=== PATIENT | male | born 1960 | race Caucasian/White ===

== ENCOUNTER 2021-04-09 16:32 | Observation (INO) | payer MEDICARE ==
[2021-04-09] MEDS ORDERED: Sodium Chloride 0.9% 10 ML Syringe FLUSH PRN (17:12)
[2021-04-09] MEDS ORDERED: Aspirin 81 MG Tab.Chew PO ONE (17:14)
[2021-04-09] MEDS ORDERED: Albuterol/Ipratropium 3.0-0.5 MG/3 ML Neb Soln NEB ONE ×2 (17:34→18:45)
[2021-04-09] MEDS ORDERED: LORazepam 2 MG/ML SDV IVPUSH ONE (18:43)
[2021-04-09] MEDS ORDERED: methylPREDNISolone Sodium Succinate 125 MG/2 ML SDV IVPUSH ONE (18:44)
--- NOTE | 2021-04-09 19:02 | CR ---
Chest: PA and lateral views of the chest were obtained. Comparison: No prior chest imaging is available. Small hiatal hernia appears to be present. Heart size and mediastinum are within normal limits for PA technique. Minimal density within the left midlung either due to atelectasis or scarring is seen. Lungs otherwise are clear. Bony structure shows nothing acute. Impression: 1. Findings believed to be incidental as noted above. 2. Nothing acute is appreciated on 2 view chest x-ray. Diagnostic code #2
--- NOTE | 2021-04-09 19:35 | EDM.PDOC ---
ED HPI GENERAL MEDICAL PROBLEM - General Chief Complaint: Chest Pain Stated Complaint: CHEST TIGHTNESS/SOB Time Seen by Provider: 04/09/21 17:10 Source of Information: Reports: Patient, RN Notes Reviewed History Limitations: Reports: No Limitations - History of Present Illness INITIAL COMMENTS - FREE TEXT/NARRATIVE: Patient is a 60-year-old male presenting to the emergency department with complaints of shortness of breath and chest tightness. Symptoms began around 3 PM this afternoon after patient took a nap. He describes left-sided chest tightness that wraps around to his back as well as shortness of breath. Pain does not go down his arm or up into his neck. Patient reports a history of COPD as well as cardiac stenting, however he is unsure if he actually had an IA or not as he has been told different things. He did also have a blood clot in his right arm following the stenting, therefore he is on Plavix. Patient moved to the area 1 month ago and reports that he has not been using his daily maintenance inhaler or his rescue inhaler. He is also been prescribed CPAP with oxygen, however he does not have these available to him. Prior to this afternoon, he states that he was doing quite well. He has had some nasal congestion over the last few days but denies any fever, cough, abdominal pain, nausea, vomiting, or diarrhea. Left Chest Pain Score (Numeric/FACES): 7 - Related Data Allergies Allergy/AdvReac Type Severity Reaction Status Date / Time cephalexin [From Keflex] Allergy Severe Rash Verified 04/09/21 16:43 Penicillins Allergy Severe Rash Verified 04/09/21 16:43 atenolol AdvReac Severe Cough Verified 04/09/21 16:43 Iodinated Contrast Media AdvReac Severe Vomiting Verified 04/09/21 16:44 Home Meds: Home Meds Clopidogrel [Plavix] 75 mg PO DAILY 04/09/21 [History] Gabapentin [Neurontin] 600 mg PO BID 04/09/21 [History] Losartan/Hydrochlorothiazide [Losartan-HCTZ 100-25 MG] 1 each PO DAILY 04/09/21 [History] Metoprolol Succinate 50 mg PO DAILY 04/09/21 [History] Pioglitazone [Actos] 30 mg PO DAILY 04/09/21 [History] carvediloL [Carvedilol] 0 mg PO BID 04/09/21 [History] metFORMIN HCl [Metformin HCl] 1,000 mg PO BID 04/09/21 [History] Past Medical History Cardiovascular History: Reports: High Cholesterol, Hypertension, IA Respiratory History: Reports: COPD Musculoskeletal History: Reports: Fracture Endocrine/Metabolic History: Reports: Diabetes, Type II, Obesity/BMI 30+ Hematologic History: Reports: Anticoagulation Therapy - Past Surgical History Cardiovascular Surgical History: Reports: Coronary Artery Stent GI Surgical History: Reports: Appendectomy, Cholecystectomy, Other (See Below) Other GI Surgeries/Procedures: Colon Resection Musculoskeletal Surgical History: Reports: Other (See Below) Other Musculoskeletal Surgeries/Procedures:: Finger Surgery Social & Family History - Tobacco Use Tobacco Use Status *Q: Former Tobacco User Used Tobacco, but Quit: Yes Month/Year Tobacco Last Used: 2019 - Caffeine Use Caffeine Use: Reports: Coffee, Soda - Recreational Drug Use Recreational Drug Use: No ED ROS GENERAL - Review of Systems Review Of Systems: See Below Constitutional: Reports: No Symptoms. Denies: Fever, Chills HEENT: Reports: No Symptoms Respiratory: Reports: Shortness of Breath, Wheezing Cardiovascular: Reports: Chest Pain, Dyspnea on Exertion. Denies: Lightheadedness, Palpitations, Syncope Endocrine: Reports: No Symptoms GI/Abdominal: Reports: No Symptoms : Reports: No Symptoms Musculoskeletal: Reports: No Symptoms Skin: Reports: No Symptoms Neurological: Reports: No Symptoms Psychiatric: Reports: No Symptoms Hematologic/Lymphatic: Reports: No Symptoms Immunologic: Reports: No Symptoms ED EXAM, GENERAL - Physical Exam Exam: See Below Exam Limited By: No Limitations General Appearance: Alert, WD/WN, No Apparent Distress Respiratory/Chest: No Respiratory Distress, No Accessory Muscle Use, Chest Non- Tender, Decreased Breath Sounds, Prolonged Expiration, Other (Diffuse expiratory wheeze throughout) Cardiovascular: Normal Peripheral Pulses, Regular Rate, Rhythm, No Edema, No Gallop, No JVD, No Murmur, No Rub GI/Abdominal: Normal Bowel Sounds, Soft, Non-Tender, No Organomegaly, No Distention, No Abnormal Bruit, No Mass Neurological: Alert, Oriented, CN II-XII Intact, Normal Cognition, Normal Gait, Normal Reflexes, No Motor/Sensory Deficits Psychiatric: Normal Affect, Anxious #1 Interpretation EKG Date: 04/09/21 Time: 16:37 Rhythm: NSR Rate (Beats/Min): 92 [place]: LAD-Left [place] Deviation P-Wave: Present QRS: RBBB ST-T: Normal QT: Prolonged (mildly) EKG Interpretation Comments: Sinus rhythm at 92/min Right bundle branch pattern T wave inversion V1 V2 Left axis deviation (-64) QTC mildly prolonged EKG interpreted by Dr. Sonya BHATT Course - Vital Signs Last Recorded V/S: Last Vital Signs Temp 98.4 F 04/09/21 22:25 Pulse 92 04/09/21 22:25 Resp 20 04/09/21 22:25 BP 155/102 H 04/09/21 22:25 Pulse Ox 97 04/09/21 22:25 - Orders/Labs/Meds Orders: Active Orders 24 hr Category Date Time Status Patient Status [ADT] Routine ADT 04/09/21 21:18 Active EKG 12 Lead [EKG Documentation Completion] [RC] ROUTINE Care 04/09/21 16:43 Active Oxygen Therapy [RC] PRN Care 04/09/21 21:18 Active Pulse Oximetry [RC] PRN Care 04/09/21 21:20 Active RT Aerosol Therapy [RC] ASDIRECTED Care 04/09/21 17:34 Active RT Aerosol Therapy [RC] ASDIRECTED Care 04/09/21 18:45 Active RT Aerosol Therapy [RC] ASDIRECTED Care 04/09/21 20:11 Active Up With Assistance [RC] QSHIFT Care 04/09/21 21:17 Active VTE/DVT Education [RC] BID Care 04/09/21 21:18 Active Vital Signs [RC] Q4HR Care 04/09/21 21:18 Active Respiratory Care Assess and Treatment [CONS] Routine Cons 04/09/21 21:17 Active Regular Diet [DIET] Diet 04/09/21 Breakfast Active BASIC METABOLIC PANEL,BMP [CHEM] AM Lab 04/10/21 05:11 Ordered CBC WITH AUTO DIFF [HEME] AM Lab 04/10/21 05:11 Ordered Sodium Chloride 0.9% [Saline Flush] Med 04/09/21 17:12 Active 10 ml FLUSH ASDIRECTED PRN Peripheral IV Insertion Adult [OM.PC] Routine Oth 04/09/21 17:12 Ordered Resuscitation Status Routine Resus Stat 04/09/21 21:17 Ordered Medication Orders Albuterol/Ipratropium (Albuterol/Ipratropium 3.0-0.5 Mg/3 Ml Neb Soln) 3 ml NEB Q2H PRN PRN Reason: Shortness of Breath Albuterol/Ipratropium (Albuterol/Ipratropium 3.0-0.5 Mg/3 Ml Neb Soln) 3 ml NEB Q4HRRT JYOTI Methylprednisolone Sodium Succinate (Methylprednisolone Sodium Succinate 40 Mg/1 Ml Sdv) 40 mg IVPUSH Q8H JYOTI Sodium Chloride (Sodium Chloride 0.9% 10 Ml Syringe) 10 ml FLUSH ASDIRECTED PRN PRN Reason: Keep Vein Open Last Admin: 04/09/21 17:28 Dose: 10 ml Documented by: MERRITT Labs: Laboratory Tests 04/09/21 04/09/21 04/09/21 Range/Units 16:45 16:45 16:45 WBC 7.77 (4.23-9.07) K/mm3 RBC 4.83 (4.63-6.08) M/mm3 Hgb 14.3 (13.7-17.5) gm/dl Hct 43.4 (40.1-51.0) % MCV 89.9 (79.0-92.2) fl MCH 29.6 (25.7-32.2) pg MCHC 32.9 (32.2-35.5) g/dl RDW Std Deviation 44.9 H (35.1-43.9) fL Plt Count 309 (163-337) K/mm3 MPV 9.5 (9.4-12.3) fl Neutrophils % (Manual) 61 H (40-60) % Band Neutrophils % 0 (0-10) % Lymphocytes % (Manual) 22 (20-40) % Atypical Lymphs % 0 % Monocytes % (Manual) 11 H (2-10) % Eosinophils % (Manual) 5 (0.8-7.0) % Basophils % (Manual) 1 (0.2-1.2) Platelet Estimate Adequate RBC Morph Comment Normal PT 10.3 (9.7-12.0) SECONDS INR 0.96 APTT 23.9 (21.7-31.4) SECONDS D-Dimer, Quantitative 0.28 (0.19-0.50) mg/L Sodium (136-145) mEq/L Potassium (3.5-5.1) mEq/L Chloride (98-107) mEq/L Carbon Dioxide (21-32) mEq/L Anion Gap (5-15) BUN (7-18) mg/dL Creatinine (0.7-1.3) mg/dL Est Cr Clr Drug Dosing mL/min Estimated GFR (MDRD) (>60) mL/min BUN/Creatinine Ratio (14-18) Glucose (70-99) mg/dL Calcium (8.5-10.1) mg/dL Magnesium (1.8-2.4) mg/dL Total Bilirubin (0.2-1.0) mg/dL AST (15-37) U/L ALT (16-63) U/L Alkaline Phosphatase (46-116) U/L Troponin I (0.00-0.056) ng/mL NT-Pro-B Natriuret Pep (0-125) pg/mL Total Protein (6.4-8.2) g/dl Albumin (3.4-5.0) g/dl Globulin gm/dL Albumin/Globulin Ratio (1-2) SARS-CoV-2 RNA (ANNA) (NEGATIVE) 04/09/21 04/09/21 04/09/21 Range/Units 16:45 16:45 17:30 WBC (4.23-9.07) K/mm3 RBC (4.63-6.08) M/mm3 Hgb (13.7-17.5) gm/dl Hct (40.1-51.0) % MCV (79.0-92.2) fl MCH (25.7-32.2) pg MCHC (32.2-35.5) g/dl RDW Std Deviation (35.1-43.9) fL Plt Count (163-337) K/mm3 MPV (9.4-12.3) fl Neutrophils % (Manual) (40-60) % Band Neutrophils % (0-10) % Lymphocytes % (Manual) (20-40) % Atypical Lymphs % % Monocytes % (Manual) (2-10) % Eosinophils % (Manual) (0.8-7.0) % Basophils % (Manual) (0.2-1.2) Platelet Estimate RBC Morph Comment PT (9.7-12.0) SECONDS INR APTT (21.7-31.4) SECONDS D-Dimer, Quantitative (0.19-0.50) mg/L Sodium 139 (136-145) mEq/L Potassium 4.0 (3.5-5.1) mEq/L Chloride 100 (98-107) mEq/L Carbon Dioxide 30 (21-32) mEq/L Anion Gap 13.0 (5-15) BUN 10 (7-18) mg/dL Creatinine 1.2 (0.7-1.3) mg/dL Est Cr Clr Drug Dosing 74.91 mL/min Estimated GFR (MDRD) > 60 (>60) mL/min BUN/Creatinine Ratio 8.3 L (14-18) Glucose 140 H (70-99) mg/dL Calcium 8.8 (8.5-10.1) mg/dL Magnesium 2.0 (1.8-2.4) mg/dL Total Bilirubin 0.3 (0.2-1.0) mg/dL AST 70 H (15-37) U/L ALT 78 H (16-63) U/L Alkaline Phosphatase 100 (46-116) U/L Troponin I < 0.017 (0.00-0.056) ng/mL NT-Pro-B Natriuret Pep 39 (0-125) pg/mL Total Protein 7.9 (6.4-8.2) g/dl Albumin 3.5 (3.4-5.0) g/dl Globulin 4.4 gm/dL Albumin/Globulin Ratio 0.8 L (1-2) SARS-CoV-2 RNA (ANNA) Negative (NEGATIVE) 04/09/21 Range/Units 19:51 WBC (4.23-9.07) K/mm3 RBC (4.63-6.08) M/mm3 Hgb (13.7-17.5) gm/dl Hct (40.1-51.0) % MCV (79.0-92.2) fl MCH (25.7-32.2) pg MCHC (32.2-35.5) g/dl RDW Std Deviation (35.1-43.9) fL Plt Count (163-337) K/mm3 MPV (9.4-12.3) fl Neutrophils % (Manual) (40-60) % Band Neutrophils % (0-10) % Lymphocytes % (Manual) (20-40) % Atypical Lymphs % % Monocytes % (Manual) (2-10) % Eosinophils % (Manual) (0.8-7.0) % Basophils % (Manual) (0.2-1.2) Platelet Estimate RBC Morph Comment PT (9.7-12.0) SECONDS INR APTT (21.7-31.4) SECONDS D-Dimer, Quantitative (0.19-0.50) mg/L Sodium (136-145) mEq/L Potassium (3.5-5.1) mEq/L Chloride (98-107) mEq/L Carbon Dioxide (21-32) mEq/L Anion Gap (5-15) BUN (7-18) mg/dL Creatinine (0.7-1.3) mg/dL Est Cr Clr Drug Dosing mL/min Estimated GFR (MDRD) (>60) mL/min BUN/Creatinine Ratio (14-18) Glucose (70-99) mg/dL Calcium (8.5-10.1) mg/dL Magnesium (1.8-2.4) mg/dL Total Bilirubin (0.2-1.0) mg/dL AST (15-37) U/L ALT (16-63) U/L Alkaline Phosphatase (46-116) U/L Troponin I < 0.017 (0.00-0.056) ng/mL NT-Pro-B Natriuret Pep (0-125) pg/mL Total Protein (6.4-8.2) g/dl Albumin (3.4-5.0) g/dl Globulin gm/dL Albumin/Globulin Ratio (1-2) SARS-CoV-2 RNA (ANNA) (NEGATIVE) Meds: Medications Generic Name Dose Route Start Last Admin Trade Name Freq PRN Reason Stop Dose Admin Albuterol/Ipratropium 3 ml 04/09/21 21:23 Albuterol/Ipratropium 3.0-0.5 Mg/3 Ml Neb Soln NEB Q2H PRN Shortness of Breath Albuterol/Ipratropium 3 ml 04/09/21 22:00 Albuterol/Ipratropium 3.0-0.5 Mg/3 Ml Neb Soln NEB Q4HRRT JYOTI Methylprednisolone Sodium Succinate 40 mg 04/10/21 02:00 Methylprednisolone Sodium Succinate 40 Mg/1 Ml Sdv IVPUSH Q8H JYOTI Sodium Chloride 10 ml 04/09/21 17:12 04/09/21 17:28 Sodium Chloride 0.9% 10 Ml Syringe FLUSH 10 ml ASDIRECTED PRN Administration Keep Vein Open Discontinued Medications Generic Name Dose Route Start Last Admin Trade Name David PRN Reason Stop Dose Admin Albuterol 2.5 mg 04/09/21 20:11 04/09/21 20:34 Albuterol 0.083% 2.5 Mg/3 Ml Neb Soln NEB 04/09/21 20:12 2.5 mg ONETIME ONE Administration Albuterol/Ipratropium 3 ml 04/09/21 17:34 04/09/21 17:39 Albuterol/Ipratropium 3.0-0.5 Mg/3 Ml Neb Soln NEB 04/09/21 17:35 3 ml ONETIME ONE Administration Albuterol/Ipratropium 3 ml 04/09/21 18:45 04/09/21 18:58 Albuterol/Ipratropium 3.0-0.5 Mg/3 Ml Neb Soln NEB 04/09/21 18:46 3 ml ONETIME ONE Administration Aspirin 324 mg 04/09/21 17:14 04/09/21 17:28 Aspirin 81 Mg Tab.Chew PO 04/09/21 17:15 324 mg ONETIME ONE Administration Lorazepam 1 mg 04/09/21 18:43 04/09/21 18:54 Lorazepam 2 Mg/Ml Sdv IVPUSH 04/09/21 18:44 1 mg ONETIME ONE Administration Methylprednisolone Sodium Succinate 125 mg 04/09/21 18:44 04/09/21 18:54 Methylprednisolone Sodium Succinate 125 Mg/2 Ml Sdv IVPUSH 04/09/21 18:45 125 mg ONETIME ONE Administration - Re-Assessments/Exams Free Text/Narrative Re-Assessment/Exam: Is a 60-year-old male presenting to the emergency department with complaints of chest tightness, and shortness of breath which began around 3 PM this afternoon. Patient has a history of COPD as well as coronary artery stenting. He has not been taking his COPD medications including long-acting inhaler which he does not know the name of or rescue inhaler. On exam, patient has diffuse expiratory wheezing throughout his lung godinez. He complains of tightness near the left fifth intercostal space which wraps around to his back. Exam is otherwise unremarkable. I have ordered cardiac work-up as well as aspirin 325 mg p.o. I will give him a DuoNeb breathing treatment. 04/09/21 1845 Hematology is grossly unremarkable. D-dimer is normal at 0.28, cardiac enzyme is undetectable, troponin is normal at 39. Chest x-ray shows no acute abnormalities. EKG shows sinus rhythm at 92/min with a right bundle branch pattern. There is T wave inversion in V1 and V2 which is nonspecific. Patient still has expiratory wheezing after the DuoNeb. He is also quite anxious. I have ordered a second DuoNeb breathing treatment, Solu-Medrol 125 mg IV, and Ativan 1 mg IV. [place] 19404/09/21 20:58 Repeat troponin was undetectably low. Oxygen saturation was maintaining 91 to 93% on room air with significant desaturations with sleep. Patient was placed on 2 L of oxygen saturating 95% on room air while awake. He does still desaturate into the 80s when sleeping, however he has a known diagnosis of sleep apnea. He has had a total of 2 DuoNeb treatments and an albuterol treatment and still has some diffuse expiratory wheezing. He still complains of chest tightness and shortness of breath. I feel he would benefit from admission for COPD exacerbation. Call placed to hospitalist, Dr. Crisostomo and voicemail was left. 04/09/21 21:18 Case discussed with hospitalist, Dr. Crisostomo. He has accepted the patient for admission for COPD exacerbation. Departure - Departure Time of Disposition: 22:28 Disposition: Refer to Observation Condition: Good Clinical Impression: COPD exacerbation - Discharge Information Sepsis Event Note (ED) - Evaluation Sepsis Screening Result: No Definite Risk - Focused Exam Vital Signs: Vital Signs Temp Pulse Resp BP Pulse Ox Pulse Ox Pulse Ox 04/09/21 20:11 95 04/09/21 18:45 93 L 04/09/21 17:34 95 04/09/21 16:38 96.9 F 92 20 160/103 H 95 - My Orders Last 24 Hours: My Active Orders 04/09/21 16:43 EKG 12 Lead [EKG Documentation Completion] [RC] ROUTINE 04/09/21 17:12 Sodium Chloride 0.9% [Saline Flush] 10 ml FLUSH ASDIRECTED PRN Peripheral IV Insertion Adult [OM.PC] Routine 04/09/21 17:34 RT Aerosol Therapy [RC] ASDIRECTED 04/09/21 18:45 RT Aerosol Therapy [RC] ASDIRECTED 04/09/21 20:11 RT Aerosol Therapy [RC] ASDIRECTED - Assessment/Plan Last 24 Hours: My Active Orders 04/09/21 16:43 EKG 12 Lead [EKG Documentation Completion] [RC] ROUTINE 04/09/21 17:12 Sodium Chloride 0.9% [Saline Flush] 10 ml FLUSH ASDIRECTED PRN Peripheral IV Insertion Adult [OM.PC] Routine 04/09/21 17:34 RT Aerosol Therapy [RC] ASDIRECTED 04/09/21 18:45 RT Aerosol Therapy [RC] ASDIRECTED 04/09/21 20:11 RT Aerosol Therapy [RC] ASDIRECTED
[2021-04-09] MEDS ORDERED: Albuterol 0.083% 2.5 MG/3 ML Neb Soln NEB ONE (20:11)
[2021-04-09] MEDS ORDERED: Albuterol/Ipratropium 3.0-0.5 MG/3 ML Neb Soln NEB PRN (21:23)
[2021-04-09] MEDS: Albuterol/Ipratropium 3.0-0.5 MG/3 ML Neb Soln NEB SCH (22:54)
[2021-04-10] MEDS: Gabapentin 600 MG Tab PO SCH ×3 (00:02→21:02)
[2021-04-10] MEDS: Albuterol/Ipratropium 3.0-0.5 MG/3 ML Neb Soln NEB SCH ×6 (01:36→21:08)
[2021-04-10] MEDS: methylPREDNISolone Sodium Succinate 40 MG/1 ML SDV IVPUSH SCH ×3 (01:52→17:11)
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
[2021-04-10] MEDS ORDERED: Gabapentin 600 MG Tab PO SCH (09:00)
[2021-04-10] MEDS: Hydrochlorothiazide 25 MG Tab PO SCH (09:14)
[2021-04-10] MEDS: Pantoprazole 40 MG Tab.CR PO SCH (09:15)
[2021-04-10] MEDS: Losartan 100 MG Tab PO SCH (09:15)
[2021-04-10] MEDS: Clopidogrel 75 MG Tab PO SCH (09:15)
[2021-04-10] MEDS: Carvedilol 12.5 MG Tab PO SCH ×2 (09:15→21:03)
[2021-04-10] MEDS: Docusate Sodium 100 MG Cap PO SCH ×2 (09:16→21:02)
[2021-04-10] MEDS: carBAMazepine 200 MG Tab PO SCH ×2 (10:51→21:03)
[2021-04-10] MEDS: Heparin Sodium 5,000 Units/ML Vial SUBCUT SCH (14:27)
[2021-04-10] MEDS: Insulin Lispro 100 UNIT/ML 10 ML Vial SUBCUT SCH (21:01)
[2021-04-11] MEDS: Heparin Sodium 5,000 Units/ML Vial SUBCUT SCH ×2 (01:20→13:30)
[2021-04-11] MEDS: methylPREDNISolone Sodium Succinate 40 MG/1 ML SDV IVPUSH SCH ×2 (01:20→11:45)
[2021-04-11] MEDS: Albuterol/Ipratropium 3.0-0.5 MG/3 ML Neb Soln NEB SCH ×4 (01:22→14:16)
[2021-04-11] MEDS: Insulin Lispro 100 UNIT/ML 10 ML Vial SUBCUT SCH ×2 (08:24→11:45)
[2021-04-11] MEDS: Carvedilol 12.5 MG Tab PO SCH (08:25)
[2021-04-11] MEDS: Hydrochlorothiazide 25 MG Tab PO SCH (08:25)
[2021-04-11] MEDS: carBAMazepine 200 MG Tab PO SCH (08:25)
[2021-04-11] MEDS: Docusate Sodium 100 MG Cap PO SCH (08:26)
[2021-04-11] MEDS: Losartan 100 MG Tab PO SCH (08:26)
[2021-04-11] MEDS: Clopidogrel 75 MG Tab PO SCH (08:26)
[2021-04-11] MEDS: Gabapentin 600 MG Tab PO SCH (08:26)
[2021-04-11] MEDS: Pantoprazole 40 MG Tab.CR PO SCH (08:26)
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
== END 2021-04-11 14:48 | disposition home or self-care (01) ==
LOC: JD.ED 16:32 → JD.MS 21:18
PROVIDERS: ADMIT Hospitalist; ATTEND Hospitalist
DX: J96.01 Acute respiratory failure with hypoxia (principal); J44.1 Chronic obstructive pulmonary disease with (acute) exacerbation; G47.33 Obstructive sleep apnea (adult) (pediatric); I25.10 Atherosclerotic heart disease of native coronary artery without angina pectoris; I25.2 Old myocardial infarction; E78.00 Pure hypercholesterolemia, unspecified; I10 Essential (primary) hypertension; E11.9 Type 2 diabetes mellitus without complications; E66.9 Obesity, unspecified; Z68.41 Body mass index [BMI] 40.0-44.9, adult; Z20.822 Contact with and (suspected) exposure to COVID-19; Z87.891 Personal history of nicotine dependence; Z88.0 Allergy status to penicillin; Z88.1 Allergy status to other antibiotic agents; Z91.041 Radiographic dye allergy status; Z79.899 Other long term (current) drug therapy; Z79.84 Long term (current) use of oral hypoglycemic drugs; Z86.73 Personal history of transient ischemic attack (TIA), and cerebral infarction without residual deficits
CPT/HCPCS: 36415; 71046; 71046-26; 80048; 80053; 82947; 83735; 83880; 84484; 85007; 85025; 85027; 85379; 85610; 85730; 93005; 93010; 94640; 94660; 94760; 94761; 96372; 96374; 96375; 96376; 99217; 99219; 99285; 99285-25; A9270-GY; G0378; J1644; J1815-GY; J2060; J2920; J2930; J7620-GY; U0002

== ENCOUNTER 2021-04-12 11:19 | Emergency (ER) | payer MEDICARE ==
[2021-04-12] MEDS ORDERED: Sodium Chloride 0.9% 10 ML Syringe FLUSH PRN (12:11)
[2021-04-12] MEDS ORDERED: Albuterol/Ipratropium 3.0-0.5 MG/3 ML Neb Soln NEB ONE (12:11)
[2021-04-12] MEDS ORDERED: Acetaminophen 325 MG Tab PO ONE (12:16)
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
[2021-04-12] MEDS ORDERED: Metoprolol Succinate 50 MG Tab.ER PO ONE (12:51)
[2021-04-12] MEDS ORDERED: Carvedilol 12.5 MG Tab PO ONE (12:51)
--- NOTE | 2021-04-12 13:10 | CR ---
Chest: Portable view of the chest was obtained. Comparison: Prior chest x-ray 04/09/21. Heart size and mediastinum are within normal limits. Hiatal hernia is noted. Lungs are clear with no acute parenchymal change. No acute osseous finding is seen. Impression: 1. Hiatal hernia. 2. Nothing acute is identified on portable chest x-ray. Diagnostic code #2
== END 2021-04-12 14:30 | disposition home or self-care (01) ==
LOC: JD.ED 11:19
DX: J44.1 Chronic obstructive pulmonary disease with (acute) exacerbation (principal); E78.00 Pure hypercholesterolemia, unspecified; I10 Essential (primary) hypertension; I25.2 Old myocardial infarction; E11.9 Type 2 diabetes mellitus without complications; E66.9 Obesity, unspecified; Z68.30 Body mass index [BMI] 30.0-30.9, adult; Z88.0 Allergy status to penicillin; Z88.6 Allergy status to analgesic agent; Z91.041 Radiographic dye allergy status; Z88.2 Allergy status to sulfonamides; Z88.1 Allergy status to other antibiotic agents; Z79.84 Long term (current) use of oral hypoglycemic drugs; Z79.02 Long term (current) use of antithrombotics/antiplatelets; Z79.899 Other long term (current) drug therapy
CPT/HCPCS: 36415; 71045; 80053; 83735; 84484; 85025; 85379; 86140; 93005; 94640; 99285; A9270; 93010; 99284; J7620-GY

== ENCOUNTER 2021-05-04 00:07 | Emergency (ER) | payer MEDICARE ==
[2021-05-04] MEDS ORDERED: Nitroglycerin 2% Oint 1 GM UD Packet TOP STA ×2 (01:54→04:10)
--- NOTE | 2021-05-04 02:02 | EDM.PDOC ---
ED HPI GENERAL MEDICAL PROBLEM - General Chief Complaint: Chest Pain Stated Complaint: CHEST PAIN Time Seen by Provider: 05/04/21 01:32 Source of Information: Reports: Patient, Family () History Limitations: Reports: No Limitations - History of Present Illness INITIAL COMMENTS - FREE TEXT/NARRATIVE: Mr. Huerta is a very pleasant 60-year-old gentleman who now presents to the ED stating that he started to feel "weird" around 22:30 last night. He states that it felt like his blood sugar was either too high or too low. He states that he was wheezing, therefore took a neb treatment. His checked his blood pressure, finding it to be elevated at 190/115. The patient states that he then developed relatively sudden-onset sharp chest pain felt mostly to the left side of his chest, but extending to the central chest, around 2300, while resting in bed. He states that he chronically feels dyspneic, but that his dyspnea probably got worse around that time. No associated nausea, diaphoresis, or sense of impending doom. He states that the pain has been constant, and he has not identified any modifiers, other than his pain improved, although did not resolve, for about 20 to 30 minutes after he took a single sublingual nitroglycerin. The patient has a history of an AR in December 2018. At that time, he states that he felt more of a squeezing sensation in the same location as tonight's pain. He does not recall if he had associated dyspnea, nausea, diaphoresis, or sense of impending doom at that time. A single coronary stent was placed at that time. The patient states that he has undergone a total of 3 coronary angiograms, most recently this past December. He states that a 55% lesion was found, that was not stented. Here in the ED [place], the patient's initial BP is found to be modestly elevated at 155/108 with slight tachypnea of 22 RPM. He is afebrile, saturating 95% on room air. While he states that he is still experiencing the chest pain, he does not appear to be in acute distress. Prior to last night, the patient denies having a recent fever, chills, sore throat, ear pain, nasal or sinus congestion, cough, dyspnea, chest pain, palpitations, nausea, vomiting, constipation, diarrhea, abdominal pain, urinary symptoms, recent weight gain or weight loss, recent bloody bowel movements or black bowel movements, recent joint aches, headaches, or rashes. The patient's PCP is Dr. Gurjit Loaiza. He has not received a COVID vaccination. Bilateral Lower Chest Pain Score (Numeric/FACES): 8 - Related Data Allergies Allergy/AdvReac Type Severity Reaction Status Date / Time cephalexin [From Keflex] Allergy Severe Rash Verified 05/04/21 03:27 morphine Allergy Severe Other Verified 05/04/21 03:27 Penicillins Allergy Severe Rash Verified 05/04/21 03:27 atenolol AdvReac Severe Cough Verified 05/04/21 03:27 Iodinated Contrast Media AdvReac Severe Vomiting Verified 05/04/21 03:27 PO antibiotics except Sulfa Allergy Severe Other Uncoded 05/04/21 03:27 Home Meds: Home Meds Cholecalciferol (Vitamin D3) [Vitamin D3] 50 mcg PO WEEKLY 04/09/21 [History] Clopidogrel [Plavix] 75 mg PO DAILY 04/09/21 [History] Docusate Sodium 100 mg PO BID PRN 04/09/21 [History] Gabapentin [Neurontin] 600 mg PO BID 04/09/21 [History] Pantoprazole Sodium [Protonix] 40 mg PO DAILY 04/09/21 [History] carvediloL [Carvedilol] 12.5 mg PO BID 04/09/21 [History] oxyCODONE HCl [Oxycodone HCl] 15 mg PO 5XDAY PRN 04/09/21 [History] Albuterol Sulfate [Albuterol Sulfate HFA] 8.5 gm INH Q2H PRN #1 ea 04/11/21 [Rx] Anoro Ellipta Inhaler 62.5 mcg INH DAILY 30 Days 04/11/21 [Rx] Losartan/Hydrochlorothiazide [Losartan-HCTZ 100-25 MG] 1 each PO DAILY #30 04/11/21 [Rx] carBAMazepine [TEGretol Tab] 200 mg PO BID tablet 04/11/21 [Rx] Albuterol Sulfate 2.5 mg IH Q4HR PRN #30 vial 04/12/21 [Rx] Past Medical History HEENT History: Reports: Impaired Vision (reading glasses) Cardiovascular History: Reports: Blood Clots/VTE/DVT (RUE), CAD, High Cholesterol, Hypertension, AR (Dec 2018) Respiratory History: Reports: Asthma (suspected, not PFT-tested), Sleep Apnea (nightly CPAP) Gastrointestinal History: Reports: Diverticulosis (diverticulitis, s/p hemicolectomy) Musculoskeletal History: Reports: Fracture (right 3rd finger, right hand, left ankle), Osteoarthritis Neurological History: Reports: CVA (x 2, with transient left hemiparesis) Endocrine/Metabolic History: Reports: Diabetes, Type II, Obesity/BMI 30+ - Infectious Disease History Infectious Disease History: Reports: Hepatitis B - Past Surgical History HEENT Surgical History: Reports: Oral Surgery (dental extractions) Cardiovascular Surgical History: Reports: Coronary Artery Stent (x 1, Dec 2018), Other (See Below) (Coronary angiogram x 3) GI Surgical History: Reports: Appendectomy, Cholecystectomy (2007 or 2009), Colon (Hemicolectomy due to diverticulitis) Musculoskeletal Surgical History: Reports: Other (See Below) (Right 3rd finger plate) Social & Family History - Tobacco Use Tobacco Use Status *Q: Former Tobacco User Years of Tobacco use: 20 Packs/Tins Daily: 2 Month/Year Tobacco Last Used: Quit Sep 2018 - Caffeine Use Caffeine Use: Reports: None - Alcohol Use Alcohol Use History: No - Recreational Drug Use Recreational Drug Use: No - Living Situation & Occupation Living situation: Reports: , with Spouse Occupation: Disabled ED ROS GENERAL - Review of Systems Review Of Systems: Comprehensive ROS is negative, except as noted in HPI. ED EXAM, GENERAL - Physical Exam Exam: See Below Exam Limited By: No Limitations General Appearance: Alert, WD/WN, No Apparent Distress Eye Exam: Bilateral Eye: EOMI, Normal Inspection Ears: Normal External Exam, Hearing Grossly Normal Nose: Normal Inspection Throat/Mouth: Normal Inspection, Normal Lips, Normal Voice, No Airway Compromise Head: Atraumatic, Normocephalic Neck: Normal Inspection, Full Range of Motion Respiratory/Chest: No Respiratory Distress, Lungs Clear, Normal Breath Sounds, No Accessory Muscle Use, Chest Non-Tender, Other (Pain not induced/modified with having the press his hands together with outstretched arms in front of him, or by crossing either arm across his chest). No: Decreased Breath Sounds, Crackles, Rhonchi, Wheezing, Stridor, Prolonged Expiration Cardiovascular: Normal Peripheral Pulses, Regular Rate, Rhythm, No Gallop, No JVD, No Murmur, No Rub Peripheral Pulses: 3+: Radial (L), Radial (R) GI/Abdominal: Normal Bowel Sounds, Soft, Non-Tender (including in the epigastrium), No Organomegaly, No Distention, No Abnormal Bruit, No Mass Back Exam: Normal Inspection, Full Range of Motion, NT Extremities: Normal Inspection, Normal Range of Motion, Normal Capillary Refill, Other (1-2+ tibial pitting edema bilaterally) Neurological: Alert, Oriented, Normal Cognition, No Motor/Sensory Deficits Psychiatric: Normal Affect Skin Exam: Warm, Dry, Intact, Normal Color, No Rash #1 Interpretation EKG Date: 05/04/21 Time: 00:56 Rhythm: NSR Rate (Beats/Min): 97 Amasa: LAD-Left Amasa Deviation P-Wave: Present QRS: RBBB (Early transition) ST-T: Normal QT: Normal Comparison: Change From Previous EKG (Nonspecific change in V1, V2 from 04/12/2021) #2 Interpretation EKG Date: 05/04/21 Time: 02:08 ST-T: Elevated (about [address] elevation V7-V9, with no inverted T-waves) Course - Vital Signs Last Recorded V/S: Last Vital Signs Temp 36.4 C 05/04/21 00:24 Pulse 96 05/04/21 02:22 Resp 22 H 05/04/21 00:24 BP 124/81 05/04/21 02:22 Pulse Ox 95 05/04/21 00:24 - Orders/Labs/Meds Orders: Active Orders 24 hr Category Date Time Status EKG Documentation Completion [RC] STAT Care 05/04/21 00:45 Active EKG Documentation Completion [RC] STAT Care 05/04/21 02:00 Active Chest 2V [CR] Stat Exams 05/04/21 01:16 Taken Heparin Sodium/D5W [Heparin 25,000 Units in D5W 500 ML] Med 05/04/21 04:00 Ordered 25,000 units in 500 ml IV TITRATE Medication Orders Heparin Sodium/Dextrose (Heparin 25,000 Units In D5w 500 Ml) 25,000 units in 500 mls @ 20 mls/hr IV TITRATE JYOTI; Protocol Labs: Laboratory Tests 05/04/21 05/04/21 05/04/21 Range/Units 01:00 01:00 01:00 WBC 8.58 (4.23-9.07) K/mm3 RBC 4.65 (4.63-6.08) M/mm3 Hgb 13.8 (13.7-17.5) gm/dl Hct 41.3 (40.1-51.0) % MCV 88.8 (79.0-92.2) fl MCH 29.7 (25.7-32.2) pg MCHC 33.4 (32.2-35.5) g/dl RDW Std Deviation 44.5 H (35.1-43.9) fL Plt Count 282 (163-337) K/mm3 MPV 9.5 (9.4-12.3) fl Neutrophils % (Manual) 72 H (40-60) % Band Neutrophils % 2 (0-10) % Lymphocytes % (Manual) 13 L (20-40) % Atypical Lymphs % 0 % Monocytes % (Manual) 8 (2-10) % Eosinophils % (Manual) 5 (0.8-7.0) % Basophils % (Manual) 0 L (0.2-1.2) Platelet Estimate Adequate RBC Morph Comment Normal PT 10.3 (9.7-12.0) SECONDS INR 0.96 APTT 25.6 (21.7-31.4) SECONDS D-Dimer, Quantitative 0.39 (0.19-0.50) mg/L Sodium 138 (136-145) mEq/L Potassium 4.1 (3.5-5.1) mEq/L Chloride 100 (98-107) mEq/L Carbon Dioxide 26 (21-32) mEq/L Anion Gap 16.1 H (5-15) BUN 8 (7-18) mg/dL Creatinine 1.2 (0.7-1.3) mg/dL Est Cr Clr Drug Dosing 74.91 mL/min Estimated GFR (MDRD) > 60 (>60) mL/min BUN/Creatinine Ratio 6.7 L (14-18) Glucose 219 H (70-99) mg/dL Calcium 8.9 (8.5-10.1) mg/dL Total Bilirubin 0.2 (0.2-1.0) mg/dL AST 34 (15-37) U/L ALT 55 (16-63) U/L Alkaline Phosphatase 86 (46-116) U/L Troponin I < 0.017 (0.00-0.056) ng/mL NT-Pro-B Natriuret Pep (0-125) pg/mL Total Protein 7.7 (6.4-8.2) g/dl Albumin 3.6 (3.4-5.0) g/dl Globulin 4.1 gm/dL Albumin/Globulin Ratio 0.9 L (1-2) SARS-CoV-2 RNA (ANNA) (NEGATIVE) 05/04/21 05/04/21 05/04/21 Range/Units 01:00 02:26 02:45 WBC (4.23-9.07) K/mm3 RBC (4.63-6.08) M/mm3 Hgb (13.7-17.5) gm/dl Hct (40.1-51.0) % MCV (79.0-92.2) fl MCH (25.7-32.2) pg MCHC (32.2-35.5) g/dl RDW Std Deviation (35.1-43.9) fL Plt Count (163-337) K/mm3 MPV (9.4-12.3) fl Neutrophils % (Manual) (40-60) % Band Neutrophils % (0-10) % Lymphocytes % (Manual) (20-40) % Atypical Lymphs % % Monocytes % (Manual) (2-10) % Eosinophils % (Manual) (0.8-7.0) % Basophils % (Manual) (0.2-1.2) Platelet Estimate RBC Morph Comment PT (9.7-12.0) SECONDS INR APTT (21.7-31.4) SECONDS D-Dimer, Quantitative (0.19-0.50) mg/L Sodium (136-145) mEq/L Potassium (3.5-5.1) mEq/L Chloride (98-107) mEq/L Carbon Dioxide (21-32) mEq/L Anion Gap (5-15) BUN (7-18) mg/dL Creatinine (0.7-1.3) mg/dL Est Cr Clr Drug Dosing mL/min Estimated GFR (MDRD) (>60) mL/min BUN/Creatinine Ratio (14-18) Glucose (70-99) mg/dL Calcium (8.5-10.1) mg/dL Total Bilirubin (0.2-1.0) mg/dL AST (15-37) U/L ALT (16-63) U/L Alkaline Phosphatase (46-116) U/L Troponin I < 0.017 (0.00-0.056) ng/mL NT-Pro-B Natriuret Pep 93 (0-125) pg/mL Total Protein (6.4-8.2) g/dl Albumin (3.4-5.0) g/dl Globulin gm/dL Albumin/Globulin Ratio (1-2) SARS-CoV-2 RNA (ANNA) Negative (NEGATIVE) Meds: Medications Generic Name Dose Route Start Last Admin Trade Name Freq PRN Reason Stop Dose Admin Heparin Sodium/Dextrose 25,000 units in 500 mls @ 20 mls/hr 05/04/21 04:00 Heparin 25,000 Units In D5w 500 Ml IV TITRATE JYOTI Protocol 1,000 UNITS/HR Discontinued Medications Generic Name Dose Route Start Last Admin Trade Name Freq PRN Reason Stop Dose Admin Aspirin 324 mg 05/04/21 02:09 05/04/21 02:17 Aspirin 81 Mg Tab.Chew PO 05/04/21 02:10 324 mg ONETIME STA Administration Heparin Sodium (Porcine) 4,000 units 05/04/21 03:55 05/04/21 04:06 Heparin Sodium 5,000 Units/Ml Vial IVPUSH 05/04/21 03:56 4,000 units .BOLUS STA Administration Metoprolol Tartrate 5 mg 05/04/21 02:09 05/04/21 02:22 Metoprolol Tartrate 5 Mg/5 Ml Sdv IVPUSH 05/04/21 02:10 5 mg ONETIME ONE Administration Nitroglycerin 0.5 gm 05/04/21 01:54 05/04/21 02:05 Nitroglycerin 2% Oint 1 Gm Ud Packet TOP 05/04/21 01:55 0.5 gm ONETIME STA Administration - Re-Assessments/Exams Free Text/Narrative Re-Assessment/Exam: 05/04/21 01:56 As above, the patient started feeling "weird" around 22:30 last night, took a neb treatment due to wheezing, then checked his blood pressure, finding it to be elevated at 190/115. Around 23:00, he developed relatively sudden-onset sharp left and central chest pain, not a discomfort, possibly associated with increased dyspnea, although he is always dyspneic. No associated nausea, diaphoresis, or sense of impending doom. His symptoms improved for about 20 to 30 minutes after he took a sublingual nitroglycerin, however, has returned to its baseline since and has persisted. He states that his current symptoms are different than when he had an AR in 2019, insofar as he had more of a squeezing sensation, although in the same location, at that time. He does not recall if he had associated dyspnea, nausea, diaphoresis, or sense of impending doom at that time. An ECG, obtained at triage, demonstrates a normal sinus rhythm with right bundle branch block. I do not personally see any ischemic changes, however, the computer is reading it is an acute posterior wall AR. The patient's physical exam is unremarkable, including no tenderness to palpation of his chest, and pain is not induced by having the patient press his hands together with outstretched arms in front of him, or by crossing his arms across his chest. A work-up, including a CBC, CMP, troponin level, and chest x-ray was ordered at triage. I have added a posterior wall ECG (leads V7V9), a D-dimer, pro-BNP, and coags. In the meantime, the patient will be given four 81 mg aspirins, 5 mg of IV Lopressor, and 0.5 mg Nitropaste will be applied to the patient. He will also be swabbed for the SARS-CoV-2 virus. 05/04/21 02:13 The posterior ECG demonstrates a NSR with a RBBB. There is perhaps [address] elevation, with no T wave inversions, in leads V7 to V9. 05/04/21 02:25 Two-view chest radiograph reviewed. The cardiac silhouette is within normal limits. No pulmonary vascular congestion. No pleural effusions. No focal infiltrate. No pneumothorax. A hiatal hernia is present. Formal read per the Radiologist pending. The patient's CBC is unremarkable. His CMP is remarkable for hyperglycemia of 219, and is otherwise unremarkable. His troponin is undetectably low. His D-dimer is within normal limits at 0.39. His coags are within normal limits. Results of his pro-BNP and swab for the SARS-CoV-2 virus are still pending. It has been about 3-1/2 hours since the onset of the patient's chest pain. I have ordered a repeat troponin. 05/04/21 02:38 The patient reports significant improvement in his chest pain following the application of Nitropaste. 05/04/21 03:35 The patient's swab for the SARS-CoV-2 virus is negative. His pro-BNP is within normal limits at 93. His repeat troponin remains undetectably low. 05/04/21 03:40 Test results discussed with the patient and his . As above, today's work-up is unremarkable, however, I am concerned that his symptoms are cardiac in et iology, particularly because he gets relief with nitroglycerin. I am recommending transfer to [place] so that he can be evaluated by a Cabinet Worker. Additionally, no beds are available at this facility, and I am not comfortable in discharging him home. The patient prefers [facility]. 05/04/21 03:58 Case discussed with Hien at [facility] at 03:44. Hien noted that the patient has an appointment to see Dr. Hahn on 05/25/2021. Case then discussed with Dr. Ceron, Hospitalist at [facility], at 03:48. She accepted the patient for transfer to their facility. She left it up to me if we wanted to start the patient on heparin or not. The patient will be transported by ground ambulance. I do not see any strict contraindications to starting the patient on heparin, therefore I have ordered a heparin bolus and drip. 05/04/21 04:08 Chest x-ray images pushed to [facility] at this time. 05/04/21 04:11 Notified by Laura DEWITT that the patient is still complaining of some chest pain. I have ordered a second 0.5 mg Nitropaste be applied to the patient's chest. Departure - Departure Time of Disposition: 03:59 Disposition: Home, Self-Care 01 Condition: Good Clinical Impression: Chest pain of uncertain etiology, Hyperglycemia due to type 2 diabetes mellitus Referrals: Feng Hahn MD [Ordering Only Provider] - Gurjit Macias MD [Physician] - Forms: ED Department Discharge Sepsis Event Note (ED) - Evaluation Sepsis Screening Result: No Definite Risk - Focused Exam Vital Signs: Vital Signs Temp Pulse Pulse Resp BP BP Pulse Ox 05/04/21 02:22 96 124/81 05/04/21 00:24 36.4 C 100 22 H 155/108 H 95 - My Orders Last 24 Hours: My Active Orders 05/04/21 00:45 EKG Documentation Completion [RC] STAT 05/04/21 01:16 Chest 2V [CR] Stat 05/04/21 02:00 EKG Documentation Completion [RC] STAT 05/04/21 04:00 Heparin Sodium/D5W [Heparin 25,000 Units in D5W 500 ML] 25,000 units in 500 ml IV TITRATE - Assessment/Plan Last 24 Hours: My Active Orders 05/04/21 00:45 EKG Documentation Completion [RC] STAT 05/04/21 01:16 Chest 2V [CR] Stat 05/04/21 02:00 EKG Documentation Completion [RC] STAT 05/04/21 04:00 Heparin Sodium/D5W [Heparin 25,000 Units in D5W 500 ML] 25,000 units in 500 ml IV TITRATE
[2021-05-04] MEDS ORDERED: Metoprolol Tartrate 5 MG/5 ML SDV IVPUSH ONE (02:09)
[2021-05-04] MEDS ORDERED: Aspirin 81 MG Tab.Chew PO STA (02:09)
[2021-05-04] MEDS ORDERED: Heparin Sodium 5,000 Units/ML Vial IVPUSH STA (03:55)
[2021-05-04] MEDS ORDERED: Heparin Sodium/D5W 25,000 UNITS/500 ML BAG IV SCH (04:00)
--- NOTE | 2021-05-04 09:14 | CR ---
Chest: 2 views of the chest were obtained. Comparison: Prior chest x-ray of 04/12/21. Heart size is within normal limits. Hiatal hernia is noted. Density is seen within the left lung base. Uncertain if this is due to pneumonia or atelectasis. Lungs otherwise are clear. Bony structures show nothing acute. Impression: 1. Density within the left lung base either due to atelectasis or small area of pneumonia if patient has infectious symptoms. 2. Hiatal hernia. 3. Nothing acute is otherwise seen. Diagnostic code #3
== END 2021-05-04 06:37 | disposition home or self-care (01) ==
LOC: JD.ED 00:07
DX: R07.9 Chest pain, unspecified (principal); E11.65 Type 2 diabetes mellitus with hyperglycemia; I25.10 Atherosclerotic heart disease of native coronary artery without angina pectoris; E78.00 Pure hypercholesterolemia, unspecified; I10 Essential (primary) hypertension; I25.2 Old myocardial infarction; Z86.718 Personal history of other venous thrombosis and embolism; Z86.73 Personal history of transient ischemic attack (TIA), and cerebral infarction without residual deficits; Z88.0 Allergy status to penicillin; Z88.1 Allergy status to other antibiotic agents; Z88.5 Allergy status to narcotic agent; Z91.041 Radiographic dye allergy status; Z88.2 Allergy status to sulfonamides; Z79.02 Long term (current) use of antithrombotics/antiplatelets; Z79.899 Other long term (current) drug therapy; Z87.891 Personal history of nicotine dependence; Z95.5 Presence of coronary angioplasty implant and graft; Z20.822 Contact with and (suspected) exposure to COVID-19
CPT/HCPCS: 36415; 71046; 80053; 83880; 84484; 85007; 85027; 85379; 85610; 85730; 93005; 96365; 96366; 96375; 99285; A9270; J1644; J3490; U0002; 93010; 99284

== ENCOUNTER 2021-06-05 18:42 | Emergency (ER) | payer MEDICARE ==
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
--- NOTE | 2021-06-05 19:36 | CR ---
Right foot: 3 views of the right foot were obtained. Comparison: No prior foot study is available. Minimal plantar spur is noted. Very small bony density is seen off the navicular bone which is a normal variant. Joint spaces are fairly well preserved. No acute fracture, dislocation or other bony abnormality is seen. Impression: 1. Findings which are felt to be chronic as noted above. 2. No acute abnormality is seen on right foot exam. Diagnostic code #2
--- NOTE | 2021-06-05 19:36 | CR ---
Right ankle: 4 views of the right ankle were obtained. Comparison: No prior ankle study is available. Small plantar spur is noted. Ankle mortise is symmetric. No acute fracture, dislocation or other bony abnormality is seen. Impression: 1. Small plantar spur. 2. Nothing acute is seen on right ankle exam. Diagnostic code #2
== END 2021-06-05 20:01 | disposition home or self-care (01) ==
LOC: JD.ED 18:42
DX: S93.401A Sprain of unspecified ligament of right ankle, initial encounter (principal); I25.10 Atherosclerotic heart disease of native coronary artery without angina pectoris; I10 Essential (primary) hypertension; E78.00 Pure hypercholesterolemia, unspecified; I25.2 Old myocardial infarction; E11.9 Type 2 diabetes mellitus without complications; E66.9 Obesity, unspecified; Z68.41 Body mass index [BMI] 40.0-44.9, adult; Z86.73 Personal history of transient ischemic attack (TIA), and cerebral infarction without residual deficits; Z88.5 Allergy status to narcotic agent; Z88.0 Allergy status to penicillin; Z91.041 Radiographic dye allergy status; Z88.2 Allergy status to sulfonamides; Z88.8 Allergy status to other drugs, medicaments and biological substances; Z79.02 Long term (current) use of antithrombotics/antiplatelets; Z79.899 Other long term (current) drug therapy; X50.1XXA Overexertion from prolonged static or awkward postures, initial encounter
CPT/HCPCS: 73610-26-RT; 73610-RT; 73630-26-RT; 73630-RT; 99282; 99283-25

== ENCOUNTER 2021-07-20 20:44 | Emergency (ER) | payer MEDICARE ==
[2021-07-20] MEDS ORDERED: Ondansetron 4 MG/2 ML SDV IVPUSH ONE (21:53)
[2021-07-20] MEDS ORDERED: HYDROmorphone 1 MG/ML Syringe IVPUSH ONE (21:53)
--- NOTE | 2021-07-20 21:55 | EDM.PDOC ---
ED HPI GENERAL MEDICAL PROBLEM - General Chief Complaint: Back Pain or Injury Stated Complaint: FALL/BACK PAIN Time Seen by Provider: 07/20/21 20:54 Source of Information: Reports: Patient History Limitations: Reports: No Limitations - History of Present Illness INITIAL COMMENTS - FREE TEXT/NARRATIVE: A trauma alert was called for this patient. Mr. Huerta is a very pleasant 60-year-old gentleman who now presents to the ED with lower back pain. He states that he has a history of degenerative disc disease with spinal stenosis, and that he slipped while at home, falling over a chair around 18:00 to 19:00 tonight. He states that he landed on his left side. He states that he did not hit his head. He denies pain radiating down either lower extremity, and denies tingling, numbness, or weakness of either lower extremity. The patient states that he ordinarily takes 1 oxycodone every 6 hours, and that he had taken his usual dose around 18:00, before he fell. He did not take any additional after he fell. Here in the ED, the patient's initial BP is found to be slightly elevated at 142/84, with mild tachycardia of 109 bpm. He is afebrile, saturating 94% on room air. He appears to be relatively comfortable while lying semirecumbent on the gurney, but appeared to be quite uncomfortable when asked to roll in order to examine his back. The patient also reported that shortly after arriving to the ED, his chest started feeling "funny" like when he had previously suffered an ID. Prior to stephen's fall, the patient denies having a recent fever, chills, sore throat, ear pain, nasal or sinus congestion, cough, dyspnea, chest pain, palpitations, nausea, vomiting, constipation, diarrhea, abdominal pain, urinary symptoms, recent weight gain or weight loss, recent bloody bowel movements or black bowel movements, recent joint aches, headaches, or rashes. The patient's PCP is Dr. Gurjit Loaiza. He does not recall the name of his [employer]. His Neurosurgeon is Dr. Heriberto Pinto. He does not recall the name of his Urologist. He has not received a COVID vaccination. Lower Back Pain Score (Numeric/FACES): 9 - Related Data Allergies Allergy/AdvReac Type Severity Reaction Status Date / Time cephalexin [From Keflex] Allergy Severe Rash Verified 06/05/21 18:50 codeine Allergy Severe Rash Verified 06/05/21 18:51 morphine Allergy Severe Other Verified 06/05/21 18:50 Penicillins Allergy Severe Rash Verified 06/05/21 18:50 [id number] Reductase Allergy Other Verified 07/20/21 20:58 Inhibitor atenolol AdvReac Severe Cough Verified 06/05/21 18:50 Iodinated Contrast Media AdvReac Severe Vomiting Verified 06/05/21 18:50 PO antibiotics except Sulfa Allergy Severe Other Uncoded 06/05/21 18:50 Home Meds: Home Meds Cholecalciferol (Vitamin D3) [Vitamin D3] 50 mcg PO WEEKLY 04/09/21 [History] Clopidogrel [Plavix] 75 mg PO DAILY 04/09/21 [History] Docusate Sodium 100 mg PO BID PRN 04/09/21 [History] Gabapentin [Neurontin] 600 mg PO BID 04/09/21 [History] Pantoprazole Sodium [Protonix] 40 mg PO DAILY 04/09/21 [History] carvediloL [Carvedilol] 12.5 mg PO BID 04/09/21 [History] oxyCODONE HCl [Oxycodone HCl] 15 mg PO 5XDAY PRN 04/09/21 [History] Albuterol Sulfate [Albuterol Sulfate HFA] 8.5 gm INH Q2H PRN #1 ea 04/11/21 [Rx] Anoro Ellipta Inhaler 62.5 mcg INH DAILY 30 Days 04/11/21 [Rx] Losartan/Hydrochlorothiazide [Losartan-HCTZ 100-25 MG] 1 each PO DAILY #30 04/11/21 [Rx] carBAMazepine [TEGretol Tab] 200 mg PO BID tablet 04/11/21 [Rx] Albuterol Sulfate 2.5 mg IH Q4HR PRN #30 vial 04/12/21 [Rx] Orphenadrine [Norflex] 1 tab PO Q12H PRN #14 tab.er 07/21/21 [Rx] Past Medical History HEENT History: Reports: Impaired Vision (wears reading glasses) Cardiovascular History: Reports: Blood Clots/VTE/DVT (RUE DVT), CAD, High Cholesterol, Hypertension Respiratory History: Reports: Asthma (suspected, not PFT-tested), COPD (suspected, not PFT-tested), Sleep Apnea (nightly CPAP with O2) Gastrointestinal History: Reports: Diverticulosis (diverticulitis, s/p hemicolectomy), GERD Genitourinary History: Reports: BPH (untreated), Chronic Renal Insuffiency, Renal Calculus Musculoskeletal History: Reports: Back Pain, Chronic (DDD, spinal stenosis), Osteoarthritis Neurological History: Reports: CVA (2 lacunar infarcts on MRI) Endocrine/Metabolic History: Reports: Diabetes, Type II, Obesity/BMI 30+ - Infectious Disease History Infectious Disease History: Reports: Hepatitis B - Past Surgical History HEENT Surgical History: Reports: Oral Surgery Cardiovascular Surgical History: Reports: Coronary Artery Stent (x 1), Other (See Below) (Coronary angiogram x 4 or 5) GI Surgical History: Reports: Appendectomy, Cholecystectomy (around 2008), Colon (hemicolectomy for diverticulitis), Colonoscopy (x 1) Musculoskeletal Surgical History: Reports: Other (See Below) (Right 3rd finger ORIF + pins) Social & Family History - Tobacco Use Tobacco Use Status *Q: Former Tobacco User Years of Tobacco use: 19 Packs/Tins Daily: 1 Month/Year Tobacco Last Used: Quit Sep 2018 Tobacco Use Comment: Started smoking 1999 - Caffeine Use Caffeine Use: Reports: Coffee, Soda - Alcohol Use Alcohol Use History: No - Recreational Drug Use Recreational Drug Use: No - Living Situation & Occupation Living situation: Reports: , with Spouse, with Family ([id number]) Occupation: Disabled ED ROS GENERAL - Review of Systems Review Of Systems: Comprehensive ROS is negative, except as noted in HPI. ED EXAM, GENERAL - Physical Exam Exam: See Below Exam Limited By: No Limitations General Appearance: Alert, WD/WN, No Apparent Distress Eye Exam: Bilateral Eye: EOMI, Normal Inspection Ears: Normal External Exam, Hearing Grossly Normal Nose: Normal Inspection Throat/Mouth: Normal Inspection, Normal Lips, Normal Voice, No Airway Compromise Head: Atraumatic, Normocephalic Neck: Normal Inspection, Full Range of Motion Respiratory/Chest: No Respiratory Distress, Lungs Clear, Normal Breath Sounds, No Accessory Muscle Use Cardiovascular: Normal Peripheral Pulses, Regular Rate, Rhythm, No Gallop, No JVD, No Murmur, No Rub Peripheral Pulses: 3+: Radial (L), Radial (R) GI/Abdominal: Normal Bowel Sounds, Soft, Non-Tender, No Organomegaly, No Distention, No Abnormal Bruit, No Mass Back Exam: Other (No visible abnormality to the lumbar spine, such as swelling, erythema, ecchymosis, or abrasion. Patient reports tenderness to palpation over the lumbar spinous processes, with minimal tenderness over the lumbar paraspinous muscles.) Extremities: Normal Inspection, Normal Range of Motion, Normal Capillary Refill Neurological: Alert, Oriented, Normal Cognition, No Motor/Sensory Deficits Psychiatric: Normal Affect Skin Exam: Warm, Dry, Intact, Normal Color, No Rash #1 Interpretation EKG Date: 07/20/21 Time: 22:24 Rhythm: NSR Rate (Beats/Min): 99 [place]: LAD-Left [place] Deviation P-Wave: Present QRS: Other (Early transition) ST-T: Normal QT: Prolonged (QTc 471 ms) Comparison: No Change (05/04/2021) Course - Vital Signs Last Recorded V/S: Last Vital Signs Temp 36.6 C 07/20/21 20:52 Pulse 109 H 07/20/21 20:52 Resp 18 07/20/21 20:52 BP 142/84 H 07/20/21 20:52 Pulse Ox 94 L 07/20/21 20:52 - Orders/Labs/Meds Orders: Active Orders 24 hr Category Date Time Status Chest 1V Frontal [CR] Stat Exams 07/20/21 21:52 Taken Lumbar Spine wo Cont [CT] Stat Exams 07/20/21 21:52 Taken HYDROmorphone [Dilaudid] Med 07/21/21 02:44 Once 1 mg IVPUSH ONETIME ONE Orphenadrine [Norflex] Med 07/21/21 02:44 Stat 100 mg PO ONETIME STA Sodium Chloride 0.9% [Normal Saline] 1,000 ml Med 07/20/21 22:00 Active IV ASDIRECTED Medication Orders Sodium Chloride (Normal Saline) 1,000 mls @ 150 mls/hr IV ASDIRECTED JYOTI Last Admin: 07/20/21 23:05 Dose: 150 mls/hr Documented by: SABRINA Labs: Laboratory Tests 07/20/21 07/20/21 07/20/21 Range/Units 22:08 22:08 23:44 WBC 10.33 H (4.23-9.07) K/mm3 RBC 4.85 (4.63-6.08) M/mm3 Hgb 14.2 (13.7-17.5) gm/dl Hct 42.1 (40.1-51.0) % MCV 86.8 (79.0-92.2) fl MCH 29.3 (25.7-32.2) pg MCHC 33.7 (32.2-35.5) g/dl RDW Std Deviation 42.8 (35.1-43.9) fL Plt Count 293 (163-337) K/mm3 MPV 9.5 (9.4-12.3) fl Neutrophils % (Manual) 67 H (40-60) % Band Neutrophils % 0 (0-10) % Lymphocytes % (Manual) 26 (20-40) % Atypical Lymphs % 0 % Monocytes % (Manual) 7 (2-10) % Eosinophils % (Manual) 0 L (0.8-7.0) % Basophils % (Manual) 0 L (0.2-1.2) Platelet Estimate Adequate RBC Morph Comment Normal Sodium 132 L (136-145) mEq/L Potassium 3.7 (3.5-5.1) mEq/L Chloride 98 (98-107) mEq/L Carbon Dioxide 24 (21-32) mEq/L Anion Gap 13.7 (5-15) BUN 21 H (7-18) mg/dL Creatinine 1.4 H (0.7-1.3) mg/dL Est Cr Clr Drug Dosing TNP Estimated GFR (MDRD) 52 (>60) mL/min BUN/Creatinine Ratio 15.0 (14-18) Glucose 222 H (70-99) mg/dL Calcium 8.4 L (8.5-10.1) mg/dL Total Bilirubin 0.2 (0.2-1.0) mg/dL AST 28 (15-37) U/L ALT 52 (16-63) U/L Alkaline Phosphatase 96 (46-116) U/L Troponin I < 0.017 (0.00-0.056) ng/mL Total Protein 7.9 (6.4-8.2) g/dl Albumin 3.7 (3.4-5.0) g/dl Globulin 4.2 gm/dL Albumin/Globulin Ratio 0.9 L (1-2) SARS-CoV-2 RNA (ANNA) Negative (NEGATIVE) 07/21/21 Range/Units 01:20 WBC (4.23-9.07) K/mm3 RBC (4.63-6.08) M/mm3 Hgb (13.7-17.5) gm/dl Hct (40.1-51.0) % MCV (79.0-92.2) fl MCH (25.7-32.2) pg MCHC (32.2-35.5) g/dl RDW Std Deviation (35.1-43.9) fL Plt Count (163-337) K/mm3 MPV (9.4-12.3) fl Neutrophils % (Manual) (40-60) % Band Neutrophils % (0-10) % Lymphocytes % (Manual) (20-40) % Atypical Lymphs % % Monocytes % (Manual) (2-10) % Eosinophils % (Manual) (0.8-7.0) % Basophils % (Manual) (0.2-1.2) Platelet Estimate RBC Morph Comment Sodium (136-145) mEq/L Potassium (3.5-5.1) mEq/L Chloride (98-107) mEq/L Carbon Dioxide (21-32) mEq/L Anion Gap (5-15) BUN (7-18) mg/dL Creatinine (0.7-1.3) mg/dL Est Cr Clr Drug Dosing Estimated GFR (MDRD) (>60) mL/min BUN/Creatinine Ratio (14-18) Glucose (70-99) mg/dL Calcium (8.5-10.1) mg/dL Total Bilirubin (0.2-1.0) mg/dL AST (15-37) U/L ALT (16-63) U/L Alkaline Phosphatase (46-116) U/L Troponin I < 0.017 (0.00-0.056) ng/mL Total Protein (6.4-8.2) g/dl Albumin (3.4-5.0) g/dl Globulin gm/dL Albumin/Globulin Ratio (1-2) SARS-CoV-2 RNA (ANNA) (NEGATIVE) Meds: Medications Generic Name Dose Route Start Last Admin Trade Name Freq PRN Reason Stop Dose Admin Sodium Chloride 1,000 mls @ 150 mls/hr 07/20/21 22:00 07/20/21 23:05 Normal Saline IV 150 mls/hr ASDIRECTED JYOTI Administration Discontinued Medications Generic Name Dose Route Start Last Admin Trade Name David WINSTON Reason Stop Dose Admin Hydromorphone HCl 1 mg 07/20/21 21:53 07/20/21 23:02 Hydromorphone 1 Mg/Ml Syringe IVPUSH 07/20/21 21:54 1 mg ONETIME ONE Administration Hydromorphone HCl 1 mg 07/21/21 01:10 07/21/21 01:17 Hydromorphone 1 Mg/Ml Syringe IVPUSH 07/21/21 01:11 1 mg ONETIME ONE Administration Ondansetron HCl 4 mg 07/20/21 21:53 07/20/21 23:03 Ondansetron 4 Mg/2 Ml Sdv IVPUSH 07/20/21 21:54 4 mg ONETIME ONE Administration - Re-Assessments/Exams Free Text/Narrative Re-Assessment/Exam: 07/20/21 21:54 The patient reports tenderness to palpation of his lumbar spinous processes, with less tenderness to the paraspinous musculature, therefore I have ordered a CT of the L-spine without contrast to evaluate for fracture. The patient is also reporting that his chest feels "funny", like he did when he was having an ID, therefore I have ordered some blood tests, a portable chest x-ray, and an ECG. In the event that the patient requires admission or transfer, I will also order a swab for the SARS-CoV-2 virus. In the meantime, the patient will be given some IV Dilaudid, IV Zofran, and IV fluid. 07/20/21 23:08 Portable chest radiograph appears to be grossly normal. The cardiac silhouette is within normal limits. No pulmonary vascular congestion. No pleural effusions seen on this AP view. No focal infiltrate. No pneumothorax. Hiatal hernia noted. Formal read per the Radiologist pending. 07/21/21 01:00 The patient's swab for the SARS-CoV-[address] of the lumbar spine without contrast is read by [facility] as "Nondisplaced bilateral L2 transverse process fractures. Age indeterminate." 07/21/21 01:[address] images were pushed to [facility] at 01:01. Case discussed with Singh at [facility] at 01:02. Dr. Tabor is on- call for Neurosurgery, however, she is concerned that he may want to view the images before discussing the case, and the images may take about 30 minutes to arrive in [place]. I will call Singh back in about 20 or 30 minutes. 07/21/21 01:12 The above situation was discussed with the patient. Since we have to wait, I will repeat a troponin. The patient will also be given some additional Dilaudid. 07/21/21 02:00 The patient's repeat troponin is still undetectably low. 07/21/21 02:08 Case discussed with Singh at [facility] at 01:33. She had just received the images. She was unable to reach Dr. Tabor despite numerous attempts. She then pushed the images to , and once they receive them, she will call me back to connect me to a Neurosurgeon at . 07/21/21 02:37 Contacted by Kimberly from [facility] at 02:34. Case then discussed with Dr. Cedillo, Neurosurgeon on-call at , at 02:34. He confirmed that transverse process fractures are nonstructural, and therefore do not require surgical treatment, and, indeed, the patient does not even require repeat imaging. The only treatment is pain control. 07/21/21 02:[address] Cedillo discussed with the patient and his . The patient is already on oxycodone 15 mg Q 6 hrs - I am not going to change that, but I will start him on Norflex, and submit a prescription for the same. He will be given an additional dose of Dilaudid before being discharged. Departure - Departure Time of Disposition: 02:47 Disposition: Home, Self-Care 01 Condition: Good Clinical Impression: Lumbar transverse process fracture, Non-cardiac chest pain, Fall at home - Discharge Information *PRESCRIPTION DRUG MONITORING PROGRAM REVIEWED*: Not Applicable *COPY OF PRESCRIPTION DRUG MONITORING REPORT IN PATIENT CHITRA: Not Applicable Referrals: Gurjit Macias MD [Physician] - Heriberto Pitno MD [Ordering Only Provider] - Forms: ED Department Discharge Additional Instructions: You were seen in the emergency room after slipping and falling over a chair at home, injuring your lower back. Once in the ER, you also developed some chest discomfort. Work-up included numerous blood tests, a swab for the SARS-CoV-2 virus, a CT of your lumbar spine, and an ECG. The CT scan found nondisplaced fractures of your bilateral L2 transverse processes. Your case was discussed with a Neurosurgeon at , who opined that no further treatment was necessary. You may continue to take your previously prescribed oxycodone, 1 tablet every 6 hours, as prescribed. You have been started on the muscle relaxant Norflex, and a prescription for Norflex has been sent to the [facility], located just south and across the [address] from [facility]. Take 1 tablet of Norflex every 12 hours, starting this afternoon/evening, 07/21/2021, as needed for lower back pain. Please follow-up with your Neurosurgeon, Dr. Heriberto Pinto, at the next available appointment. If any other problems, please do not hesitate to return to the ER. Sepsis Event Note (ED) - Evaluation Sepsis Screening Result: No Definite Risk - Focused Exam Vital Signs: Vital Signs Temp Pulse Resp BP Pulse Ox 07/20/21 20:52 36.6 C 109 H 18 142/84 H 94 L - My Orders Last 24 Hours: My Active Orders 07/20/21 21:52 Chest 1V Frontal [CR] Stat Lumbar Spine wo Cont [CT] Stat 07/20/21 22:00 Sodium Chloride 0.9% [Normal Saline] 1,000 ml IV ASDIRECTED 07/21/21 02:44 HYDROmorphone [Dilaudid] 1 mg IVPUSH ONETIME ONE Orphenadrine [Norflex] 100 mg PO ONETIME STA - Assessment/Plan Last 24 Hours: My Active Orders 07/20/21 21:52 Chest 1V Frontal [CR] Stat Lumbar Spine wo Cont [CT] Stat 07/20/21 22:00 Sodium Chloride 0.9% [Normal Saline] 1,000 ml IV ASDIRECTED 07/21/21 02:44 HYDROmorphone [Dilaudid] 1 mg IVPUSH ONETIME ONE Orphenadrine [Norflex] 100 mg PO ONETIME STA
[2021-07-20] MEDS ORDERED: Sodium Chloride 0.9% 1,000 ML IV SCH (22:00)
[2021-07-21] MEDS ORDERED: HYDROmorphone 1 MG/ML Syringe IVPUSH ONE ×2 (01:10→02:44)
[2021-07-21] MEDS ORDERED: Orphenadrine 100 MG Tab.ER PO STA (02:44)
--- NOTE | 2021-07-21 07:36 | CR ---
Chest: Frontal view of the chest was obtained. Comparison: Prior chest x-ray of 05/04/21. Heart size and mediastinum are within normal limits for portable technique. Hiatal hernia is noted which is moderate in size. Lungs are clear with no acute parenchymal change. No acute osseous abnormality is appreciated. Impression: 1. Moderate sized hiatal hernia. 2. Nothing acute is otherwise seen on frontal chest x-ray. Diagnostic code #2
--- NOTE | 2021-07-21 09:03 | CT ---
CT lumbar spine Technique: Multiple axial sections were obtained from above the T11-12 vertebral body inferiorly through the L5-S1 disc. Reconstructed coronal and sagittal images were obtained. Comparison: No prior lumbar spine imaging is available. Details are somewhat diminished secondary to patient body habitus. Findings: Vertebral body heights are fairly well preserved. Mild disc space narrowing is seen at L5-S1 most prominent posteriorly. Vacuum disc phenomena is noted at L5-S1. Scattered anterior endplate osteophytes are seen most prominent at L3-4, L4-5 and L5-S1. There is minimal lucency within the transverse process of L2. Findings are felt compatible with probable nondisplaced fractures. Please correlate if patient is symptomatic to this area. No additional fracture is noted. No abnormal subluxation is seen. Mild degenerative change is seen within the sacroiliac joints. Slight circumferential disc bulge is noted at L3-4. Other findings: Previous cholecystectomy is noted. Small nonobstructing calculus is noted within the right kidney measuring 5 mm. Atherosclerotic calcification is seen within the aortoiliac system. Impression: 1. Fractures within the L2 transverse process, please correlate if patient is symptomatic to this area. 2. Mild degenerative change as noted above. No other acute abnormality is seen. Diagnostic code #3 I agree with preliminary report from [facility], finalized on 07/21/21, 1:11 AM CDT, code 1
== END 2021-07-21 03:55 | disposition home or self-care (01) ==
LOC: JD.ED 20:44
DX: S32.029A Unspecified fracture of second lumbar vertebra, initial encounter for closed fracture (principal); R07.89 Other chest pain; I25.10 Atherosclerotic heart disease of native coronary artery without angina pectoris; K21.9 Gastro-esophageal reflux disease without esophagitis; I12.9 Hypertensive chronic kidney disease with stage 1 through stage 4 chronic kidney disease, or unspecified chronic kidney disease; E11.22 Type 2 diabetes mellitus with diabetic chronic kidney disease; N18.9 Chronic kidney disease, unspecified; M19.90 Unspecified osteoarthritis, unspecified site; E66.9 Obesity, unspecified; Z87.891 Personal history of nicotine dependence; Z88.1 Allergy status to other antibiotic agents; Z88.5 Allergy status to narcotic agent; Z88.0 Allergy status to penicillin; Z88.8 Allergy status to other drugs, medicaments and biological substances; Z91.041 Radiographic dye allergy status; Z79.02 Long term (current) use of antithrombotics/antiplatelets; Z79.899 Other long term (current) drug therapy; Z20.822 Contact with and (suspected) exposure to COVID-19; W01.0XXA Fall on same level from slipping, tripping and stumbling without subsequent striking against object, initial encounter; Y92.009 Unspecified place in unspecified non-institutional (private) residence as the place of occurrence of the external cause
CPT/HCPCS: 36415; 71045; 72131; 80053; 84484; 85007; 85027; 93005; 96374; 96375; 96376; 99285; A9270; J1170; J2405; J7030; U0002

== ENCOUNTER 2021-08-16 15:07 | Emergency (ER) | payer MEDICARE, MEDICAID ==
[2021-08-16] MEDS ORDERED: Sodium Chloride 0.9% 10 ML Syringe FLUSH PRN (15:27)
[2021-08-16] MEDS ORDERED: Nitroglycerin 0.4 MG Tab.SL SL ONE (15:35)
[2021-08-16] MEDS ORDERED: Aspirin 81 MG Tab.Chew PO ONE (15:36)
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
[2021-08-16] MEDS ORDERED: fentaNYL 100 MCG/2 ML SDV IVPUSH ONE (16:22)
--- NOTE | 2021-08-17 05:53 | CR ---
Chest: Portable view of the chest was obtained. Comparison: Prior chest x-ray of 07/20/21. Heart size and mediastinum are within normal limits for portable technique. Hiatal hernia is noted. Lungs are clear with no acute parenchymal change. Bony structures show nothing acute. Old healed right-sided rib fractures are noted. Impression: 1. Hiatal hernia. 2. Nothing acute is seen on portable chest x-ray. Diagnostic code #2
== END 2021-08-16 18:57 | disposition home or self-care (01) ==
LOC: JD.ED 15:07
DX: R07.2 Precordial pain (principal); I25.10 Atherosclerotic heart disease of native coronary artery without angina pectoris; I10 Essential (primary) hypertension; E78.00 Pure hypercholesterolemia, unspecified; J44.9 Chronic obstructive pulmonary disease, unspecified; E11.9 Type 2 diabetes mellitus without complications; E66.9 Obesity, unspecified; Z68.30 Body mass index [BMI] 30.0-30.9, adult; Z86.73 Personal history of transient ischemic attack (TIA), and cerebral infarction without residual deficits; Z88.1 Allergy status to other antibiotic agents; Z88.0 Allergy status to penicillin; Z88.5 Allergy status to narcotic agent; Z91.041 Radiographic dye allergy status; Z88.2 Allergy status to sulfonamides; Z88.8 Allergy status to other drugs, medicaments and biological substances; Z79.02 Long term (current) use of antithrombotics/antiplatelets; Z79.899 Other long term (current) drug therapy; Z87.891 Personal history of nicotine dependence
CPT/HCPCS: 36415; 71045; 80053; 83735; 83880; 84484; 85025; 85379; 85610; 85730; 86140; 93005; 96374; 99285; A9270; J3010

== ENCOUNTER 2021-09-01 10:13 | Emergency (ER) | payer MEDICARE, MEDICAID ==
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
[2021-09-01] MEDS ORDERED: Lactated Ringers 1,000 ML IV SCH (11:00)
[2021-09-01] MEDS ORDERED: Ondansetron 4 MG/2 ML SDV IVPUSH ONE (11:51)
[2021-09-01] MEDS ORDERED: Ondansetron 4 MG/2 ML SDV ONE (11:53)
[2021-09-01] MEDS ORDERED: Diatrizoate Meglumine/Diatrizoate Sodium 37% 120 ML Bottle PO ONE (13:44)
[2021-09-01] MEDS ORDERED: Iopamidol 612 MG/ML 100 ML Bottle IVPUSH ONE (13:44)
[2021-09-01] MEDS ORDERED: Iopamidol 612 MG/ML 50 ML SDV IVPUSH ONE (13:45)
[2021-09-01] MEDS ORDERED: Famotidine 20 MG/2 ML SDV IVPUSH ONE (13:48)
[2021-09-01] MEDS ORDERED: methylPREDNISolone Sodium Succinate 125 MG/2 ML SDV IVPUSH ONE (13:48)
[2021-09-01] MEDS ORDERED: diphenhydrAMINE 50 MG/ML SDV IVPUSH ONE (13:49)
--- NOTE | 2021-09-02 12:23 | CT ---
CT abdomen and pelvis Technique: Multiple axial sections were obtained from above the dome of the diaphragm inferiorly through the pubic symphysis. Intravenous and oral contrast were utilized. Delayed images were obtained through the bladder. Comparison: No prior abdominal imaging is available. Findings: Nodular densities are seen within both sides of the chest. Findings raise the possibility of mild pneumonia possibly on a viral basis. Moderate hiatal hernia is seen. Diminished density is noted within the liver compatible with fatty infiltration. Spleen is within normal limits. Adrenal glands on the left side show a nodule measuring 1.2 cm in size. This is nonspecific regarding etiology. Pancreas is within normal limits. Surgical clip is seen from prior cholecystectomy. Kidneys show symmetric contrast enhancement. Scattered cysts are seen within both kidneys. Largest cyst measures 2.9 cm. Nonobstructing calculus is noted within the right kidney measuring 4 mm. Abdominal aorta shows atherosclerotic calcification. No aneurysm is seen. Atherosclerotic calcification continues into the iliac vessels. Appendix is not visualized. Prior surgery is noted within the sigmoid colon. Soft tissue area is seen within the previous surgery and difficult to exclude a sigmoid mass measuring around 3.5 cm. No pelvic adenopathy or mass is seen. Delayed images show contrast within the distal ureters and the bladder. Bone window settings were reviewed. Mild degenerative change is scattered within the spine. Impression: 1. Increased density within both lung bases appearing somewhat nodular. Difficult to exclude viral pneumonia. 2. Small mass within the left adrenal gland measuring 1.2 cm. This is nonspecific for metastatic or benign lesion. 3. Masslike lesion within the sigmoid colon in area of previous surgery. Difficult to exclude neoplasm. Please consider biopsy to further evaluate. 4. Other findings as described above which are felt to be chronic. Diagnostic code #9 I agree with preliminary report from [facility], finalized on 09/01/21, 5:26 PM CDT, code 1
== END 2021-09-01 16:49 | disposition home or self-care (01) ==
LOC: JD.ED 10:13
DX: R10.33 Periumbilical pain (principal); I25.10 Atherosclerotic heart disease of native coronary artery without angina pectoris; E78.00 Pure hypercholesterolemia, unspecified; I10 Essential (primary) hypertension; J44.9 Chronic obstructive pulmonary disease, unspecified; E11.9 Type 2 diabetes mellitus without complications; E66.9 Obesity, unspecified; Z68.41 Body mass index [BMI] 40.0-44.9, adult; Z86.73 Personal history of transient ischemic attack (TIA), and cerebral infarction without residual deficits; Z88.1 Allergy status to other antibiotic agents; Z88.0 Allergy status to penicillin; Z88.5 Allergy status to narcotic agent; Z91.041 Radiographic dye allergy status; Z88.2 Allergy status to sulfonamides; Z88.8 Allergy status to other drugs, medicaments and biological substances; Z79.02 Long term (current) use of antithrombotics/antiplatelets; Z79.899 Other long term (current) drug therapy; Z86.16 Personal history of COVID-19
CPT/HCPCS: 36415; 74177; 80053; 82728; 83615; 83690; 85025; 86140; 96374; 96375; 99284; J1200; J2405; J2930; J3490; J7120; Q9963; Q9967

== ENCOUNTER 2021-09-10 14:35 | Emergency (ER) | payer MEDICARE, MEDICAID ==
[2021-09-10] MEDS: Sodium Chloride 0.9% 10 ML Syringe FLUSH PRN ×2 (14:55→16:08)
[2021-09-10] MEDS ORDERED: Sodium Chloride 0.9% 10 ML Syringe FLUSH ONE (15:14)
[2021-09-10] MEDS ORDERED: Iopamidol 755 Mg/ML 100 ML Bottle IVPUSH ONE (15:14)
[2021-09-10] MEDS ORDERED: Sodium Chloride 0.9% 100 ML IV SCH (15:15)
[2021-09-10] MEDS ORDERED: Ondansetron 4 MG/2 ML SDV IVPUSH ONE (15:16)
--- NOTE | 2021-09-10 15:28 | CR ---
Chest: Portable view of the chest was obtained. Comparison: Prior chest x-ray of 08/31/21. Diffuse increased density is seen on both sides of the chest. Heart size appears normal. Moderately large hiatal hernia is seen. Upper mediastinum is normal. No acute bony abnormality is appreciated. Impression: 1. Diffuse increased density on both sides of the chest. Please rule out COVID pneumonia. 2. Stable hiatal hernia. Diagnostic code #3
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
[2021-09-10] MEDS ORDERED: methylPREDNISolone Sodium Succinate 125 MG/2 ML SDV IVPUSH ONE (15:42)
[2021-09-10] MEDS ORDERED: diphenhydrAMINE 50 MG/ML SDV IVPUSH ONE (15:42)
[2021-09-10] MEDS ORDERED: HYDROmorphone 1 MG/ML Syringe IVPUSH ONE ×2 (15:57→16:13)
--- NOTE | 2021-09-10 16:29 | CT ---
CT chest Technique: Multiple axial sections were obtained from above the lung apices inferiorly through the lung bases. Intravenous contrast was utilized. Study has been performed as a pulmonary angiogram protocol. Comparison: No prior chest CT study is available, prior chest x-ray performed earlier on the same day (2:58 PM). Findings: Pulmonary arteries are well-opacified. No filling defects are seen to indicate pulmonary embolism. Thoracic aorta shows slight atherosclerotic calcification. Ascending aorta is slightly aneurysmal at 3.8 cm. Descending aorta measures 2.8 cm. No mediastinal adenopathy is seen. No pericardial thickening is seen. Moderate sized hiatal hernia is noted. Other visualized portions of the upper abdomen show no discrete abnormality. Lung window settings were reviewed. Multiple small patchy areas of increased density are seen throughout both sides of the chest. Bone window settings were reviewed. No acute osseous finding is appreciated. Impression: 1. No findings of pulmonary embolism. 2. Ascending aorta mildly prominent at 3.8 cm. Descending aorta is 2.8 cm. 3. Findings within both lungs compatible with COVID pneumonia. Diagnostic code #3
== END 2021-09-10 17:35 | disposition home or self-care (01) ==
LOC: JD.ED 14:35
DX: U07.1 COVID-19 (principal); J12.82 Pneumonia due to coronavirus disease 2019; R00.2 Palpitations; I71.2 Thoracic aortic aneurysm, without rupture; I25.10 Atherosclerotic heart disease of native coronary artery without angina pectoris; E78.00 Pure hypercholesterolemia, unspecified; I10 Essential (primary) hypertension; E11.9 Type 2 diabetes mellitus without complications; N40.0 Benign prostatic hyperplasia without lower urinary tract symptoms; E66.9 Obesity, unspecified; Z86.73 Personal history of transient ischemic attack (TIA), and cerebral infarction without residual deficits; Z95.5 Presence of coronary angioplasty implant and graft; Z86.16 Personal history of COVID-19; Z88.0 Allergy status to penicillin; Z88.1 Allergy status to other antibiotic agents; Z91.041 Radiographic dye allergy status; Z88.5 Allergy status to narcotic agent; Z88.8 Allergy status to other drugs, medicaments and biological substances; Z79.02 Long term (current) use of antithrombotics/antiplatelets; Z79.899 Other long term (current) drug therapy; Z68.41 Body mass index [BMI] 40.0-44.9, adult
CPT/HCPCS: 36415; 71045; 71275; 80053; 83735; 84484; 85025; 85379; 85610; 93005; 96374; 96375; 99285; J1170; J1200; J2405; J2930; Q9967

== ENCOUNTER 2021-09-24 17:24 | Emergency (ER) | payer MEDICARE, MEDICAID ==
[2021-09-24] MEDS ORDERED: Sodium Chloride 0.9% 10 ML Syringe FLUSH PRN (20:54)
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
[2021-09-24] MEDS ORDERED: Doxycycline 100 MG Cap PO ONE (23:40)
[2021-09-24] MEDS ORDERED: Acetaminophen 325 MG Tab PO ONE (23:43)
[2021-09-25 01:40] LABS: CORONAVIRUS COVID-19 NAA POSITIVE (NEGATIVE)
--- NOTE | 2021-09-25 12:04 | CR ---
Chest: Portable view of the chest was obtained. Comparison: Prior chest x-ray of 07/20/20. Heart size and mediastinum are within normal limits for portable technique. Old healed right-sided rib fracture is noted. Most recent chest x-ray shows patchy increased density within both lungs which has almost completely resolved on current chest x-ray. No acute parenchymal abnormality is otherwise seen. Moderately large hiatal hernia is noted. Impression: 1. Significantly improved chest from prior x-ray. No acute lung abnormality is seen. 2. Hiatal hernia is noted. Diagnostic code #2
--- NOTE | 2021-09-25 12:05 | CR ---
Right foot: 4 views of the right foot were obtained. Comparison: Prior right foot study of 06/05/21. Minimal plantar spur is noted. Joint spaces are fairly well preserved. No discrete fracture, dislocation or other bony abnormality is appreciated. Impression: 1. Nothing acute is seen on right foot study. Diagnostic code #2
== END 2021-09-25 00:33 | disposition home or self-care (01) ==
LOC: JD.ED 17:24
DX: J18.9 Pneumonia, unspecified organism (principal); S99.921A Unspecified injury of right foot, initial encounter; J44.9 Chronic obstructive pulmonary disease, unspecified; K21.9 Gastro-esophageal reflux disease without esophagitis; E11.9 Type 2 diabetes mellitus without complications; E66.9 Obesity, unspecified; I10 Essential (primary) hypertension; E78.00 Pure hypercholesterolemia, unspecified; Z88.8 Allergy status to other drugs, medicaments and biological substances; Z88.0 Allergy status to penicillin; Z88.5 Allergy status to narcotic agent; Z88.1 Allergy status to other antibiotic agents; Z86.16 Personal history of COVID-19; Z68.35 Body mass index [BMI] 35.0-35.9, adult; Z79.899 Other long term (current) drug therapy
CPT/HCPCS: 0241U; 36415; 71045; 73630; 80053; 83735; 85025; 99283; A9270

== ENCOUNTER 2021-10-05 11:52 | Emergency (ER) | payer MEDICARE, MEDICAID ==
[2021-10-05] MEDS ORDERED: Ondansetron 4 MG/2 ML SDV IVPUSH ONE (13:02)
[2021-10-05] MEDS ORDERED: HYDROmorphone 1 MG/ML Syringe IVPUSH STA (13:02)
[2021-10-05] MEDS ORDERED: Sodium Chloride 0.9% 10 ML Syringe FLUSH PRN ×2 (13:02→13:19)
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
[2021-10-05] MEDS ORDERED: diphenhydrAMINE 50 MG/ML SDV IVPUSH ONE (13:11)
[2021-10-05] MEDS ORDERED: methylPREDNISolone Sodium Succinate 125 MG/2 ML SDV IVPUSH ONE (13:11)
[2021-10-05] MEDS ORDERED: Sodium Chloride 0.9% 1,000 ML IV SCH (13:15)
[2021-10-05] MEDS ORDERED: Iopamidol 755 MG/ML 50 ML Bottle IVPUSH ONE (13:19)
[2021-10-05] MEDS ORDERED: Iopamidol 755 Mg/ML 100 ML Bottle IVPUSH ONE (13:19)
[2021-10-05 14:06] LABS: CORONAVIRUS COVID-19 NAA POSITIVE (NEGATIVE)
[2021-10-05] MEDS ORDERED: HYDROmorphone 1 MG/ML Syringe IVPUSH ONE (14:16)
--- NOTE | 2021-10-05 16:38 | CT ---
EXAM: CT ABDOMEN PELVIS WITH CONTRAST LOCATION: [facility] [place] DATE/TIME: 10/05/2021 1:52 PM INDICATION: Diarrhea burning abd pain history of mass and diverticulitis pt stated he had colon resection for diverticulitis in the past COMPARISON: 09/01/21 TECHNIQUE: CT scan of the abdomen and pelvis was performed following injection of IV contrast. Multiplanar reformats were obtained. Dose reduction techniques were used. CONTRAST: ISOVUE 300 125 FINDINGS: LOWER CHEST: Groundglass opacities at the lung bases have decreased from the comparison study. The left hemidiaphragm is mildly elevated. There is a hiatal hernia. HEPATOBILIARY: Fatty change of the liver is suspected. Status post cholecystectomy. PANCREAS: Normal. SPLEEN: Normal. ADRENAL GLANDS: A 13 mm left adrenal nodule has not changed. KIDNEYS/BLADDER: A simple right renal cyst has not changed. There is an indeterminate 2.4 cm lesion at the anterior lower pole of the left kidney (series 2 image 44). BOWEL: Suture line in the sigmoid colon. Low-attenuation adjacent to the suture line measuring approximately 3.6 x 2.5 x 3.2 cm has not changed. LYMPH NODES: Multiple nonenlarged mesenteric and retroperitoneal lymph nodes are present. VASCULATURE: Unremarkable. PELVIC ORGANS: Normal. MUSCULOSKELETAL: Normal. IMPRESSION: 1. Suture line in the sigmoid colon. No bowel obstruction. Low-attenuation at the suture line has not changed from the comparison study. This could be a fluid collection or mass. Recommend further evaluation, perhaps with pelvic MRI. 2. Pulmonary opacities are slightly less conspicuous. Resolving atypical/viral infection is suspected. 3. A left renal lesion is incompletely assessed. This could be better assessed with renal mass protocol MRI or CT. Ultrasound may be helpful. 4. Fatty change of the liver. 5. Unchanged left adrenal nodule. This is probably benign. Consider twelve-month follow-up adrenal gland CT if prior imaging is not available. REFERENCE: Management of Incidental Adrenal Masses: A White Paper of the ACR Incidental Findings Committee. J Am Cm Radiol 2017;14:[id number]. ? 1 cm and < 4 cm: No prior imaging and no history of cancer: 1-2 cm: probably benign. Consider 12-month CT adrenal follow-up. SIGNED BY: Moise Gaytan MD 10/05/2021 3:32 PM RORO
[2021-10-05] MEDS ORDERED: Menthol/Zinc Oxide Ointment 3.5 GM Tube TOP ONE (17:08)
== END 2021-10-05 17:40 | disposition home or self-care (01) ==
LOC: JD.ED 11:52
DX: U07.1 COVID-19 (principal); R10.84 Generalized abdominal pain; R19.7 Diarrhea, unspecified; J44.9 Chronic obstructive pulmonary disease, unspecified; I25.10 Atherosclerotic heart disease of native coronary artery without angina pectoris; E78.00 Pure hypercholesterolemia, unspecified; I12.9 Hypertensive chronic kidney disease with stage 1 through stage 4 chronic kidney disease, or unspecified chronic kidney disease; E11.22 Type 2 diabetes mellitus with diabetic chronic kidney disease; N18.9 Chronic kidney disease, unspecified; N40.0 Benign prostatic hyperplasia without lower urinary tract symptoms; E66.9 Obesity, unspecified; Z68.30 Body mass index [BMI] 30.0-30.9, adult; Z87.891 Personal history of nicotine dependence; Z88.1 Allergy status to other antibiotic agents; Z88.5 Allergy status to narcotic agent; Z88.8 Allergy status to other drugs, medicaments and biological substances; Z86.16 Personal history of COVID-19; Z91.041 Radiographic dye allergy status; Z88.2 Allergy status to sulfonamides; Z79.899 Other long term (current) drug therapy
CPT/HCPCS: 0240U; 36415; 74177; 80053; 81001; 83630; 83690; 85025; 86140; 87493; 96374; 96375; 96376; 99284; J1170; J1200; J2405; J2930; J7030; Q9967

== ENCOUNTER 2021-10-10 14:29 | Emergency (ER) | payer MEDICARE, MEDICAID ==
[2021-10-10] MEDS ORDERED: Lactated Ringers 1,000 ML IV ONE ×2 (15:08→17:40)
[2021-10-10] MEDS ORDERED: Morphine 4 MG/ML Syringe IVPUSH ONE (15:59)
[2021-10-10] MEDS ORDERED: diphenhydrAMINE 50 MG/ML SDV IVPUSH ONE ×2 (15:59→22:28)
[2021-10-10] MEDS ORDERED: HYDROmorphone 1 MG/ML Syringe IVPUSH ONE ×3 (16:31→21:26)
[2021-10-10] MEDS ORDERED: Ondansetron 4 MG/2 ML SDV IVPUSH ONE (16:44)
[2021-10-10] MEDS ORDERED: metroNIDAZOLE/Normal Saline 500 MG in Premix Bag 1 BAG IV ONE (16:56)
[2021-10-10] MEDS ORDERED: Levofloxacin/Dextrose 5%-Water 750 MG in Premix Bag 1 BAG IV ONE (16:56)
[2021-10-10] MEDS ORDERED: methylPREDNISolone Sodium Succinate 125 MG/2 ML SDV IVPUSH ONE (22:28)
[2021-10-11] MEDS ORDERED: HYDROmorphone 1 MG/ML Syringe IVPUSH ONE (01:57)
== END 2021-10-11 04:21 | disposition home or self-care (01) ==
LOC: JD.ED 14:29
DX: R93.5 Abnormal findings on diagnostic imaging of other abdominal regions, including retroperitoneum (principal); I25.10 Atherosclerotic heart disease of native coronary artery without angina pectoris; E78.00 Pure hypercholesterolemia, unspecified; I10 Essential (primary) hypertension; I25.2 Old myocardial infarction; J44.9 Chronic obstructive pulmonary disease, unspecified; K21.9 Gastro-esophageal reflux disease without esophagitis; E11.9 Type 2 diabetes mellitus without complications; E66.9 Obesity, unspecified; Z86.73 Personal history of transient ischemic attack (TIA), and cerebral infarction without residual deficits; Z88.0 Allergy status to penicillin; Z88.5 Allergy status to narcotic agent; Z88.1 Allergy status to other antibiotic agents; Z91.041 Radiographic dye allergy status; Z88.2 Allergy status to sulfonamides; Z88.8 Allergy status to other drugs, medicaments and biological substances; Z79.02 Long term (current) use of antithrombotics/antiplatelets; Z79.899 Other long term (current) drug therapy; Z68.38 Body mass index [BMI] 38.0-38.9, adult
CPT/HCPCS: 36415; 74177; 76705; 83605; 85007; 85027; 87040; 96365; 96366; 96367; 96375; 96376; 99284; J1170; J1200; J1956; J2405; J2930; J3490; J7120; U0002

== ENCOUNTER 2021-10-23 16:25 | Emergency (ER) | payer MEDICARE, MEDICAID ==
[2021-10-23] MEDS ORDERED: Sodium Chloride 0.9% 10 ML Syringe FLUSH PRN ×2 (16:57→16:58)
[2021-10-23] MEDS ORDERED: Aspirin 81 MG Tab.Chew PO ONE (16:58)
[2021-10-23] MEDS: Nitroglycerin 0.4 MG Tab.SL SL PRN ×2 (20:42→20:49)
[2021-10-23] MEDS ORDERED: HYDROmorphone 1 MG/ML Syringe IVPUSH ONE (21:08)
[2021-10-23] MEDS ORDERED: oxyCODONE ER 20 MG TAB.ER PO ONE (21:08)
[2021-10-23] MEDS ORDERED: Isosorbide Mononitrate 30 MG Tab.ER PO ONE (23:54)
== END 2021-10-24 00:15 | disposition home or self-care (01) ==
LOC: JD.ED 16:25
DX: R07.9 Chest pain, unspecified (principal); I25.10 Atherosclerotic heart disease of native coronary artery without angina pectoris; E78.00 Pure hypercholesterolemia, unspecified; I10 Essential (primary) hypertension; I25.2 Old myocardial infarction; J44.9 Chronic obstructive pulmonary disease, unspecified; K21.9 Gastro-esophageal reflux disease without esophagitis; Z88.0 Allergy status to penicillin; Z88.1 Allergy status to other antibiotic agents; Z88.5 Allergy status to narcotic agent; Z88.8 Allergy status to other drugs, medicaments and biological substances; Z91.041 Radiographic dye allergy status; Z88.2 Allergy status to sulfonamides; Z79.02 Long term (current) use of antithrombotics/antiplatelets; Z79.899 Other long term (current) drug therapy; Z86.73 Personal history of transient ischemic attack (TIA), and cerebral infarction without residual deficits
CPT/HCPCS: 36415; 71045; 80053; 83735; 83880; 84484; 85025; 85379; 85610; 93005; 96374; 99285; A9270; J1170

== ENCOUNTER 2021-11-13 09:29 | Day surgery (SDC) | payer MEDICARE, MEDICAID ==
[~2021-11-13 09:29] MED LIST: Lactated Ringers 1,000 ML IV SCH; Lidocaine 1%/Sod Bicarbonate in NS 8.4% 1 ML Syringe IDERM PRN; Sodium Chloride 0.9% 10 ML Syringe FLUSH PRN; Sodium Chloride 0.9% 10 ML Syringe FLUSH SCH
[2021-11-13] MEDS ORDERED: Ketamine 500 mg/10 ML MDV ONE (10:34)
[2021-11-13] MEDS ORDERED: fentaNYL 100 MCG/2 ML SDV ONE (10:34)
[2021-11-13] MEDS ORDERED: Midazolam 1 MG/ML 2 ML SDV ONE (10:34)
[2021-11-13] MEDS ORDERED: Ondansetron 4 MG/2 ML SDV ONE (10:57)
[2021-11-13] MEDS ORDERED: Lidocaine 1% 6 ML ONE (10:57)
[2021-11-13] MEDS ORDERED: Propofol 200 MG/20 ML SDV ONE ×2 (11:00→11:31)
[2021-11-13] MEDS ORDERED: Etomidate 2 MG/ML 20 ML SDV IVPUSH ONE (11:00)
[2021-11-13] MEDS ORDERED: Lidocaine 2% Jelly 5 ML Tube ONE (11:03)
[2021-11-13] MEDS ORDERED: Metoprolol Tartrate 5 MG/5 ML SDV ONE (11:18)
[2021-11-13] MEDS ORDERED: Benzocaine 20% Topical Spray UD ONE (12:00)
== END 2021-11-13 13:40 | disposition home or self-care (01) ==
LOC: JD.SDS 09:29
PROVIDERS: ATTEND Surgery
DX: Z12.11 Encounter for screening for malignant neoplasm of colon (principal); D12.2 Benign neoplasm of ascending colon; D12.3 Benign neoplasm of transverse colon; D12.5 Benign neoplasm of sigmoid colon; K62.1 Rectal polyp; K44.9 Diaphragmatic hernia without obstruction or gangrene; K20.90 Esophagitis, unspecified without bleeding; F41.9 Anxiety disorder, unspecified; N40.0 Benign prostatic hyperplasia without lower urinary tract symptoms; I25.10 Atherosclerotic heart disease of native coronary artery without angina pectoris; J44.9 Chronic obstructive pulmonary disease, unspecified; I10 Essential (primary) hypertension; E66.9 Obesity, unspecified; M10.9 Gout, unspecified; E55.9 Vitamin D deficiency, unspecified; Z88.8 Allergy status to other drugs, medicaments and biological substances; Z88.0 Allergy status to penicillin; Z88.5 Allergy status to narcotic agent; Z79.899 Other long term (current) drug therapy; Z98.0 Intestinal bypass and anastomosis status; Z79.82 Long term (current) use of aspirin; Z68.41 Body mass index [BMI] 40.0-44.9, adult
CPT/HCPCS: 43239; 45380; A9270; J2250; J2370; J2405; J2704; J3010; J3490; J7120; 00813

== ENCOUNTER 2021-12-15 17:33 | Emergency (ER) | payer BC, MEDICAID ==
[2021-12-15] MEDS ORDERED: Sodium Chloride 0.9% 10 ML Syringe FLUSH PRN (17:40)
[2021-12-15] MEDS ORDERED: Nitroglycerin 0.4 MG Tab.SL SL ONE ×2 (17:48→19:42)
[2021-12-15] MEDS ORDERED: Sodium Chloride 0.9% 1,000 ML IV SCH (19:45)
[2021-12-15] MEDS ORDERED: Acetaminophen 325 MG Tab PO ONE (20:17)
[2021-12-15] MEDS ORDERED: Morphine 2 MG/ML SYRINGE IVPUSH ONE (20:40)
[2021-12-15] MEDS ORDERED: fentaNYL 100 MCG/2 ML SDV IVPUSH ONE (20:46)
[2021-12-15] MEDS ORDERED: fentaNYL 100 MCG/2 ML SDV ONE (20:48)
== END 2021-12-15 22:40 | disposition home or self-care (01) ==
LOC: JD.ED 17:33
DX: R07.9 Chest pain, unspecified (principal); I25.10 Atherosclerotic heart disease of native coronary artery without angina pectoris; E78.00 Pure hypercholesterolemia, unspecified; I10 Essential (primary) hypertension; I25.2 Old myocardial infarction; J44.9 Chronic obstructive pulmonary disease, unspecified; E11.9 Type 2 diabetes mellitus without complications; E66.9 Obesity, unspecified; Z86.73 Personal history of transient ischemic attack (TIA), and cerebral infarction without residual deficits; Z88.0 Allergy status to penicillin; Z88.1 Allergy status to other antibiotic agents; Z88.5 Allergy status to narcotic agent; Z91.041 Radiographic dye allergy status; Z88.8 Allergy status to other drugs, medicaments and biological substances; Z79.02 Long term (current) use of antithrombotics/antiplatelets; Z79.899 Other long term (current) drug therapy; Z79.82 Long term (current) use of aspirin; Z87.891 Personal history of nicotine dependence; Z20.822 Contact with and (suspected) exposure to COVID-19; Z68.41 Body mass index [BMI] 40.0-44.9, adult
CPT/HCPCS: 36415; 71045; 80053; 83735; 84484; 85025; 85379; 85610; 87635; 93005; 94762; 96374; 99285; A9270; J3010; J7030; 83880; U0002

== ENCOUNTER 2022-01-16 15:59 | Emergency (ER) | payer MEDICARE, MEDICAID ==
[2022-01-16] MEDS ORDERED: Sodium Chloride 0.9% 10 ML Syringe FLUSH PRN (16:24)
[2022-01-16] MEDS ORDERED: diphenhydrAMINE 50 MG/ML SDV IVPUSH ONE (16:54)
[2022-01-16] MEDS ORDERED: HYDROmorphone 0.5 MG/0.5 ML Syringe IVPUSH ONE ×3 (16:54→19:10)
[2022-01-16] MEDS ORDERED: Ondansetron 4 MG/2 ML SDV IVPUSH ONE (16:54)
[2022-01-16] MEDS ORDERED: Sodium Chloride 0.9% 1,000 ML IV STA (16:54)
[2022-01-16] MEDS ORDERED: Ketorolac 30 MG/ML SDV IVPUSH ONE (18:01)
[2022-01-16] MEDS ORDERED: Valproate Sodium 500 MG in Sodium Chloride 0.9% 100 ML IV ONE (19:32)
[2022-01-16] MEDS ORDERED: Metoclopramide 10 MG/2 ML SDV IVPUSH ONE (20:06)
== END 2022-01-16 21:15 | disposition home or self-care (01) ==
LOC: JD.ED 15:59
DX: R51.9 Headache, unspecified (principal); I25.10 Atherosclerotic heart disease of native coronary artery without angina pectoris; E78.00 Pure hypercholesterolemia, unspecified; I12.9 Hypertensive chronic kidney disease with stage 1 through stage 4 chronic kidney disease, or unspecified chronic kidney disease; E11.22 Type 2 diabetes mellitus with diabetic chronic kidney disease; N18.9 Chronic kidney disease, unspecified; I25.2 Old myocardial infarction; N40.0 Benign prostatic hyperplasia without lower urinary tract symptoms; Z86.73 Personal history of transient ischemic attack (TIA), and cerebral infarction without residual deficits; Z79.02 Long term (current) use of antithrombotics/antiplatelets; Z79.899 Other long term (current) drug therapy; Z79.82 Long term (current) use of aspirin; Z91.041 Radiographic dye allergy status; Z88.5 Allergy status to narcotic agent; Z88.0 Allergy status to penicillin; Z88.1 Allergy status to other antibiotic agents
CPT/HCPCS: 36415; 70450; 80053; 83735; 85025; 86140; 96365; 96375; 96376; 99284; J1170; J1200; J1885; J2405; J2765; J3490; J7030

== ENCOUNTER 2022-02-04 09:42 | Emergency (ER) | payer MEDICARE, MEDICAID ==
[2022-02-04] MEDS ORDERED: Aspirin 81 MG Tab.Chew PO ONE (10:11)
[2022-02-04] MEDS ORDERED: Albuterol/Ipratropium 3.0-0.5 MG/3 ML Neb Soln NEB ONE ×3 (10:11→14:40)
[2022-02-04] MEDS ORDERED: methylPREDNISolone Sodium Succinate 125 MG/2 ML SDV IVPUSH ONE (10:11)
[2022-02-04] MEDS: Nitroglycerin 0.4 MG Tab.SL SL PRN ×3 (10:38→11:30)
[2022-02-04] MEDS ORDERED: Acetaminophen 325 MG Tab PO ONE (12:50)
== END 2022-02-04 16:17 | disposition home or self-care (01) ==
LOC: JD.ED 09:42
DX: J44.1 Chronic obstructive pulmonary disease with (acute) exacerbation (principal); I25.10 Atherosclerotic heart disease of native coronary artery without angina pectoris; E78.00 Pure hypercholesterolemia, unspecified; I25.2 Old myocardial infarction; I10 Essential (primary) hypertension; K21.9 Gastro-esophageal reflux disease without esophagitis; E11.9 Type 2 diabetes mellitus without complications; E66.9 Obesity, unspecified; Z68.41 Body mass index [BMI] 40.0-44.9, adult; Z86.16 Personal history of COVID-19; Z86.73 Personal history of transient ischemic attack (TIA), and cerebral infarction without residual deficits; Z90.49 Acquired absence of other specified parts of digestive tract; Z88.1 Allergy status to other antibiotic agents; Z88.0 Allergy status to penicillin; Z88.5 Allergy status to narcotic agent; Z88.6 Allergy status to analgesic agent; Z88.8 Allergy status to other drugs, medicaments and biological substances; Z91.041 Radiographic dye allergy status; Z79.899 Other long term (current) drug therapy; Z79.82 Long term (current) use of aspirin; Z79.4 Long term (current) use of insulin; Z20.822 Contact with and (suspected) exposure to COVID-19
CPT/HCPCS: 36415; 71045; 80053; 82947; 83880; 84484; 85025; 85610; 93005; 94640; 96374; 99285; A9270; J2930; U0002; J7620-GY

== ENCOUNTER 2022-03-12 22:36 | Emergency (ER) | payer MEDICARE, MEDICAID ==
[2022-03-12] MEDS ORDERED: Ondansetron 4 MG/2 ML SDV IVPUSH ONE (23:05)
[2022-03-12] MEDS ORDERED: HYDROmorphone 1 MG/ML Syringe IVPUSH ONE (23:05)
[2022-03-12] MEDS ORDERED: Sodium Chloride 0.9% 1,000 ML IV SCH (23:15)
[2022-03-12] MEDS ORDERED: Ondansetron 4 MG/2 ML SDV ONE (23:36)
[2022-03-12] MEDS ORDERED: Sodium Chloride 0.9% 1,000 ML ONE (23:37)
[2022-03-12] MEDS ORDERED: HYDROmorphone 1 MG/ML Syringe ONE (23:37)
[2022-03-13] MEDS ORDERED: Iopamidol 612 MG/ML 50 ML SDV IVPUSH ONE (00:05)
[2022-03-13] MEDS ORDERED: Iopamidol 612 MG/ML 100 ML Bottle IVPUSH ONE (00:05)
[2022-03-13] MEDS: Sodium Chloride 0.9% 10 ML Syringe FLUSH PRN ×2 (00:20→01:00)
[2022-03-13] MEDS ORDERED: HYDROmorphone 1 MG/ML Syringe IVPUSH ONE ×2 (00:22→01:26)
[2022-03-13] MEDS ORDERED: diphenhydrAMINE 50 MG/ML SDV IVPUSH ONE (00:43)
[2022-03-13] MEDS ORDERED: Ondansetron 4 MG/2 ML SDV IVPUSH ONE (01:10)
== END 2022-03-13 02:42 | disposition home or self-care (01) ==
LOC: JD.ED 22:36
DX: R10.12 Left upper quadrant pain (principal); I25.10 Atherosclerotic heart disease of native coronary artery without angina pectoris; E78.00 Pure hypercholesterolemia, unspecified; I10 Essential (primary) hypertension; E11.9 Type 2 diabetes mellitus without complications; N40.0 Benign prostatic hyperplasia without lower urinary tract symptoms; K21.9 Gastro-esophageal reflux disease without esophagitis; J44.9 Chronic obstructive pulmonary disease, unspecified; F17.210 Nicotine dependence, cigarettes, uncomplicated; E66.9 Obesity, unspecified; Z68.41 Body mass index [BMI] 40.0-44.9, adult; Z28.310 Unvaccinated for COVID-19; Z88.0 Allergy status to penicillin; Z88.1 Allergy status to other antibiotic agents; Z88.5 Allergy status to narcotic agent; Z91.041 Radiographic dye allergy status; Z88.8 Allergy status to other drugs, medicaments and biological substances; Z79.02 Long term (current) use of antithrombotics/antiplatelets; Z79.899 Other long term (current) drug therapy; Z79.4 Long term (current) use of insulin; Z79.82 Long term (current) use of aspirin; Z86.73 Personal history of transient ischemic attack (TIA), and cerebral infarction without residual deficits
CPT/HCPCS: 36415; 74177; 80053; 85007; 85027; 96374; 96375; 96376; 99284; J1170; J1200; J2405; J3490; J7030; Q9967

== ENCOUNTER 2022-03-21 15:27 | Emergency (ER) | payer MEDICARE, MEDICAID ==
[2022-03-21] MEDS ORDERED: Aspirin 81 MG Tab.Chew PO ONE (15:53)
[2022-03-21] MEDS ORDERED: Nitroglycerin/D5W 25 MG/250 ML BOTTLE IV SCH (16:00)
[2022-03-21] MEDS ORDERED: Sodium Chloride 0.9% 1,000 ML IV SCH (16:00)
[2022-03-21 16:49] LABS: ESTIMATED GFR 77 mL/min (>60)
[2022-03-21 16:56] LABS: HEMOGLOBIN A1C 8.6 %
[2022-03-21] MEDS ORDERED: HYDROmorphone 1 MG/ML Syringe IVPUSH ONE ×3 (17:04→19:51)
[2022-03-21] MEDS ORDERED: Metoclopramide 10 MG/2 ML SDV IVPUSH ONE (17:05)
[2022-03-21] MEDS ORDERED: LORazepam 2 MG/ML SDV IVPUSH ONE (19:51)
== END 2022-03-21 21:04 | disposition home or self-care (01) ==
LOC: JD.ED 15:27
DX: R07.89 Other chest pain (principal); K44.9 Diaphragmatic hernia without obstruction or gangrene; I25.10 Atherosclerotic heart disease of native coronary artery without angina pectoris; E78.00 Pure hypercholesterolemia, unspecified; I10 Essential (primary) hypertension; I25.2 Old myocardial infarction; J44.9 Chronic obstructive pulmonary disease, unspecified; K21.9 Gastro-esophageal reflux disease without esophagitis; E11.9 Type 2 diabetes mellitus without complications; E66.9 Obesity, unspecified; Z86.73 Personal history of transient ischemic attack (TIA), and cerebral infarction without residual deficits; Z88.1 Allergy status to other antibiotic agents; Z88.0 Allergy status to penicillin; Z91.041 Radiographic dye allergy status; Z88.5 Allergy status to narcotic agent; Z88.2 Allergy status to sulfonamides; Z88.8 Allergy status to other drugs, medicaments and biological substances; Z79.02 Long term (current) use of antithrombotics/antiplatelets; Z79.899 Other long term (current) drug therapy; Z79.82 Long term (current) use of aspirin; Z68.41 Body mass index [BMI] 40.0-44.9, adult
CPT/HCPCS: 36415; 71045; 80053; 81001; 82553; 83036; 83735; 83880; 84484; 85025; 85379; 85610; 85730; 86140; 93005; 96365; 96366; 96375; 96376; 99285; A9270; J1170; J2060; J2765; J3490; J7030; 93010; 99284

== ENCOUNTER 2022-04-02 15:57 | Emergency (ER) | payer MEDICARE, MEDICAID ==
[2022-04-02] MEDS ORDERED: Sodium Chloride 0.9% 10 ML Syringe FLUSH PRN (17:17)
[2022-04-02] MEDS ORDERED: Ondansetron 4 MG/2 ML SDV IVPUSH ONE (17:17)
[2022-04-02] MEDS ORDERED: Sodium Chloride 0.9% 1,000 ML IV SCH (17:30)
[2022-04-02] MEDS ORDERED: Iopamidol 612 MG/ML 100 ML Bottle IVPUSH ONE (18:22)
[2022-04-02] MEDS ORDERED: Iopamidol 612 MG/ML 50 ML SDV IVPUSH ONE (18:22)
[2022-04-02] MEDS ORDERED: Sodium Chloride 0.9% 10 ML Syringe FLUSH ONE (18:22)
[2022-04-02] MEDS ORDERED: diphenhydrAMINE 50 MG/ML SDV IVPUSH ONE (18:45)
[2022-04-02] MEDS ORDERED: fentaNYL 100 MCG/2 ML SDV IVPUSH ONE (19:31)
[2022-04-02] MEDS ORDERED: Ondansetron 4 MG/2 ML SDV ONE (19:39)
[2022-04-02] MEDS ORDERED: Alum Hydrox/Mag Hydrox/Simeth 30 ML, Lidocaine 2% 15 ML PO ONE ×2 (21:01)
[2022-04-02] MEDS ORDERED: Haloperidol Lactate 5 MG/ML SDV IVPUSH ONE (21:01)
[2022-04-02] MEDS ORDERED: Famotidine 20 MG/2 ML SDV IVPUSH ONE (21:01)
== END 2022-04-02 21:40 | disposition home or self-care (01) ==
LOC: JD.ED 15:57
DX: R10.84 Generalized abdominal pain (principal); I25.10 Atherosclerotic heart disease of native coronary artery without angina pectoris; E78.00 Pure hypercholesterolemia, unspecified; I10 Essential (primary) hypertension; I25.2 Old myocardial infarction; J44.9 Chronic obstructive pulmonary disease, unspecified; E11.9 Type 2 diabetes mellitus without complications; E66.9 Obesity, unspecified; Z68.41 Body mass index [BMI] 40.0-44.9, adult; Z86.73 Personal history of transient ischemic attack (TIA), and cerebral infarction without residual deficits; Z95.5 Presence of coronary angioplasty implant and graft; Z88.1 Allergy status to other antibiotic agents; Z88.0 Allergy status to penicillin; Z88.5 Allergy status to narcotic agent; Z91.041 Radiographic dye allergy status; Z79.02 Long term (current) use of antithrombotics/antiplatelets; Z79.899 Other long term (current) drug therapy; Z79.4 Long term (current) use of insulin; Z87.891 Personal history of nicotine dependence
CPT/HCPCS: 36415; 74177; 80053; 81001; 83690; 83735; 84484; 85025; 86140; 93005; 96374; 96375; 99284; A9270; J1200; J1630; J2405; J3010; J3490; Q9967; 93010

== ENCOUNTER 2022-04-16 05:33 | Emergency (ER) | payer MEDICARE, MEDICAID ==
[2022-04-16] MEDS ORDERED: Ondansetron 4 MG/2 ML SDV IVPUSH ONE (06:07)
[2022-04-16] MEDS ORDERED: HYDROmorphone 1 MG/ML Syringe IVPUSH STA (06:07)
[2022-04-16] MEDS ORDERED: Sodium Chloride 0.9% 1,000 ML IV SCH (06:15)
[2022-04-16] MEDS ORDERED: Sodium Chloride 0.9% 10 ML Syringe FLUSH PRN (07:59)
[2022-04-16] MEDS ORDERED: Iopamidol 612 MG/ML 100 ML Bottle IVPUSH ONE (07:59)
[2022-04-16] MEDS ORDERED: HYDROmorphone 1 MG/ML Syringe IVPUSH ONE (08:04)
[2022-04-16] MEDS ORDERED: diphenhydrAMINE 50 MG/ML SDV IVPUSH ONE (08:05)
[2022-04-16] MEDS ORDERED: methylPREDNISolone Sodium Succinate 125 MG/2 ML SDV IVPUSH ONE (08:05)
[2022-04-16] MEDS ORDERED: HYDROmorphone 0.5 MG/0.5 ML Syringe IVPUSH ONE (09:41)
== END 2022-04-16 11:54 | disposition home or self-care (01) ==
LOC: JD.ED 05:33
DX: R07.89 Other chest pain (principal); R10.13 Epigastric pain; I25.10 Atherosclerotic heart disease of native coronary artery without angina pectoris; E78.00 Pure hypercholesterolemia, unspecified; I10 Essential (primary) hypertension; K21.9 Gastro-esophageal reflux disease without esophagitis; E11.9 Type 2 diabetes mellitus without complications; E66.9 Obesity, unspecified; Z68.41 Body mass index [BMI] 40.0-44.9, adult; Z86.73 Personal history of transient ischemic attack (TIA), and cerebral infarction without residual deficits; Z28.310 Unvaccinated for COVID-19; Z88.0 Allergy status to penicillin; Z88.1 Allergy status to other antibiotic agents; Z88.5 Allergy status to narcotic agent; Z91.041 Radiographic dye allergy status; Z79.02 Long term (current) use of antithrombotics/antiplatelets; Z79.899 Other long term (current) drug therapy; Z79.4 Long term (current) use of insulin; Z87.891 Personal history of nicotine dependence
CPT/HCPCS: 36415; 71045; 74177; 80053; 83690; 83880; 84484; 85007; 85027; 85379; 93005; 96374; 96375; 96376; 99285; J1170; J1200; J2405; J2930; J3490; J7030; Q9967

== ENCOUNTER 2022-04-23 12:01 | Emergency (ER) | payer MEDICARE, MEDICAID ==
[2022-04-23] MEDS ORDERED: HYDROmorphone 1 MG/ML Syringe IVPUSH ONE ×2 (12:39→13:52)
[2022-04-23] MEDS ORDERED: Sodium Chloride 0.9% 10 ML Syringe FLUSH PRN (12:39)
[2022-04-23] MEDS ORDERED: Cyclobenzaprine 10 MG Tab PO ONE (12:40)
[2022-04-23] MEDS ORDERED: Ketorolac 30 MG/ML SDV IVPUSH ONE (12:40)
== END 2022-04-23 14:34 | disposition home or self-care (01) ==
LOC: JD.ED 12:01
DX: M51.16 Intervertebral disc disorders with radiculopathy, lumbar region (principal); E11.9 Type 2 diabetes mellitus without complications; M19.90 Unspecified osteoarthritis, unspecified site; J44.9 Chronic obstructive pulmonary disease, unspecified; K21.9 Gastro-esophageal reflux disease without esophagitis; Z86.16 Personal history of COVID-19; Z88.0 Allergy status to penicillin; Z88.1 Allergy status to other antibiotic agents; Z88.5 Allergy status to narcotic agent; Z91.041 Radiographic dye allergy status; Z91.018 Allergy to other foods; Z79.02 Long term (current) use of antithrombotics/antiplatelets; Z79.82 Long term (current) use of aspirin; Z79.899 Other long term (current) drug therapy; Z87.891 Personal history of nicotine dependence
CPT/HCPCS: 72131; 96374; 96375; 96376; 99283; A9270; J1170; J1885; J3490; 99284

== ENCOUNTER 2022-06-03 19:47 | Emergency (ER) | payer MEDICARE, MEDICAID ==
[2022-06-03] MEDS ORDERED: Sodium Chloride 0.9% 10 ML Syringe FLUSH PRN (20:00)
[2022-06-03 20:39] LABS: ESTIMATED GFR 86 mL/min (>60)
[2022-06-03] MEDS ORDERED: Acetaminophen 325 MG Tab PO ONE (20:45)
[2022-06-03] MEDS ORDERED: Haloperidol Lactate 5 MG/ML SDV IM ONE (21:46)
== END 2022-06-03 22:52 | disposition home or self-care (01) ==
LOC: JD.ED 19:47
DX: G43.909 Migraine, unspecified, not intractable, without status migrainosus (principal); E11.65 Type 2 diabetes mellitus with hyperglycemia; I25.10 Atherosclerotic heart disease of native coronary artery without angina pectoris; J45.909 Unspecified asthma, uncomplicated; K21.9 Gastro-esophageal reflux disease without esophagitis; E11.9 Type 2 diabetes mellitus without complications; E66.9 Obesity, unspecified; Z88.1 Allergy status to other antibiotic agents; Z88.0 Allergy status to penicillin; Z88.5 Allergy status to narcotic agent; Z88.6 Allergy status to analgesic agent; Z91.013 Allergy to seafood; Z91.041 Radiographic dye allergy status; Z88.8 Allergy status to other drugs, medicaments and biological substances; Z79.899 Other long term (current) drug therapy; Z79.82 Long term (current) use of aspirin; Z79.4 Long term (current) use of insulin; Z86.16 Personal history of COVID-19; Z90.49 Acquired absence of other specified parts of digestive tract; Z87.891 Personal history of nicotine dependence; Z20.822 Contact with and (suspected) exposure to COVID-19
CPT/HCPCS: 36415; 70450; 80053; 82947; 83735; 84484; 85025; 85379; 85610; 85730; 93005; 96372; 99284; A9270; J1630; J3490; U0002

== ENCOUNTER 2022-06-07 18:44 | Emergency (ER) | payer MEDICARE, MEDICAID ==
[2022-06-07] MEDS ORDERED: Metoclopramide 10 MG/2 ML SDV IVPUSH ONE ×2 (20:54→22:12)
[2022-06-07] MEDS ORDERED: Sodium Chloride 0.9% 1,000 ML IV SCH (21:00)
[2022-06-07] MEDS ORDERED: diphenhydrAMINE 50 MG/ML SDV IVPUSH ONE (22:13)
== END 2022-06-07 23:34 | disposition home or self-care (01) ==
LOC: JD.ED 18:44
DX: R51.9 Headache, unspecified (principal); I25.10 Atherosclerotic heart disease of native coronary artery without angina pectoris; E78.00 Pure hypercholesterolemia, unspecified; I10 Essential (primary) hypertension; J44.9 Chronic obstructive pulmonary disease, unspecified; K21.9 Gastro-esophageal reflux disease without esophagitis; Z88.0 Allergy status to penicillin; Z91.018 Allergy to other foods; Z88.1 Allergy status to other antibiotic agents; Z88.5 Allergy status to narcotic agent; Z91.041 Radiographic dye allergy status; Z88.8 Allergy status to other drugs, medicaments and biological substances; Z79.82 Long term (current) use of aspirin; Z79.899 Other long term (current) drug therapy; Z86.73 Personal history of transient ischemic attack (TIA), and cerebral infarction without residual deficits; Z87.891 Personal history of nicotine dependence
CPT/HCPCS: 36415; 70450; 71045; 80053; 80306; 80307; 81003; 82550; 84484; 85007; 85027; 85379; 85610; 85730; 93005; 96361; 96374; 96375; 96376; 99284; J1200; J2765; J7030

== ENCOUNTER 2022-07-23 18:34 | Emergency (ER) | payer MEDICARE, MEDICAID ==
[2022-07-23] MEDS ORDERED: Promethazine 25 MG Tab PO ONE (20:00)
[2022-07-23] MEDS ORDERED: Magnesium Citrate Solution 296 ML Bottle PO ONE (21:05)
[2022-07-23] MEDS ORDERED: Metoclopramide 10 MG/2 ML SDV IM ONE (21:45)
== END 2022-07-23 22:53 | disposition home or self-care (01) ==
LOC: JD.ED 18:34
DX: R11.0 Nausea (principal); K59.09 Other constipation; J45.909 Unspecified asthma, uncomplicated; I25.10 Atherosclerotic heart disease of native coronary artery without angina pectoris; E78.00 Pure hypercholesterolemia, unspecified; I10 Essential (primary) hypertension; E11.9 Type 2 diabetes mellitus without complications; E66.9 Obesity, unspecified; Z68.41 Body mass index [BMI] 40.0-44.9, adult; Z88.1 Allergy status to other antibiotic agents; Z88.0 Allergy status to penicillin; Z88.5 Allergy status to narcotic agent; Z88.6 Allergy status to analgesic agent; Z91.013 Allergy to seafood; Z91.041 Radiographic dye allergy status; Z88.8 Allergy status to other drugs, medicaments and biological substances; Z79.899 Other long term (current) drug therapy; Z79.82 Long term (current) use of aspirin; Z79.4 Long term (current) use of insulin; Z90.49 Acquired absence of other specified parts of digestive tract
CPT/HCPCS: 74019; 96372; 99283; J2765; J8597

== ENCOUNTER 2022-07-29 17:00 | Emergency (ER) | payer MEDICARE, MEDICAID ==
[2022-07-29] MEDS ORDERED: Nitroglycerin 0.4 MG Tab.SL SL PRN (17:37)
[2022-07-29] MEDS ORDERED: Sodium Chloride 0.9% 1,000 ML IV SCH (17:45)
[2022-07-29] MEDS ORDERED: Metoprolol Tartrate 5 MG/5 ML SDV IVPUSH ONE (17:59)
[2022-07-29] MEDS ORDERED: HYDROmorphone 0.5 MG/0.5 ML Syringe IVPUSH ONE ×2 (18:05→18:58)
[2022-07-29 18:18] LABS: ESTIMATED GFR 77 mL/min (>60)
[2022-07-29] MEDS ORDERED: Famotidine 20 MG/2 ML SDV ONE (18:51)
[2022-07-29] MEDS ORDERED: diphenhydrAMINE 50 MG/ML SDV ONE (18:52)
[2022-07-29] MEDS ORDERED: HYDROmorphone 0.5 MG/0.5 ML Syringe ONE (18:54)
[2022-07-29] MEDS ORDERED: methylPREDNISolone Sodium Succinate 125 MG/2 ML SDV ONE (18:54)
[2022-07-29] MEDS ORDERED: Famotidine 20 MG/2 ML SDV IVPUSH ONE (18:57)
[2022-07-29] MEDS ORDERED: diphenhydrAMINE 50 MG/ML SDV IVPUSH ONE (18:57)
[2022-07-29] MEDS ORDERED: methylPREDNISolone Sodium Succinate 125 MG/2 ML SDV IVPUSH ONE (18:58)
[2022-07-29] MEDS ORDERED: Iopamidol 755 MG/ML 50 ML Bottle IVPUSH ONE (19:00)
[2022-07-29] MEDS ORDERED: Iopamidol 755 Mg/ML 100 ML Bottle IVPUSH ONE (19:00)
[2022-07-29] MEDS ORDERED: Sodium Chloride 0.9% 10 ML Syringe FLUSH PRN (19:00)
[2022-07-29] MEDS ORDERED: Sodium Chloride 0.9% 100 ML IV SCH (19:00)
== END 2022-07-29 22:20 | disposition home or self-care (01) ==
LOC: JD.ED 17:00
DX: R07.89 Other chest pain (principal); E78.1 Pure hyperglyceridemia; E11.65 Type 2 diabetes mellitus with hyperglycemia; I25.10 Atherosclerotic heart disease of native coronary artery without angina pectoris; I10 Essential (primary) hypertension; E78.00 Pure hypercholesterolemia, unspecified; J44.9 Chronic obstructive pulmonary disease, unspecified; K21.9 Gastro-esophageal reflux disease without esophagitis; I45.10 Unspecified right bundle-branch block; E66.9 Obesity, unspecified; Z68.41 Body mass index [BMI] 40.0-44.9, adult; Z88.1 Allergy status to other antibiotic agents; Z88.5 Allergy status to narcotic agent; Z88.0 Allergy status to penicillin; Z91.013 Allergy to seafood; Z88.8 Allergy status to other drugs, medicaments and biological substances; Z91.041 Radiographic dye allergy status; Z79.01 Long term (current) use of anticoagulants; Z79.82 Long term (current) use of aspirin; Z79.4 Long term (current) use of insulin; Z79.899 Other long term (current) drug therapy
CPT/HCPCS: 36415; 71045; 71260; 74177; 80053; 84484; 85025; 85610; 85730; 93005; 96361; 96374; 96375; 96376; 99285; A9270; J1170; J1200; J2930; J3490; J7030; Q9967

== ENCOUNTER 2022-07-31 15:51 | Emergency (ER) | payer MEDICARE, MEDICAID ==
[2022-07-31] MEDS ORDERED: Promethazine 25 MG Tab PO ONE (16:39)
[2022-07-31 18:16] LABS: ESTIMATED GFR 77 mL/min (>60)
== END 2022-07-31 19:32 | disposition home or self-care (01) ==
LOC: JD.ED 15:51
DX: K59.09 Other constipation (principal); I25.10 Atherosclerotic heart disease of native coronary artery without angina pectoris; E78.00 Pure hypercholesterolemia, unspecified; I10 Essential (primary) hypertension; J44.9 Chronic obstructive pulmonary disease, unspecified; K21.9 Gastro-esophageal reflux disease without esophagitis; E11.9 Type 2 diabetes mellitus without complications; N40.0 Benign prostatic hyperplasia without lower urinary tract symptoms; E66.9 Obesity, unspecified; Z68.41 Body mass index [BMI] 40.0-44.9, adult; Z79.01 Long term (current) use of anticoagulants; Z88.1 Allergy status to other antibiotic agents; Z88.0 Allergy status to penicillin; Z88.5 Allergy status to narcotic agent; Z91.013 Allergy to seafood; Z88.8 Allergy status to other drugs, medicaments and biological substances; Z91.041 Radiographic dye allergy status; Z79.02 Long term (current) use of antithrombotics/antiplatelets; Z79.82 Long term (current) use of aspirin; Z79.4 Long term (current) use of insulin; Z79.899 Other long term (current) drug therapy
CPT/HCPCS: 36415; 74019; 80053; 83735; 85025; 99283; J8597

== ENCOUNTER 2022-09-17 | Emergency (ER) | payer MEDICARE, MEDICAID ==
[2022-09-17] MEDS ORDERED: Sodium Chloride 0.9% 10 ML Syringe FLUSH PRN (00:47)
[2022-09-17] MEDS ORDERED: Ondansetron 4 MG/2 ML SDV IVPUSH ONE (00:47)
[2022-09-17] MEDS ORDERED: HYDROmorphone 1 MG/ML Syringe IVPUSH ONE ×2 (00:47→04:10)
[2022-09-17] MEDS ORDERED: Sodium Chloride 0.9% 1,000 ML IV SCH (01:00)
[2022-09-17 02:48] LABS: ESTIMATED GFR 86 mL/min (>60)
== END 2022-09-17 04:41 | disposition home or self-care (01) ==
LOC: JD.ED
DX: R07.89 Other chest pain (principal); M54.50 Low back pain, unspecified; I10 Essential (primary) hypertension; E78.00 Pure hypercholesterolemia, unspecified; K21.9 Gastro-esophageal reflux disease without esophagitis; Z79.899 Other long term (current) drug therapy; Z88.8 Allergy status to other drugs, medicaments and biological substances
CPT/HCPCS: 36415; 71045; 74176; 80053; 81003; 84484; 85025; 93005; 96361; 96374; 96375; 96376; 99285; J1170; J2405; J3490; J7030

== ENCOUNTER 2022-09-30 21:20 | Emergency (ER) | payer MEDICARE, MEDICAID ==
[2022-09-30] MEDS ORDERED: Sodium Chloride 0.9% 10 ML Syringe FLUSH ONE (21:48)
[2022-09-30] MEDS ORDERED: INFUSION IV ONE (21:48)
[2022-09-30] MEDS ORDERED: ALTEPLASE IV ONE (21:48)
[2022-09-30] MEDS ORDERED: Iopamidol 755 Mg/ML 100 ML Bottle IVPUSH ONE (21:48)
[2022-09-30] MEDS ORDERED: diphenhydrAMINE 50 MG/ML SDV IVPUSH ONE (21:53)
[2022-09-30] MEDS ORDERED: methylPREDNISolone Sodium Succinate 125 MG/2 ML SDV IVPUSH ONE (21:53)
[2022-09-30] MEDS ORDERED: Sodium Chloride 0.9% 100 ML IV SCH (22:00)
[2022-09-30 22:46] LABS: CORONAVIRUS COVID-19 NAA NEGATIVE (NEGATIVE)
== END 2022-10-01 00:22 | disposition home or self-care (01) ==
LOC: JD.ED 21:20
DX: E11.65 Type 2 diabetes mellitus with hyperglycemia (principal); R53.1 Weakness; R20.2 Paresthesia of skin; I45.10 Unspecified right bundle-branch block; I25.10 Atherosclerotic heart disease of native coronary artery without angina pectoris; E78.00 Pure hypercholesterolemia, unspecified; I10 Essential (primary) hypertension; J44.9 Chronic obstructive pulmonary disease, unspecified; K21.9 Gastro-esophageal reflux disease without esophagitis; M19.90 Unspecified osteoarthritis, unspecified site; E66.9 Obesity, unspecified; Z68.39 Body mass index [BMI] 39.0-39.9, adult; Z87.891 Personal history of nicotine dependence; Z79.01 Long term (current) use of anticoagulants; Z79.02 Long term (current) use of antithrombotics/antiplatelets; Z79.82 Long term (current) use of aspirin; Z79.4 Long term (current) use of insulin; Z79.899 Other long term (current) drug therapy; Z88.1 Allergy status to other antibiotic agents; Z88.0 Allergy status to penicillin; Z88.5 Allergy status to narcotic agent; Z91.013 Allergy to seafood; Z88.8 Allergy status to other drugs, medicaments and biological substances; Z91.041 Radiographic dye allergy status
CPT/HCPCS: 0241U; 36415; 70450; 70496; 70498; 80053; 82947; 83735; 84484; 85025; 85379; 85610; 85730; 93005; 96374; 96375; 99285; J1200; J2930; J3490; Q9967

== ENCOUNTER 2022-10-22 15:37 | Emergency (ER) | payer MEDICARE, MEDICAID ==
[2022-10-22] MEDS ORDERED: Insulin Regular, Human 100 Units/ML 3 ML Vial SUBCUT ONE (16:52)
[2022-10-22 17:43] LABS: CORONAVIRUS COVID-19 NAA NEGATIVE (NEGATIVE)
[2022-10-22] MEDS ORDERED: Nitroglycerin 0.4 MG Tab.SL ONE (18:21)
[2022-10-22] MEDS ORDERED: Nitroglycerin 0.4 MG Tab.SL SL PRN (18:26)
[2022-10-22] MEDS ORDERED: Nitroglycerin 0.4 MG Tab.SL SL SCH (18:30)
[2022-10-22] MEDS ORDERED: HYDROmorphone 0.5 MG/0.5 ML Syringe IVPUSH ONE (19:21)
[2022-10-22] MEDS ORDERED: Iopamidol 755 Mg/ML 100 ML Bottle IVPUSH ONE (19:47)
[2022-10-22] MEDS ORDERED: Sodium Chloride 0.9% 10 ML Syringe FLUSH ONE (19:47)
[2022-10-22] MEDS ORDERED: Sodium Chloride 0.9% 100 ML IV SCH (20:00)
[2022-10-22] MEDS ORDERED: Ondansetron 4 MG/2 ML SDV IVPUSH ONE (20:05)
[2022-10-22] MEDS ORDERED: Famotidine 20 MG/2 ML SDV IVPUSH ONE (20:11)
[2022-10-22] MEDS ORDERED: diphenhydrAMINE 50 MG/ML SDV IVPUSH ONE (20:11)
[2022-10-22] MEDS ORDERED: methylPREDNISolone Sodium Succinate 125 MG/2 ML SDV IVPUSH ONE (20:11)
[2022-10-22] MEDS ORDERED: Famotidine 20 MG/2 ML SDV ONE (20:25)
== END 2022-10-22 22:35 | disposition home or self-care (01) ==
LOC: JD.ED 15:37
DX: R07.9 Chest pain, unspecified (principal); E11.65 Type 2 diabetes mellitus with hyperglycemia; I25.10 Atherosclerotic heart disease of native coronary artery without angina pectoris; J45.909 Unspecified asthma, uncomplicated; E78.00 Pure hypercholesterolemia, unspecified; E11.9 Type 2 diabetes mellitus without complications; E66.9 Obesity, unspecified; Z68.30 Body mass index [BMI] 30.0-30.9, adult; Z88.1 Allergy status to other antibiotic agents; Z88.0 Allergy status to penicillin; Z88.5 Allergy status to narcotic agent; Z88.6 Allergy status to analgesic agent; Z91.013 Allergy to seafood; Z91.041 Radiographic dye allergy status; Z88.7 Allergy status to serum and vaccine; Z79.899 Other long term (current) drug therapy; Z79.82 Long term (current) use of aspirin; Z79.4 Long term (current) use of insulin; Z86.16 Personal history of COVID-19; Z90.49 Acquired absence of other specified parts of digestive tract; Z86.73 Personal history of transient ischemic attack (TIA), and cerebral infarction without residual deficits
CPT/HCPCS: 0240U; 36415; 71045; 71275; 80053; 81003; 82009; 82947; 83605; 83880; 84484; 85025; 85610; 85730; 87040; 93005; 96374; 96375; 99285; J1170; J1200; J1815; J2405; J2930; J3490; 93010; 99284

== ENCOUNTER 2022-11-16 18:46 | Emergency (ER) | payer MEDICAID, MEDICARE ==
[2022-11-16] MEDS ORDERED: Sodium Chloride 0.9% 10 ML Syringe FLUSH PRN (19:24)
[2022-11-16] MEDS ORDERED: Aspirin 81 MG Tab.Chew PO ONE (19:27)
[2022-11-16] MEDS ORDERED: Sodium Chloride 0.9% 1,000 ML IV SCH (19:30)
[2022-11-16] MEDS: Nitroglycerin 0.4 MG Tab.SL SL PRN ×2 (20:12→20:37)
[2022-11-16] MEDS ORDERED: HYDROmorphone 0.5 MG/0.5 ML Syringe IVPUSH ONE (21:03)
== END 2022-11-16 21:54 | disposition home or self-care (01) ==
LOC: JD.ED 18:46
DX: R07.2 Precordial pain (principal); E78.00 Pure hypercholesterolemia, unspecified; I10 Essential (primary) hypertension; J44.9 Chronic obstructive pulmonary disease, unspecified; K21.9 Gastro-esophageal reflux disease without esophagitis; M19.90 Unspecified osteoarthritis, unspecified site; E11.9 Type 2 diabetes mellitus without complications; E66.9 Obesity, unspecified; Z68.41 Body mass index [BMI] 40.0-44.9, adult; Z79.01 Long term (current) use of anticoagulants; Z88.1 Allergy status to other antibiotic agents; Z88.0 Allergy status to penicillin; Z88.5 Allergy status to narcotic agent; Z91.013 Allergy to seafood; Z88.8 Allergy status to other drugs, medicaments and biological substances; Z91.041 Radiographic dye allergy status; Z79.82 Long term (current) use of aspirin; Z79.899 Other long term (current) drug therapy
CPT/HCPCS: 36415; 71045; 80053; 83735; 84484; 85025; 85379; 85610; 85730; 93005; 96361; 96374; 99285; A9270; J1170; J7030; 93010; 99284

== ENCOUNTER 2022-12-21 17:15 | Emergency (ER) | payer MEDICAID, MEDICARE ==
[2022-12-21] MEDS ORDERED: Ondansetron 4 MG/2 ML SDV IVPUSH ONE (17:37)
[2022-12-21] MEDS ORDERED: HYDROmorphone 1 MG/ML Syringe IVPUSH STA (17:37)
[2022-12-21] MEDS ORDERED: Sodium Chloride 0.9% 1,000 ML IV SCH (17:45)
[2022-12-21 18:56] LABS: ESTIMATED GFR 86 mL/min (>60)
== END 2022-12-21 20:50 | disposition home or self-care (01) ==
LOC: JD.ED 17:15
DX: R10.9 Unspecified abdominal pain (principal); I25.10 Atherosclerotic heart disease of native coronary artery without angina pectoris; E78.00 Pure hypercholesterolemia, unspecified; I10 Essential (primary) hypertension; J44.9 Chronic obstructive pulmonary disease, unspecified; K21.9 Gastro-esophageal reflux disease without esophagitis; N40.0 Benign prostatic hyperplasia without lower urinary tract symptoms; E11.9 Type 2 diabetes mellitus without complications; E66.9 Obesity, unspecified; Z86.73 Personal history of transient ischemic attack (TIA), and cerebral infarction without residual deficits; Z88.1 Allergy status to other antibiotic agents; Z88.5 Allergy status to narcotic agent; Z91.048 Other nonmedicinal substance allergy status; Z91.041 Radiographic dye allergy status; Z91.018 Allergy to other foods; Z86.16 Personal history of COVID-19; Z79.82 Long term (current) use of aspirin; Z79.899 Other long term (current) drug therapy; Z79.02 Long term (current) use of antithrombotics/antiplatelets; Z68.42 Body mass index [BMI] 45.0-49.9, adult
CPT/HCPCS: 36415; 74176; 80053; 84484; 85025; 93005; 96361; 96374; 96375; 99284; J1170; J2405; J7030

== ENCOUNTER 2022-12-29 19:03 | Emergency (ER) | payer MEDICAID, MEDICARE ==
[2022-12-29] MEDS ORDERED: Ondansetron 4 MG/2 ML SDV IVPUSH ONE (19:34)
[2022-12-29] MEDS ORDERED: HYDROmorphone 1 MG/ML Syringe IVPUSH ONE (19:34)
[2022-12-29] MEDS ORDERED: Alum Hydrox/Mag Hydrox/Simeth 30 ML, Lidocaine 2% 15 ML PO STA ×2 (19:34)
[2022-12-29] MEDS ORDERED: Sodium Chloride 0.9% 1,000 ML IV SCH (19:45)
[2022-12-29] MEDS ORDERED: Sodium Chloride 0.9% 100 ML IV SCH (20:45)
[2022-12-29] MEDS ORDERED: Iopamidol 755 Mg/ML 100 ML Bottle IVPUSH ONE (20:45)
[2022-12-29] MEDS ORDERED: methylPREDNISolone Sodium Succinate 125 MG/2 ML SDV IVPUSH ONE (20:49)
[2022-12-29] MEDS ORDERED: diphenhydrAMINE 50 MG/ML SDV IVPUSH ONE (20:49)
== END 2022-12-29 22:30 | disposition home or self-care (01) ==
LOC: JD.ED 19:03
DX: R07.89 Other chest pain (principal); E78.00 Pure hypercholesterolemia, unspecified; I25.10 Atherosclerotic heart disease of native coronary artery without angina pectoris; K21.9 Gastro-esophageal reflux disease without esophagitis; I10 Essential (primary) hypertension; I25.2 Old myocardial infarction; E66.9 Obesity, unspecified; Z68.39 Body mass index [BMI] 39.0-39.9, adult; Z88.1 Allergy status to other antibiotic agents; Z88.0 Allergy status to penicillin; Z88.5 Allergy status to narcotic agent; Z88.6 Allergy status to analgesic agent; Z91.013 Allergy to seafood; Z91.041 Radiographic dye allergy status; Z88.8 Allergy status to other drugs, medicaments and biological substances; Z79.899 Other long term (current) drug therapy; Z79.82 Long term (current) use of aspirin; Z79.4 Long term (current) use of insulin; Z86.16 Personal history of COVID-19; Z90.49 Acquired absence of other specified parts of digestive tract; Z87.891 Personal history of nicotine dependence
CPT/HCPCS: 36415; 71045; 71275; 80053; 83735; 83880; 84484; 85025; 85379; 85610; 85730; 93005; 96361; 96374; 96375; 99285; A9270; J1170; J1200; J2405; J2930; J3490; J7030; Q9967; 93010; 99284

== ENCOUNTER 2023-01-09 11:41 | Emergency (ER) | payer MEDICARE ==
[2023-01-09] MEDS ORDERED: Alum Hydrox/Mag Hydrox/Simeth 30 ML, Lidocaine 2% 15 ML PO ONE ×2 (12:41)
[2023-01-09] MEDS ORDERED: LORazepam 2 MG/ML SDV IVPUSH ONE (12:44)
[2023-01-09] MEDS ORDERED: Aluminum Hydroxide/Magnesium Hydroxide/Simethicone Susp 30 ML Cup ONE (12:51)
[2023-01-09] MEDS ORDERED: HYDROmorphone 0.5 MG/0.5 ML Syringe IVPUSH ONE (13:27)
[2023-01-09] MEDS ORDERED: Ondansetron 4 MG/2 ML SDV IVPUSH ONE (13:27)
== END 2023-01-09 13:55 | disposition home or self-care (01) ==
LOC: JD.ED 11:41
DX: R07.89 Other chest pain (principal); I25.10 Atherosclerotic heart disease of native coronary artery without angina pectoris; E78.00 Pure hypercholesterolemia, unspecified; I10 Essential (primary) hypertension; I25.2 Old myocardial infarction; J44.9 Chronic obstructive pulmonary disease, unspecified; N40.0 Benign prostatic hyperplasia without lower urinary tract symptoms; E11.9 Type 2 diabetes mellitus without complications; E66.9 Obesity, unspecified; Z68.41 Body mass index [BMI] 40.0-44.9, adult; Z88.5 Allergy status to narcotic agent; Z88.1 Allergy status to other antibiotic agents; Z88.0 Allergy status to penicillin; Z91.018 Allergy to other foods; Z91.041 Radiographic dye allergy status; Z91.013 Allergy to seafood; Z79.02 Long term (current) use of antithrombotics/antiplatelets; Z79.82 Long term (current) use of aspirin; Z79.899 Other long term (current) drug therapy
CPT/HCPCS: 36415; 71045; 80053; 83735; 83880; 84484; 85025; 85379; 85610; 85730; 93005; 96374; 96375; 99285; A9270; J1170; J2060; J2405; 93010; 99284

== ENCOUNTER 2023-01-09 19:00 | Emergency (ER) | payer MEDICARE ==
[2023-01-09] MEDS ORDERED: Ketorolac 60 MG/2 ML SDV IM ONE (21:14)
== END 2023-01-09 21:40 | disposition home or self-care (01) ==
LOC: JD.ED 19:00
DX: M54.6 Pain in thoracic spine (principal); I25.10 Atherosclerotic heart disease of native coronary artery without angina pectoris; E78.00 Pure hypercholesterolemia, unspecified; I10 Essential (primary) hypertension; I25.2 Old myocardial infarction; J44.9 Chronic obstructive pulmonary disease, unspecified; K21.9 Gastro-esophageal reflux disease without esophagitis; M19.90 Unspecified osteoarthritis, unspecified site; E11.9 Type 2 diabetes mellitus without complications; E66.9 Obesity, unspecified; Z68.41 Body mass index [BMI] 40.0-44.9, adult; Z88.1 Allergy status to other antibiotic agents; Z88.0 Allergy status to penicillin; Z88.5 Allergy status to narcotic agent; Z88.8 Allergy status to other drugs, medicaments and biological substances; Z91.013 Allergy to seafood; Z91.041 Radiographic dye allergy status; Z79.82 Long term (current) use of aspirin; Z79.4 Long term (current) use of insulin; Z79.899 Other long term (current) drug therapy
CPT/HCPCS: 71101; 96372; 99283; J1885

== ENCOUNTER 2023-01-13 18:19 | Emergency (ER) | payer MEDICARE ==
[2023-01-13] MEDS ORDERED: Ketorolac 60 MG/2 ML SDV IM ONE (18:45)
[2023-01-13] MEDS ORDERED: HYDROmorphone 1 MG/ML Syringe IM ONE (20:11)
== END 2023-01-13 20:36 | disposition home or self-care (01) ==
LOC: JD.ED 18:19
DX: R07.89 Other chest pain (principal); I25.10 Atherosclerotic heart disease of native coronary artery without angina pectoris; E78.00 Pure hypercholesterolemia, unspecified; I10 Essential (primary) hypertension; I25.2 Old myocardial infarction; J44.9 Chronic obstructive pulmonary disease, unspecified; K21.9 Gastro-esophageal reflux disease without esophagitis; E11.9 Type 2 diabetes mellitus without complications; E66.9 Obesity, unspecified; Z68.41 Body mass index [BMI] 40.0-44.9, adult; Z91.041 Radiographic dye allergy status; Z88.8 Allergy status to other drugs, medicaments and biological substances; Z88.1 Allergy status to other antibiotic agents; Z91.013 Allergy to seafood; Z88.0 Allergy status to penicillin; Z88.5 Allergy status to narcotic agent; Z79.899 Other long term (current) drug therapy; Z79.02 Long term (current) use of antithrombotics/antiplatelets; Z79.82 Long term (current) use of aspirin
CPT/HCPCS: 36415; 71101; 80053; 84484; 85025; 93005; 96372; 99284; J1170; J1885; 93010

== ENCOUNTER 2023-01-22 20:48 | Emergency (ER) | payer MEDICARE, MEDICAID ==
[2023-01-22] MEDS ORDERED: HYDROmorphone 1 MG/ML Syringe IM ONE (21:12)
[2023-01-22] MEDS ORDERED: Ondansetron 4 MG Tab.DIS PO ONE (21:12)
== END 2023-01-22 21:56 | disposition home or self-care (01) ==
LOC: JD.ED 20:48
DX: M79.672 Pain in left foot (principal); R11.0 Nausea; I25.10 Atherosclerotic heart disease of native coronary artery without angina pectoris; E78.00 Pure hypercholesterolemia, unspecified; I10 Essential (primary) hypertension; I25.2 Old myocardial infarction; J44.9 Chronic obstructive pulmonary disease, unspecified; K21.9 Gastro-esophageal reflux disease without esophagitis; E11.9 Type 2 diabetes mellitus without complications; E66.9 Obesity, unspecified; Z68.30 Body mass index [BMI] 30.0-30.9, adult; Z79.4 Long term (current) use of insulin; Z88.1 Allergy status to other antibiotic agents; Z88.0 Allergy status to penicillin; Z88.5 Allergy status to narcotic agent; Z91.013 Allergy to seafood; Z91.041 Radiographic dye allergy status; Z88.2 Allergy status to sulfonamides; Z79.02 Long term (current) use of antithrombotics/antiplatelets; Z79.899 Other long term (current) drug therapy
CPT/HCPCS: 73630; 96372; 99284; A9270; J1170; 99283

== ENCOUNTER 2023-01-24 01:18 | Emergency (ER) | payer MEDICARE, MEDICAID ==
[2023-01-24] MEDS ORDERED: Ondansetron 4 MG/2 ML SDV IVPUSH ONE (01:46)
[2023-01-24] MEDS ORDERED: HYDROmorphone 1 MG/ML Syringe IVPUSH ONE (01:46)
[2023-01-24] MEDS ORDERED: LORazepam 2 MG/ML SDV IVPUSH STA (01:46)
[2023-01-24 02:34] LABS: ESTIMATED GFR 76 mL/min (>60)
[2023-01-24] MEDS ORDERED: Sodium Chloride 0.9% 1,000 ML IV ONE ×2 (03:05→04:29)
[2023-01-24] MEDS ORDERED: HYDROmorphone 0.5 MG/0.5 ML Syringe IVPUSH ONE (05:29)
== END 2023-01-24 05:52 | disposition home or self-care (01) ==
LOC: JD.ED 01:18
DX: R07.89 Other chest pain (principal); I95.1 Orthostatic hypotension; E11.65 Type 2 diabetes mellitus with hyperglycemia; J44.9 Chronic obstructive pulmonary disease, unspecified; K21.9 Gastro-esophageal reflux disease without esophagitis; N40.0 Benign prostatic hyperplasia without lower urinary tract symptoms; E66.9 Obesity, unspecified; Z68.30 Body mass index [BMI] 30.0-30.9, adult; Z86.73 Personal history of transient ischemic attack (TIA), and cerebral infarction without residual deficits; Z91.013 Allergy to seafood; Z88.0 Allergy status to penicillin; Z88.1 Allergy status to other antibiotic agents; Z91.018 Allergy to other foods; Z91.041 Radiographic dye allergy status; Z88.5 Allergy status to narcotic agent; Z88.8 Allergy status to other drugs, medicaments and biological substances; Z79.02 Long term (current) use of antithrombotics/antiplatelets; Z79.899 Other long term (current) drug therapy; Z79.82 Long term (current) use of aspirin; Z86.16 Personal history of COVID-19; Z87.891 Personal history of nicotine dependence
CPT/HCPCS: 36415; 71046; 80053; 83880; 84484; 85025; 85379; 85610; 85730; 93005; 96361; 96374; 96375; 96376; 99284; J1170; J2060; J2405; J7030; 93010

== ENCOUNTER 2023-01-25 18:33 | Emergency (ER) | payer MEDICARE, MEDICAID ==
[2023-01-25] MEDS ORDERED: Sodium Chloride 0.9% 10 ML Syringe FLUSH PRN (18:49)
[2023-01-25] MEDS ORDERED: Aspirin 81 MG Tab.Chew PO ONE (19:21)
[2023-01-25] MEDS: Nitroglycerin 0.4 MG Tab.SL SL PRN ×4 (19:30→20:34)
[2023-01-25] MEDS ORDERED: Sodium Chloride 0.9% 1,000 ML IV SCH (19:30)
[2023-01-25] MEDS ORDERED: LORazepam 2 MG/ML SDV IVPUSH ONE (20:29)
[2023-01-25] MEDS ORDERED: Magnesium Oxide 400 MG Tab PO ONE (21:32)
[2023-01-25] MEDS ORDERED: Nitroglycerin 0.4 MG Tab.SL SL ONE (21:37)
[2023-01-25] MEDS ORDERED: Acetaminophen/oxyCODONE 325-5 MG Tab PO ONE (22:28)
== END 2023-01-25 22:41 | disposition home or self-care (01) ==
LOC: JD.ED 18:33
DX: I20.9 Angina pectoris, unspecified (principal); F41.9 Anxiety disorder, unspecified; I10 Essential (primary) hypertension; E78.00 Pure hypercholesterolemia, unspecified; I25.2 Old myocardial infarction; J44.9 Chronic obstructive pulmonary disease, unspecified; K21.9 Gastro-esophageal reflux disease without esophagitis; M19.90 Unspecified osteoarthritis, unspecified site; E11.9 Type 2 diabetes mellitus without complications; E66.9 Obesity, unspecified; Z68.41 Body mass index [BMI] 40.0-44.9, adult; Z90.49 Acquired absence of other specified parts of digestive tract; Z88.1 Allergy status to other antibiotic agents; Z88.0 Allergy status to penicillin; Z88.5 Allergy status to narcotic agent; Z91.013 Allergy to seafood; Z88.8 Allergy status to other drugs, medicaments and biological substances; Z91.041 Radiographic dye allergy status; Z79.02 Long term (current) use of antithrombotics/antiplatelets; Z79.82 Long term (current) use of aspirin; Z79.4 Long term (current) use of insulin; Z79.899 Other long term (current) drug therapy
CPT/HCPCS: 36415; 71045; 80053; 83735; 83880; 84484; 85025; 85379; 85610; 85730; 93005; 96361; 96374; 99285; A9270; J2060; J3490; J7030; 93010; 99284

== ENCOUNTER 2023-02-25 18:07 | Emergency (ER) | payer MEDICARE ==
[2023-02-25] MEDS ORDERED: Sodium Chloride 0.9% 10 ML Syringe FLUSH PRN (18:16)
[2023-02-25] MEDS ORDERED: Sodium Chloride 0.9% 1,000 ML IV ONE (18:17)
[2023-02-25] MEDS ORDERED: HYDROmorphone 1 MG/ML Syringe IVPUSH STA (18:24)
[2023-02-25] MEDS ORDERED: diphenhydrAMINE 50 MG/ML SDV IVPUSH ONE (18:24)
[2023-02-25] MEDS ORDERED: methylPREDNISolone Sodium Succinate 125 MG/2 ML SDV IVPUSH ONE (18:25)
[2023-02-25] MEDS ORDERED: Ondansetron 4 MG/2 ML SDV IVPUSH ONE (18:25)
[2023-02-25] MEDS ORDERED: Iopamidol 612 MG/ML 100 ML Bottle IVPUSH ONE (18:34)
[2023-02-25 19:19] LABS: BASOPHILS ABSOLUTE AUTO 0.05 K/mm3 (0.01-0.08); BASOPHILS PERCENT AUTO 0.6 % (0.1-1.2); EOSINOPHILS ABSOLUTE AUTO 0.91 K/mm3 (0.04-0.54); EOSINOPHILS PERCENT AUTO 10.6 (0.8-7.0); HEMOGLOBIN 17.1 gm/dl (13.7-17.5); IMMATURE GRAN ABSOLUTE AUTO 0.12 K/mm3 (0.00-0.10); IMMATURE GRAN PERCENT AUTO 1.4 % (<=1.0); LYMPHOCYTES ABSOLUTE AUTO 1.43 K/mm3 (1.32-3.57); LYMPHOCYTES PERCENT AUTO 16.6 % (21.8-53.1); MEAN CORPUSCULAR HEMOGLOBIN 31.8 pg (25.7-32.2); MEAN CORPUSCULAR HGB CONC 34.9 g/dl (32.2-35.5); MEAN CORPUSCULAR VOLUME 91.2 fl (79.0-92.2); MEAN PLATELET VOLUME 9.2 fl (9.4-12.3); MONOCYTES ABSOLUTE AUTO 0.78 K/mm3 (0.30-0.82); MONOCYTES PERCENT AUTO 9.1 % (5.3-12.2); NEUTROPHILS ABSOLUTE AUTO 5.31 K/mm3 (1.78-5.38); NEUTROPHILS PERCENT AUTO 61.7 % (34.0-67.9); PLATELET COUNT,PLT 258 K/mm3 (163-337); RED BLOOD CELL COUNT 5.37 M/mm3 (4.63-6.08)
[2023-02-25 19:52] LABS: A/G RATIO 0.9 (1-2); ALANINE AMINOTRANSFERASE,ALT 84 U/L (16-63); ALBUMIN 3.6 g/dl (3.4-5.0); ALKALINE PHOSPHATASE 117 U/L (46-116); ANION GAP 16.4 (5-15); ASPARTATE AMNIOTRANSFERASE,AST 39 U/L (15-37); BILIRUBIN TOTAL 0.2 mg/dL (0.2-1.0); BLOOD UREA NITROGEN,BUN 12 mg/dL (7-18); BUN/CREATININE RATIO 10.9 (14-18); CALCIUM 8.8 mg/dL (8.5-10.1); CARBON DIOXIDE,CO2 22 mEq/L (21-32); CHLORIDE,CL 105 mEq/L (98-107); CREATININE 1.1 mg/dL (0.7-1.3); ESTIMATED GFR 76 mL/min (>60); GLUCOSE RANDOM 165 mg/dL (70-99); MAGNESIUM 1.9 mg/dL (1.8-2.4); POTASSIUM,K 3.4 mEq/L (3.5-5.1); PROTEIN TOTAL,TP 7.7 g/dl (6.4-8.2); SODIUM,NA 140 mEq/L (136-145)
[2023-02-25 19:53] LABS: C-REACTIVE PROTEIN < 0.2 mg/dL (<1.0)
[2023-02-25 19:54] LABS: GAMMA GLUTAMYL TRANSFERASE,GGT 134 U/L (15-85); LIPASE 68 U/L (73-393)
[2023-02-25] MEDS ORDERED: HYDROmorphone 1 MG/ML Syringe IVPUSH ONE (20:29)
== END 2023-02-25 21:21 | disposition home or self-care (01) ==
LOC: JD.ED 18:07
DX: K52.9 Noninfective gastroenteritis and colitis, unspecified (principal); I25.10 Atherosclerotic heart disease of native coronary artery without angina pectoris; E78.00 Pure hypercholesterolemia, unspecified; I10 Essential (primary) hypertension; I25.2 Old myocardial infarction; J45.909 Unspecified asthma, uncomplicated; E11.9 Type 2 diabetes mellitus without complications; E66.9 Obesity, unspecified; Z68.30 Body mass index [BMI] 30.0-30.9, adult; Z91.013 Allergy to seafood; Z88.5 Allergy status to narcotic agent; Z88.0 Allergy status to penicillin; Z91.041 Radiographic dye allergy status; Z88.8 Allergy status to other drugs, medicaments and biological substances; Z79.02 Long term (current) use of antithrombotics/antiplatelets; Z79.82 Long term (current) use of aspirin; Z79.899 Other long term (current) drug therapy; Z86.16 Personal history of COVID-19
CPT/HCPCS: 36415; 74177; 80053; 82977; 83690; 83735; 85025; 86140; 96361; 96374; 96375; 96376; 99285; J1170; J1200; J2405; J2930; J3490; J7030; Q9967; 99284

== ENCOUNTER 2023-03-10 11:25 | Emergency (ER) | payer MEDICAID, MEDICARE ==
[2023-03-10] MEDS ORDERED: Iopamidol 755 Mg/ML 100 ML Bottle IVPUSH ONE (11:42)
[2023-03-10] MEDS ORDERED: Sodium Chloride 0.9% 100 ML IV SCH (11:45)
[2023-03-10 11:47] LABS: BASOPHILS ABSOLUTE AUTO 0.06 K/mm3 (0.01-0.08); BASOPHILS PERCENT AUTO 0.7 % (0.1-1.2); EOSINOPHILS ABSOLUTE AUTO 0.86 K/mm3 (0.04-0.54); EOSINOPHILS PERCENT AUTO 10.6 (0.8-7.0); HEMATOCRIT 49.7 % (40.1-51.0); IMMATURE GRAN ABSOLUTE AUTO 0.03 K/mm3 (0.00-0.10); IMMATURE GRAN PERCENT AUTO 0.4 % (<=1.0); LYMPHOCYTES ABSOLUTE AUTO 1.58 K/mm3 (1.32-3.57); LYMPHOCYTES PERCENT AUTO 19.5 % (21.8-53.1); MEAN CORPUSCULAR HEMOGLOBIN 31.9 pg (25.7-32.2); MEAN CORPUSCULAR HGB CONC 34.2 g/dl (32.2-35.5); MEAN CORPUSCULAR VOLUME 93.2 fl (79.0-92.2); MEAN PLATELET VOLUME 9.2 fl (9.4-12.3); MONOCYTES ABSOLUTE AUTO 0.77 K/mm3 (0.30-0.82); MONOCYTES PERCENT AUTO 9.5 % (5.3-12.2); NEUTROPHILS ABSOLUTE AUTO 4.81 K/mm3 (1.78-5.38); NEUTROPHILS PERCENT AUTO 59.3 % (34.0-67.9); PLATELET COUNT,PLT 269 K/mm3 (163-337); RED BLOOD CELL COUNT 5.33 M/mm3 (4.63-6.08); WHITE BLOOD CELL COUNT,WBC 8.11 K/mm3 (4.23-9.07)
[2023-03-10] MEDS ORDERED: methylPREDNISolone Sodium Succinate 125 MG/2 ML SDV IVPUSH ONE (11:52)
[2023-03-10] MEDS ORDERED: Famotidine 20 MG/2 ML SDV IVPUSH ONE (11:52)
[2023-03-10] MEDS ORDERED: diphenhydrAMINE 50 MG/ML SDV IVPUSH ONE (11:52)
[2023-03-10 12:11] LABS: A/G RATIO 0.9 (1-2); ALBUMIN 3.7 g/dl (3.4-5.0); ANION GAP 15.9 (5-15); BILIRUBIN TOTAL 0.3 mg/dL (0.2-1.0); BUN/CREATININE RATIO 11.7 (14-18); CREATININE 1.2 mg/dL (0.7-1.3); EST CRCL DRUG DOSING (CG) 73.06 mL/min; POTASSIUM,K 3.9 mEq/L (3.5-5.1)
[2023-03-10] MEDS: Sodium Chloride 0.9% 10 ML Syringe FLUSH PRN ×2 (12:25→12:38)
[2023-03-10] MEDS ORDERED: Acetaminophen/oxyCODONE 325-5 MG Tab PO ONE (14:36)
== END 2023-03-10 16:40 | disposition home or self-care (01) ==
LOC: JD.ED 11:25
DX: M54.2 Cervicalgia (principal); M54.6 Pain in thoracic spine; I10 Essential (primary) hypertension; E78.00 Pure hypercholesterolemia, unspecified; I25.10 Atherosclerotic heart disease of native coronary artery without angina pectoris; I25.2 Old myocardial infarction; J44.9 Chronic obstructive pulmonary disease, unspecified; K21.9 Gastro-esophageal reflux disease without esophagitis; M19.90 Unspecified osteoarthritis, unspecified site; E11.9 Type 2 diabetes mellitus without complications; E66.9 Obesity, unspecified; Z86.16 Personal history of COVID-19; Z88.1 Allergy status to other antibiotic agents; Z88.0 Allergy status to penicillin; Z88.5 Allergy status to narcotic agent; Z91.013 Allergy to seafood; Z88.8 Allergy status to other drugs, medicaments and biological substances; Z91.041 Radiographic dye allergy status; Z79.899 Other long term (current) drug therapy; Z79.82 Long term (current) use of aspirin; Z79.02 Long term (current) use of antithrombotics/antiplatelets
CPT/HCPCS: 36415; 70450; 71260; 72125; 72128; 72131; 74177; 80053; 85025; 96374; 96375; 99284; A9270; J1200; J2930; J3490; Q9967

== ENCOUNTER 2023-04-05 20:27 | Emergency (ER) | payer MEDICAID, MEDICARE ==
[2023-04-05 20:42] LABS: BASOPHILS ABSOLUTE AUTO 0.04 K/mm3 (0.01-0.08); BASOPHILS PERCENT AUTO 0.5 % (0.1-1.2); EOSINOPHILS ABSOLUTE AUTO 0.38 K/mm3 (0.04-0.54); EOSINOPHILS PERCENT AUTO 5.1 (0.8-7.0); HEMATOCRIT 49.5 % (40.1-51.0); IMMATURE GRAN ABSOLUTE AUTO 0.06 K/mm3 (0.00-0.10); IMMATURE GRAN PERCENT AUTO 0.8 % (<=1.0); LYMPHOCYTES PERCENT AUTO 21.7 % (21.8-53.1); MEAN CORPUSCULAR HGB CONC 34.3 g/dl (32.2-35.5); MEAN PLATELET VOLUME 8.7 fl (9.4-12.3); MONOCYTES PERCENT AUTO 10.8 % (5.3-12.2); NEUTROPHILS PERCENT AUTO 61.1 % (34.0-67.9); PLATELET COUNT,PLT 221 K/mm3 (163-337); RED BLOOD CELL COUNT 5.32 M/mm3 (4.63-6.08); WHITE BLOOD CELL COUNT,WBC 7.38 K/mm3 (4.23-9.07)
[2023-04-05 21:03] LABS: A/G RATIO 0.9 (1-2); ALANINE AMINOTRANSFERASE,ALT 66 U/L (16-63); ALBUMIN 3.8 g/dl (3.4-5.0); ALKALINE PHOSPHATASE 102 U/L (46-116); ANION GAP 15.5 (5-15); BILIRUBIN TOTAL 0.4 mg/dL (0.2-1.0); BLOOD UREA NITROGEN,BUN 14 mg/dL (7-18); BUN/CREATININE RATIO 12.7 (14-18); CALCIUM 8.9 mg/dL (8.5-10.1); CARBON DIOXIDE,CO2 26 mEq/L (21-32); CHLORIDE,CL 101 mEq/L (98-107); CREATININE 1.1 mg/dL (0.7-1.3); ESTIMATED GFR 76 mL/min (>60); GLUCOSE RANDOM 123 mg/dL (70-99); PROTEIN TOTAL,TP 8.2 g/dl (6.4-8.2); SODIUM,NA 138 mEq/L (136-145)
[2023-04-05 21:05] LABS: ASPARTATE AMNIOTRANSFERASE,AST 30 U/L (15-37); POTASSIUM,K 4.5 mEq/L (3.5-5.1)
[2023-04-05 21:07] LABS: INR 0.96; PROTHROMBIN TIME 10.3 SECONDS (9.7-12.0)
== END 2023-04-05 22:30 | disposition home or self-care (01) ==
LOC: JD.ED 20:27
DX: R53.1 Weakness (principal); R07.9 Chest pain, unspecified; Z88.0 Allergy status to penicillin; Z86.73 Personal history of transient ischemic attack (TIA), and cerebral infarction without residual deficits; Z91.013 Allergy to seafood; Z91.018 Allergy to other foods; Z88.5 Allergy status to narcotic agent; Z91.041 Radiographic dye allergy status; Z79.82 Long term (current) use of aspirin; Z79.899 Other long term (current) drug therapy
CPT/HCPCS: 36415; 70450; 70450-26; 71045; 71045-26; 80053; 82947; 84484; 85025; 85610; 93005; 99285

== ENCOUNTER 2023-05-13 16:43 | Emergency (ER) | payer MEDICARE, OTHER ==
[2023-05-13] MEDS ORDERED: Sodium Chloride 0.9% 10 ML Syringe FLUSH PRN (16:53)
[2023-05-13] MEDS ORDERED: Albuterol 0.083% 2.5 MG/3 ML Neb Soln NEB ONE (16:58)
[2023-05-13 17:34] LABS: BASOPHILS ABSOLUTE AUTO 0.04 K/mm3 (0.01-0.08); BASOPHILS PERCENT AUTO 0.5 % (0.1-1.2); EOSINOPHILS ABSOLUTE AUTO 0.21 K/mm3 (0.04-0.54); EOSINOPHILS PERCENT AUTO 2.5 (0.8-7.0); HEMATOCRIT 49.5 % (40.1-51.0); HEMOGLOBIN 17.5 gm/dl (13.7-17.5); IMMATURE GRAN ABSOLUTE AUTO 0.06 K/mm3 (0.00-0.10); IMMATURE GRAN PERCENT AUTO 0.7 % (<=1.0); LYMPHOCYTES ABSOLUTE AUTO 1.64 K/mm3 (1.32-3.57); LYMPHOCYTES PERCENT AUTO 19.3 % (21.8-53.1); MEAN CORPUSCULAR HEMOGLOBIN 32.6 pg (25.7-32.2); MEAN CORPUSCULAR HGB CONC 35.4 g/dl (32.2-35.5); MEAN CORPUSCULAR VOLUME 92.2 fl (79.0-92.2); MEAN PLATELET VOLUME 9.2 fl (9.4-12.3); MONOCYTES ABSOLUTE AUTO 0.97 K/mm3 (0.30-0.82); MONOCYTES PERCENT AUTO 11.4 % (5.3-12.2); NEUTROPHILS ABSOLUTE AUTO 5.57 K/mm3 (1.78-5.38); NEUTROPHILS PERCENT AUTO 65.6 % (34.0-67.9); PLATELET COUNT,PLT 281 K/mm3 (163-337); RED BLOOD CELL COUNT 5.37 M/mm3 (4.63-6.08); WHITE BLOOD CELL COUNT,WBC 8.49 K/mm3 (4.23-9.07)
[2023-05-13 17:50] LABS: INR 0.99; PROTHROMBIN TIME 10.6 SECONDS (9.7-12.0)
[2023-05-13 17:51] LABS: PTT,PARTIAL THROMBOPLSTIN TIME 26.1 SECONDS (21.7-31.4)
[2023-05-13] MEDS ORDERED: HYDROmorphone 1 MG/ML Syringe IM ONE (18:05)
[2023-05-13 18:07] LABS: A/G RATIO 0.9 (1-2); ALBUMIN 3.8 g/dl (3.4-5.0); ANION GAP 21.8 (5-15); BILIRUBIN TOTAL 0.3 mg/dL (0.2-1.0); BUN/CREATININE RATIO 9.1 (14-18); CALCIUM 9.7 mg/dL (8.5-10.1); CREATININE 1.1 mg/dL (0.7-1.3); EST CRCL DRUG DOSING (CG) 79.7 mL/min; MAGNESIUM 1.8 mg/dL (1.8-2.4); POTASSIUM,K 3.8 mEq/L (3.5-5.1); PROTEIN TOTAL,TP 8.2 g/dl (6.4-8.2)
== END 2023-05-13 19:48 | disposition home or self-care (01) ==
LOC: JD.ED 16:43
DX: J44.1 Chronic obstructive pulmonary disease with (acute) exacerbation (principal); I25.10 Atherosclerotic heart disease of native coronary artery without angina pectoris; I10 Essential (primary) hypertension; I25.2 Old myocardial infarction; E78.00 Pure hypercholesterolemia, unspecified; K21.9 Gastro-esophageal reflux disease without esophagitis; E11.9 Type 2 diabetes mellitus without complications; E66.9 Obesity, unspecified; M19.90 Unspecified osteoarthritis, unspecified site; Z86.73 Personal history of transient ischemic attack (TIA), and cerebral infarction without residual deficits; Z86.16 Personal history of COVID-19; Z87.891 Personal history of nicotine dependence; Z79.82 Long term (current) use of aspirin; Z79.01 Long term (current) use of anticoagulants; Z79.899 Other long term (current) drug therapy; Z91.013 Allergy to seafood; Z88.8 Allergy status to other drugs, medicaments and biological substances; Z91.041 Radiographic dye allergy status; Z88.0 Allergy status to penicillin; Z88.5 Allergy status to narcotic agent; Z88.1 Allergy status to other antibiotic agents; Z68.42 Body mass index [BMI] 45.0-49.9, adult
CPT/HCPCS: 36415; 70450; 71045; 80053; 83735; 83880; 84484; 85025; 85610; 85730; 93005; 94640; 96372; 99285; J1170; 93010; 99284; J7620-GY

== ENCOUNTER 2023-05-26 15:24 | Emergency (ER) | payer MEDICARE | END 2023-05-26 19:44 | disposition home or self-care (01) | LOC: JD.ED 15:24 | DX: S39.011A Strain of muscle, fascia and tendon of abdomen, initial encounter (principal); M54.50 Low back pain, unspecified; G89.29 Other chronic pain; L25.9 Unspecified contact dermatitis, unspecified cause; I25.10 Atherosclerotic heart disease of native coronary artery without angina pectoris; E78.00 Pure hypercholesterolemia, unspecified; I25.2 Old myocardial infarction; I10 Essential (primary) hypertension; J44.9 Chronic obstructive pulmonary disease, unspecified; E11.9 Type 2 diabetes mellitus without complications; E66.9 Obesity, unspecified; K21.9 Gastro-esophageal reflux disease without esophagitis; Z86.73 Personal history of transient ischemic attack (TIA), and cerebral infarction without residual deficits; Z86.16 Personal history of COVID-19; Z79.02 Long term (current) use of antithrombotics/antiplatelets; Z79.82 Long term (current) use of aspirin; Z79.899 Other long term (current) drug therapy; Z88.0 Allergy status to penicillin; Z88.1 Allergy status to other antibiotic agents; Z91.013 Allergy to seafood; Z88.5 Allergy status to narcotic agent; Z91.041 Radiographic dye allergy status; Z88.8 Allergy status to other drugs, medicaments and biological substances; Z91.048 Other nonmedicinal substance allergy status; Z68.41 Body mass index [BMI] 40.0-44.9, adult | CPT/HCPCS: 99283 ==

== ENCOUNTER 2023-07-20 14:38 | Emergency (ER) | payer MEDICAID, MEDICARE ==
[2023-07-20 15:28] LABS: BASOPHILS ABSOLUTE AUTO 0.1 K/mm3 (0.0-0.2); BASOPHILS PERCENT AUTO 0.8 % (0.0-1.0); EOSINOPHILS ABSOLUTE AUTO 0.3 K/mm3 (0.0-0.4); EOSINOPHILS PERCENT AUTO 3.6 % (0.0-6.0); HEMATOCRIT 49.3 % (42.0-52.0); HEMOGLOBIN 17.3 gm/dl (14.0-18.0); IMMATURE GRAN ABSOLUTE AUTO 0.05 K/mm3 (0.00-0.05); IMMATURE GRAN PERCENT AUTO 0.6 % (0.0-0.4); LYMPHOCYTES ABSOLUTE AUTO 1.4 K/mm3 (1.0-4.8); LYMPHOCYTES PERCENT AUTO 15.7 % (24.0-44.0); MEAN CORPUSCULAR HEMOGLOBIN 32.5 pg (28.0-32.0); MEAN CORPUSCULAR HGB CONC 35.1 g/dl (32.0-36.0); MEAN CORPUSCULAR VOLUME 92.5 fl (83.0-99.0); MEAN PLATELET VOLUME 8.6 fl (9.4-12.4); MONOCYTES ABSOLUTE AUTO 0.8 K/mm3 (0.0-0.8); MONOCYTES PERCENT AUTO 8.7 % (0.0-8.0); NEUTROPHILS ABSOLUTE AUTO 6.1 K/mm3 (1.8-7.7); NEUTROPHILS PERCENT AUTO 70.6 % (41.0-71.0); PLATELET COUNT,PLT 229 K/mm3 (150-400); RED BLOOD CELL COUNT 5.33 M/mm3 (4.52-5.90); WHITE BLOOD CELL COUNT,WBC 8.62 K/mm3 (3.9-11.3)
[2023-07-20 15:49] LABS: INR 0.99; PROTHROMBIN TIME 10.6 SECONDS (9.7-12.0)
[2023-07-20 15:50] LABS: D-DIMER QUANTITATIVE 0.22 mg/L (0.19-0.50)
[2023-07-20 15:57] LABS: A/G RATIO 0.8 (1-2); ALANINE AMINOTRANSFERASE,ALT 70 U/L (16-63); ALBUMIN 3.6 g/dl (3.4-5.0); ALKALINE PHOSPHATASE 112 U/L (46-116); ANION GAP 15.7 (5-15); ASPARTATE AMNIOTRANSFERASE,AST 30 U/L (15-37); BILIRUBIN TOTAL 0.4 mg/dL (0.2-1.0); BLOOD UREA NITROGEN,BUN 14 mg/dL (7-18); BUN/CREATININE RATIO 12.7 (14-18); CARBON DIOXIDE,CO2 25 mEq/L (21-32); CHLORIDE,CL 97 mEq/L (98-107); CREATININE 1.1 mg/dL (0.7-1.3); ESTIMATED GFR 76 mL/min (>60); GLUCOSE RANDOM 138 mg/dL (70-99); MAGNESIUM 1.9 mg/dL (1.8-2.4); POTASSIUM,K 3.7 mEq/L (3.5-5.1); PROTEIN TOTAL,TP 7.9 g/dl (6.4-8.2); SODIUM,NA 134 mEq/L (136-145)
[2023-07-20 15:58] LABS: TROPONIN I HIGH SENSITIVITY < 4 pg/mL (<=76)
[2023-07-20] MEDS ORDERED: Alum Hydrox/Mag Hydrox/Simeth 30 ML, Lidocaine 2% 15 ML PO ONE ×2 (16:15)
[2023-07-20] MEDS ORDERED: Ketorolac 30 MG/ML SDV IM ONE (16:59)
== END 2023-07-20 17:13 | disposition home or self-care (01) ==
LOC: JD.ED 14:38
DX: R07.89 Other chest pain (principal); I25.10 Atherosclerotic heart disease of native coronary artery without angina pectoris; E78.00 Pure hypercholesterolemia, unspecified; I25.2 Old myocardial infarction; I10 Essential (primary) hypertension; J44.9 Chronic obstructive pulmonary disease, unspecified; G47.30 Sleep apnea, unspecified; K21.9 Gastro-esophageal reflux disease without esophagitis; E11.9 Type 2 diabetes mellitus without complications; E66.9 Obesity, unspecified; Z68.41 Body mass index [BMI] 40.0-44.9, adult; Z86.16 Personal history of COVID-19; Z86.73 Personal history of transient ischemic attack (TIA), and cerebral infarction without residual deficits; Z87.891 Personal history of nicotine dependence; Z91.018 Allergy to other foods; Z88.8 Allergy status to other drugs, medicaments and biological substances; Z88.5 Allergy status to narcotic agent; Z88.0 Allergy status to penicillin; Z88.1 Allergy status to other antibiotic agents; Z91.041 Radiographic dye allergy status; Z79.82 Long term (current) use of aspirin; Z79.02 Long term (current) use of antithrombotics/antiplatelets
CPT/HCPCS: 36415; 71045; 80053; 83735; 84484; 85025; 85379; 85610; 93005; 96372; 99285; A9270; J1885; 93010; 99284

== ENCOUNTER 2023-10-09 11:49 | Emergency (ER) | payer MEDICARE ==
[2023-10-09] MEDS ORDERED: Sodium Chloride 0.9% 10 ML Syringe FLUSH PRN (12:03)
[2023-10-09] MEDS ORDERED: Ondansetron 4 MG/2 ML SDV IVPUSH ONE (12:15)
[2023-10-09] MEDS ORDERED: Ondansetron 4 MG Tab.DIS PO PRN (12:53)
[2023-10-09 13:33] LABS: BASOPHILS ABSOLUTE AUTO 0.1 K/mm3 (0.0-0.2); EOSINOPHILS ABSOLUTE AUTO 0.2 K/mm3 (0.0-0.4); HEMATOCRIT 47.4 % (42.0-52.0); HEMOGLOBIN 16.6 gm/dl (14.0-18.0); IMMATURE GRAN ABSOLUTE AUTO 0.05 K/mm3 (0.00-0.05); IMMATURE GRAN PERCENT AUTO 0.6 % (0.0-0.4); LYMPHOCYTES ABSOLUTE AUTO 1.4 K/mm3 (1.0-4.8); LYMPHOCYTES PERCENT AUTO 17.2 % (24.0-44.0); MEAN CORPUSCULAR HEMOGLOBIN 31.8 pg (28.0-32.0); MEAN CORPUSCULAR VOLUME 90.8 fl (83.0-99.0); MEAN PLATELET VOLUME 9.2 fl (9.4-12.4); MONOCYTES ABSOLUTE AUTO 0.8 K/mm3 (0.0-0.8); MONOCYTES PERCENT AUTO 9.9 % (0.0-8.0); NEUTROPHILS ABSOLUTE AUTO 5.8 K/mm3 (1.8-7.7); NEUTROPHILS PERCENT AUTO 69.3 % (41.0-71.0); PLATELET COUNT,PLT 207 K/mm3 (150-400); RED BLOOD CELL COUNT 5.22 M/mm3 (4.52-5.90); WHITE BLOOD CELL COUNT,WBC 8.32 K/mm3 (3.9-11.3)
[2023-10-09 13:56] LABS: A/G RATIO 0.8 (1-2); ALBUMIN 3.5 g/dl (3.4-5.0); ANION GAP 13.8 (5-15); BILIRUBIN TOTAL 0.3 mg/dL (0.2-1.0); BUN/CREATININE RATIO 11.7 (14-18); CALCIUM 9.1 mg/dL (8.5-10.1); CREATININE 1.2 mg/dL (0.7-1.3); EST CRCL DRUG DOSING (CG) 73.06 mL/min; MAGNESIUM 1.9 mg/dL (1.8-2.4); POTASSIUM,K 3.8 mEq/L (3.5-5.1); PROTEIN TOTAL,TP 7.7 g/dl (6.4-8.2)
== END 2023-10-09 14:10 | disposition home or self-care (01) ==
LOC: JD.ED 11:49
DX: R07.89 Other chest pain (principal); I25.10 Atherosclerotic heart disease of native coronary artery without angina pectoris; I10 Essential (primary) hypertension; I25.2 Old myocardial infarction; E78.00 Pure hypercholesterolemia, unspecified; J44.9 Chronic obstructive pulmonary disease, unspecified; K21.9 Gastro-esophageal reflux disease without esophagitis; M19.90 Unspecified osteoarthritis, unspecified site; E11.9 Type 2 diabetes mellitus without complications; E66.9 Obesity, unspecified; Z86.16 Personal history of COVID-19; Z88.0 Allergy status to penicillin; Z88.5 Allergy status to narcotic agent; Z88.1 Allergy status to other antibiotic agents; Z88.8 Allergy status to other drugs, medicaments and biological substances; Z91.041 Radiographic dye allergy status; Z79.899 Other long term (current) drug therapy; Z79.02 Long term (current) use of antithrombotics/antiplatelets
CPT/HCPCS: 36415; 71046; 80053; 83735; 84484; 85025; 93005; 99285; A9270

== ENCOUNTER 2023-11-12 16:37 | Emergency (ER) | payer MEDICARE ==
[2023-11-12] MEDS: Sodium Chloride 0.9% 1,000 ML IV SCH (17:43)
[2023-11-12] MEDS: Sodium Chloride 0.9% 10 ML Syringe FLUSH PRN (17:45)
[2023-11-12 17:48] LABS: BASOPHILS ABSOLUTE AUTO 0.1 K/mm3 (0.0-0.2); BASOPHILS PERCENT AUTO 0.9 % (0.0-1.0); EOSINOPHILS ABSOLUTE AUTO 0.2 K/mm3 (0.0-0.4); EOSINOPHILS PERCENT AUTO 2.2 % (0.0-6.0); HEMATOCRIT 48.5 % (42.0-52.0); HEMOGLOBIN 16.9 gm/dl (14.0-18.0); IMMATURE GRAN ABSOLUTE AUTO 0.08 K/mm3 (0.00-0.05); LYMPHOCYTES ABSOLUTE AUTO 1.4 K/mm3 (1.0-4.8); LYMPHOCYTES PERCENT AUTO 18.4 % (24.0-44.0); MEAN CORPUSCULAR HEMOGLOBIN 32.4 pg (28.0-32.0); MEAN CORPUSCULAR HGB CONC 34.8 g/dl (32.0-36.0); MEAN CORPUSCULAR VOLUME 92.9 fl (83.0-99.0); MONOCYTES ABSOLUTE AUTO 0.8 K/mm3 (0.0-0.8); MONOCYTES PERCENT AUTO 9.9 % (0.0-8.0); NEUTROPHILS ABSOLUTE AUTO 5.2 K/mm3 (1.8-7.7); NEUTROPHILS PERCENT AUTO 67.6 % (41.0-71.0); PLATELET COUNT,PLT 235 K/mm3 (150-400); RED BLOOD CELL COUNT 5.22 M/mm3 (4.52-5.90); WHITE BLOOD CELL COUNT,WBC 7.66 K/mm3 (3.9-11.3)
[2023-11-12 18:13] LABS: A/G RATIO 0.9 (1-2); ALBUMIN 3.7 g/dl (3.4-5.0); ANION GAP 13.8 (5-15); BILIRUBIN TOTAL 0.3 mg/dL (0.2-1.0); CALCIUM 8.8 mg/dL (8.5-10.1); EST CRCL DRUG DOSING (CG) 87.67 mL/min; POTASSIUM,K 3.8 mEq/L (3.5-5.1)
[2023-11-12] MEDS: LORazepam 2 MG/ML SDV IVPUSH ONE (19:26)
[2023-11-12] MEDS: Labetalol 100 MG/20 ML MDV IVPUSH ONE (20:30)
== END 2023-11-12 23:00 | disposition home or self-care (01) ==
LOC: JD.ED 16:37
DX: R51.9 Headache, unspecified (principal); E11.69 Type 2 diabetes mellitus with other specified complication; I10 Essential (primary) hypertension; E78.00 Pure hypercholesterolemia, unspecified; I25.10 Atherosclerotic heart disease of native coronary artery without angina pectoris; I25.2 Old myocardial infarction; J44.9 Chronic obstructive pulmonary disease, unspecified; Z79.01 Long term (current) use of anticoagulants; K21.9 Gastro-esophageal reflux disease without esophagitis; Z79.82 Long term (current) use of aspirin; Z79.899 Other long term (current) drug therapy; Z88.1 Allergy status to other antibiotic agents; Z88.0 Allergy status to penicillin; Z88.5 Allergy status to narcotic agent; Z88.8 Allergy status to other drugs, medicaments and biological substances; Z91.013 Allergy to seafood; Z91.041 Radiographic dye allergy status; Z95.5 Presence of coronary angioplasty implant and graft; E66.9 Obesity, unspecified; Z68.39 Body mass index [BMI] 39.0-39.9, adult
CPT/HCPCS: 36415; 70450; 80053; 81003; 82800; 82947; 83735; 83930; 84484; 85025; 93005; 96361; 96374; 99284; J2060; J3490; J7030

== ENCOUNTER 2023-11-18 20:43 | Emergency (ER) | payer MEDICARE ==
[2023-11-18 21:02] LABS: BASOPHILS ABSOLUTE AUTO 0.1 K/mm3 (0.0-0.2); BASOPHILS PERCENT AUTO 0.7 % (0.0-1.0); EOSINOPHILS ABSOLUTE AUTO 0.2 K/mm3 (0.0-0.4); EOSINOPHILS PERCENT AUTO 2.4 % (0.0-6.0); HEMATOCRIT 46.8 % (42.0-52.0); HEMOGLOBIN 16.5 gm/dl (14.0-18.0); IMMATURE GRAN ABSOLUTE AUTO 0.06 K/mm3 (0.00-0.05); IMMATURE GRAN PERCENT AUTO 0.7 % (0.0-0.4); LYMPHOCYTES ABSOLUTE AUTO 1.6 K/mm3 (1.0-4.8); LYMPHOCYTES PERCENT AUTO 19.7 % (24.0-44.0); MEAN CORPUSCULAR HEMOGLOBIN 32.4 pg (28.0-32.0); MEAN CORPUSCULAR HGB CONC 35.3 g/dl (32.0-36.0); MEAN CORPUSCULAR VOLUME 91.8 fl (83.0-99.0); MONOCYTES ABSOLUTE AUTO 0.8 K/mm3 (0.0-0.8); MONOCYTES PERCENT AUTO 9.7 % (0.0-8.0); NEUTROPHILS ABSOLUTE AUTO 5.5 K/mm3 (1.8-7.7); NEUTROPHILS PERCENT AUTO 66.8 % (41.0-71.0); PLATELET COUNT,PLT 243 K/mm3 (150-400); WHITE BLOOD CELL COUNT,WBC 8.18 K/mm3 (3.9-11.3)
[2023-11-18 21:17] LABS: APPEARANCE,URINE CLEAR (Clear); BILIRUBIN,URINE NEGATIVE (Negative); COLOR,URINE YELLOW (Yellow); GLUCOSE,URINE 2+ (Negative); KETONES,URINE NEGATIVE (Negative); LEUKOCYTE ESTERASE,URINE NEGATIVE (Negative); NITRITE,URINE NEGATIVE (Negative); OCCULT BLOOD,URINE NEGATIVE (Negative); PROTEIN,URINE NEGATIVE (Negative); UROBILINOGEN,URINE 0.2 (0.2-1.0)
[2023-11-18 21:29] LABS: A/G RATIO 0.9 (1-2); ALANINE AMINOTRANSFERASE,ALT 38 U/L (16-63); ALBUMIN 3.6 g/dl (3.4-5.0); ALKALINE PHOSPHATASE 112 U/L (46-116); ANION GAP 15.9 (5-15); ASPARTATE AMNIOTRANSFERASE,AST 2 U/L (15-37); BILIRUBIN TOTAL 0.2 mg/dL (0.2-1.0); BLOOD UREA NITROGEN,BUN 19 mg/dL (7-18); CALCIUM 8.7 mg/dL (8.5-10.1); CARBON DIOXIDE,CO2 23 mEq/L (21-32); CHLORIDE,CL 100 mEq/L (98-107); EST CRCL DRUG DOSING (CG) 87.67 mL/min; ESTIMATED GFR 86 mL/min (>60); GLUCOSE RANDOM 224 mg/dL (70-99); MAGNESIUM 1.9 mg/dL (1.8-2.4); POTASSIUM,K 3.9 mEq/L (3.5-5.1); PROTEIN TOTAL,TP 7.7 g/dl (6.4-8.2); SODIUM,NA 135 mEq/L (136-145)
[2023-11-18 21:31] LABS: TROPONIN I HIGH SENSITIVITY < 4 pg/mL (<=76)
[2023-11-18 21:32] LABS: BACTERIA,URINE RARE /hpf (FEW); EPITHELIAL CELLS,URINE 0-5 /hpf (0-5); MUCUS,URINE RARE /hpf (FEW); RBC,URINE 0-5 /hpf (0-5); WBC,URINE 0-5 /hpf (0-5)
[2023-11-18] MEDS: Diclofenac Sodium 1% Gel 100 GM Tube TOP ONE (21:51)
== END 2023-11-18 22:00 | disposition home or self-care (01) ==
LOC: JD.ED 20:43
DX: R07.89 Other chest pain (principal); M94.0 Chondrocostal junction syndrome [Tietze]; E11.9 Type 2 diabetes mellitus without complications; M19.90 Unspecified osteoarthritis, unspecified site; I25.10 Atherosclerotic heart disease of native coronary artery without angina pectoris; E78.00 Pure hypercholesterolemia, unspecified; I10 Essential (primary) hypertension; I25.2 Old myocardial infarction; J44.9 Chronic obstructive pulmonary disease, unspecified; K21.9 Gastro-esophageal reflux disease without esophagitis; E66.01 Morbid (severe) obesity due to excess calories; Z68.41 Body mass index [BMI] 40.0-44.9, adult; Z87.891 Personal history of nicotine dependence; Z86.16 Personal history of COVID-19; Z95.5 Presence of coronary angioplasty implant and graft; Z86.73 Personal history of transient ischemic attack (TIA), and cerebral infarction without residual deficits; Z79.02 Long term (current) use of antithrombotics/antiplatelets; Z79.82 Long term (current) use of aspirin; Z79.899 Other long term (current) drug therapy; Z88.8 Allergy status to other drugs, medicaments and biological substances; Z91.013 Allergy to seafood; Z91.041 Radiographic dye allergy status; Z88.0 Allergy status to penicillin; Z88.5 Allergy status to narcotic agent; Z88.1 Allergy status to other antibiotic agents
CPT/HCPCS: 36415; 71046; 80053; 81001; 82947; 83735; 84484; 85025; 93005; 99285; A9270

== ENCOUNTER 2024-01-06 11:34 | Emergency (ER) | payer MEDICARE ==
[2024-01-06] MEDS ORDERED: Sodium Chloride 0.9% 10 ML Syringe FLUSH PRN (11:47)
[2024-01-06] MEDS: Albuterol/Ipratropium 3.0-0.5 MG/3 ML Neb Soln NEB ONE (12:25)
[2024-01-06 12:30] LABS: HEMATOCRIT 44.8 % (42.0-52.0); HEMOGLOBIN 16.1 gm/dl (14.0-18.0); MEAN CORPUSCULAR HEMOGLOBIN 33.1 pg (28.0-32.0); MEAN CORPUSCULAR HGB CONC 35.9 g/dl (32.0-36.0); MEAN PLATELET VOLUME 9.3 fl (9.4-12.4); PLATELET COUNT,PLT 211 K/mm3 (150-400); RED BLOOD CELL COUNT 4.87 M/mm3 (4.52-5.90); WHITE BLOOD CELL COUNT,WBC 8.04 K/mm3 (3.9-11.3)
[2024-01-06 12:52] LABS: INR 0.94; PROTHROMBIN TIME 10.1 SECONDS (9.7-12.0)
[2024-01-06 13:00] LABS: A/G RATIO 0.8 (1-2); ALBUMIN 3.3 g/dl (3.4-5.0); ALKALINE PHOSPHATASE 132 U/L (46-116); BLOOD UREA NITROGEN,BUN 17 mg/dL (7-18); BUN/CREATININE RATIO 15.5 (14-18); C-REACTIVE PROTEIN 0.18 mg/dL (<0.30); CARBON DIOXIDE,CO2 21 mEq/L (21-32); CREATININE 1.1 mg/dL (0.7-1.3); EST CRCL DRUG DOSING (CG) 78.69 mL/min; ESTIMATED GFR 76 mL/min (>60)
[2024-01-06 13:06] LABS: LACTIC ACID 2.3 mmol/L (0.4-2.0)
[2024-01-06 13:10] LABS: CORONAVIRUS COVID-19 NAA NEGATIVE (NEGATIVE); INFLUENZA A NAA NEGATIVE (NEGATIVE); RESPIRATORY SYNCYTIAL VIR NAA NEGATIVE (NEGATIVE)
[2024-01-06 13:17] LABS: ANION GAP 19.2 (5-15); CHLORIDE,CL 101 mEq/L (98-107); SODIUM,NA 137 mEq/L (136-145)
[2024-01-06 13:19] LABS: BILIRUBIN TOTAL 0.5 mg/dL (0.2-1.0); CALCIUM 8.5 mg/dL (8.5-10.1); GLUCOSE RANDOM 279 mg/dL (70-99); POTASSIUM,K 4.2 mEq/L (3.5-5.1)
[2024-01-06] MEDS ORDERED: Ketorolac 30 MG/ML SDV IVPUSH ONE (13:37)
[2024-01-06] MEDS ORDERED: HYDROmorphone 0.5 MG/0.5 ML Syringe IVPUSH ONE (13:38)
[2024-01-06 14:01] LABS: BAND PERCENT MAN 2 % (0-10); BASOPHILS PERCENT MAN 0 (0.2-1.2); EOSINOPHILS PERCENT MAN 3 % (0.8-7.0); LYMPHOCYTES % ATYPICAL MANUAL 0 %; LYMPHOCYTES PERCENT MAN 14 % (20-40); MONOCYTES PERCENT MAN 1 % (2-10); PLATELET COUNT ESTIMATE ADEQUATE
[2024-01-06] MEDS: HYDROmorphone 1 MG/ML Syringe IM ONE (14:12)
[2024-01-06] MEDS: Ketorolac 30 MG/ML SDV IM ONE (14:14)
[2024-01-06] MEDS: predniSONE 20 MG Tab PO ONE (14:15)
[2024-01-06] MEDS: Doxycycline Monohydrate 100 MG Cap PO ONE (14:15)
== END 2024-01-06 14:15 | disposition home or self-care (01) ==
LOC: JD.ED 11:34
DX: J44.1 Chronic obstructive pulmonary disease with (acute) exacerbation (principal); B34.9 Viral infection, unspecified; I10 Essential (primary) hypertension; E78.00 Pure hypercholesterolemia, unspecified; I25.10 Atherosclerotic heart disease of native coronary artery without angina pectoris; Z95.5 Presence of coronary angioplasty implant and graft; Z79.82 Long term (current) use of aspirin; Z79.899 Other long term (current) drug therapy; Z91.041 Radiographic dye allergy status; Z88.8 Allergy status to other drugs, medicaments and biological substances; Z88.5 Allergy status to narcotic agent; Z88.1 Allergy status to other antibiotic agents; Z88.0 Allergy status to penicillin
CPT/HCPCS: 0241U; 36415; 71046; 80053; 83605; 84484; 85007; 85027; 85379; 85610; 86140; 87040; 93005; 94640; 96372; 99285; A9270; J1170; J1885; J7512; 93010; 99284; J7620-GY

== ENCOUNTER 2024-01-07 19:59 | Emergency (ER) | payer MEDICARE ==
[2024-01-07 20:40] LABS: BASOPHILS PERCENT AUTO 0.5 % (0.0-1.0); EOSINOPHILS PERCENT AUTO 0.5 % (0.0-6.0); HEMATOCRIT 45.2 % (42.0-52.0); HEMOGLOBIN 15.8 gm/dl (14.0-18.0); IMMATURE GRAN ABSOLUTE AUTO 0.04 K/mm3 (0.00-0.05); IMMATURE GRAN PERCENT AUTO 0.5 % (0.0-0.4); LYMPHOCYTES ABSOLUTE AUTO 1.3 K/mm3 (1.0-4.8); LYMPHOCYTES PERCENT AUTO 16.7 % (24.0-44.0); MEAN CORPUSCULAR HEMOGLOBIN 31.8 pg (28.0-32.0); MEAN CORPUSCULAR VOLUME 90.9 fl (83.0-99.0); MEAN PLATELET VOLUME 9.4 fl (9.4-12.4); MONOCYTES ABSOLUTE AUTO 0.5 K/mm3 (0.0-0.8); MONOCYTES PERCENT AUTO 6.7 % (0.0-8.0); NEUTROPHILS PERCENT AUTO 75.1 % (41.0-71.0); PLATELET COUNT,PLT 233 K/mm3 (150-400); RED BLOOD CELL COUNT 4.97 M/mm3 (4.52-5.90); WHITE BLOOD CELL COUNT,WBC 8.03 K/mm3 (3.9-11.3)
[2024-01-07] MEDS: Aspirin 81 MG Tab.Chew PO ONE (20:55)
[2024-01-07 20:58] LABS: A/G RATIO 0.9 (1-2); ALANINE AMINOTRANSFERASE,ALT 31 U/L (16-63); ALBUMIN 3.8 g/dl (3.4-5.0); ALKALINE PHOSPHATASE 130 U/L (46-116); ANION GAP 15.9 (5-15); ASPARTATE AMNIOTRANSFERASE,AST 1 U/L (15-37); BILIRUBIN TOTAL 0.3 mg/dL (0.2-1.0); BLOOD UREA NITROGEN,BUN 12 mg/dL (7-18); CALCIUM 8.9 mg/dL (8.5-10.1); CARBON DIOXIDE,CO2 24 mEq/L (21-32); CHLORIDE,CL 97 mEq/L (98-107); CREATININE 1.2 mg/dL (0.7-1.3); EST CRCL DRUG DOSING (CG) 72.13 mL/min; ESTIMATED GFR 68 mL/min (>60); POTASSIUM,K 3.9 mEq/L (3.5-5.1); PROTEIN TOTAL,TP 7.9 g/dl (6.4-8.2); SODIUM,NA 133 mEq/L (136-145)
[2024-01-07 21:17] LABS: GLUCOSE RANDOM 454 mg/dL (70-99); TROPONIN I HIGH SENSITIVITY < 4 pg/mL (<=76)
== END 2024-01-07 21:56 | disposition home or self-care (01) ==
LOC: JD.ED 19:59
DX: R07.89 Other chest pain (principal); E11.65 Type 2 diabetes mellitus with hyperglycemia; I25.10 Atherosclerotic heart disease of native coronary artery without angina pectoris; I11.0 Hypertensive heart disease with heart failure; I50.9 Heart failure, unspecified; I25.2 Old myocardial infarction; J44.89 Other specified chronic obstructive pulmonary disease; K21.9 Gastro-esophageal reflux disease without esophagitis; E66.9 Obesity, unspecified; Z88.1 Allergy status to other antibiotic agents; Z88.0 Allergy status to penicillin; Z88.5 Allergy status to narcotic agent; Z91.018 Allergy to other foods; Z91.013 Allergy to seafood; Z88.8 Allergy status to other drugs, medicaments and biological substances; Z91.041 Radiographic dye allergy status; Z79.899 Other long term (current) drug therapy; Z79.82 Long term (current) use of aspirin; Z79.51 Long term (current) use of inhaled steroids; Z86.19 Personal history of other infectious and parasitic diseases; Z86.16 Personal history of COVID-19; Z90.49 Acquired absence of other specified parts of digestive tract; Z95.5 Presence of coronary angioplasty implant and graft; Z68.41 Body mass index [BMI] 40.0-44.9, adult
CPT/HCPCS: 36415; 71046; 80053; 84484; 85025; 93005; 99285; A9270; 93010; 99284

== ENCOUNTER 2024-01-09 10:35 | Emergency (ER) | payer MEDICARE ==
[2024-01-09] MEDS: Aspirin 81 MG Tab.Chew PO ONE (11:53)
[2024-01-09] MEDS: Sodium Chloride 0.9% 10 ML Syringe FLUSH PRN (12:30)
[2024-01-09 12:32] LABS: BASOPHILS ABSOLUTE AUTO 0.1 K/mm3 (0.0-0.2); BASOPHILS PERCENT AUTO 0.7 % (0.0-1.0); EOSINOPHILS ABSOLUTE AUTO 0.1 K/mm3 (0.0-0.4); EOSINOPHILS PERCENT AUTO 1.3 % (0.0-6.0); HEMATOCRIT 44.5 % (42.0-52.0); HEMOGLOBIN 15.7 gm/dl (14.0-18.0); LYMPHOCYTES ABSOLUTE AUTO 1.2 K/mm3 (1.0-4.8); LYMPHOCYTES PERCENT AUTO 11.4 % (24.0-44.0); MEAN CORPUSCULAR HGB CONC 35.3 g/dl (32.0-36.0); MEAN CORPUSCULAR VOLUME 90.6 fl (83.0-99.0); MONOCYTES ABSOLUTE AUTO 0.7 K/mm3 (0.0-0.8); MONOCYTES PERCENT AUTO 6.9 % (0.0-8.0); NEUTROPHILS ABSOLUTE AUTO 8.2 K/mm3 (1.8-7.7); NEUTROPHILS PERCENT AUTO 78.7 % (41.0-71.0); PLATELET COUNT,PLT 223 K/mm3 (150-400); RED BLOOD CELL COUNT 4.91 M/mm3 (4.52-5.90)
[2024-01-09 12:53] LABS: INR 0.95; PROTHROMBIN TIME 10.2 SECONDS (9.7-12.0)
[2024-01-09 13:03] LABS: A/G RATIO 0.9 (1-2); ALANINE AMINOTRANSFERASE,ALT 40 U/L (16-63); ALBUMIN 3.5 g/dl (3.4-5.0); ALKALINE PHOSPHATASE 121 U/L (46-116); ANION GAP 15.8 (5-15); ASPARTATE AMNIOTRANSFERASE,AST 8 U/L (15-37); BILIRUBIN TOTAL 0.3 mg/dL (0.2-1.0); BLOOD UREA NITROGEN,BUN 18 mg/dL (7-18); BUN/CREATININE RATIO 16.4 (14-18); CALCIUM 8.6 mg/dL (8.5-10.1); CARBON DIOXIDE,CO2 24 mEq/L (21-32); CHLORIDE,CL 98 mEq/L (98-107); CREATININE 1.1 mg/dL (0.7-1.3); EST CRCL DRUG DOSING (CG) 78.69 mL/min; ESTIMATED GFR 76 mL/min (>60); GLUCOSE RANDOM 287 mg/dL (70-99); MAGNESIUM 1.8 mg/dL (1.8-2.4); POTASSIUM,K 3.8 mEq/L (3.5-5.1); PROTEIN TOTAL,TP 7.4 g/dl (6.4-8.2); SODIUM,NA 134 mEq/L (136-145)
[2024-01-09 13:12] LABS: TROPONIN I HIGH SENSITIVITY < 4 pg/mL (<=76)
[2024-01-09] MEDS: Alum Hydrox/Mag Hydrox/Simeth 30 ML, Lidocaine 2% 15 ML PO ONE (13:41)
[2024-01-09] MEDS: Sodium Chloride 0.9% 1,000 ML IV ONE (15:25)
== END 2024-01-09 14:50 | disposition home or self-care (01) ==
LOC: JD.ED 10:35
DX: E11.65 Type 2 diabetes mellitus with hyperglycemia (principal); R10.13 Epigastric pain; I25.10 Atherosclerotic heart disease of native coronary artery without angina pectoris; E78.00 Pure hypercholesterolemia, unspecified; I10 Essential (primary) hypertension; I25.2 Old myocardial infarction; J44.89 Other specified chronic obstructive pulmonary disease; K21.9 Gastro-esophageal reflux disease without esophagitis; E11.9 Type 2 diabetes mellitus without complications; E66.9 Obesity, unspecified; Z86.19 Personal history of other infectious and parasitic diseases; Z86.16 Personal history of COVID-19; Z90.49 Acquired absence of other specified parts of digestive tract; Z79.82 Long term (current) use of aspirin; Z79.899 Other long term (current) drug therapy; Z88.1 Allergy status to other antibiotic agents; Z88.0 Allergy status to penicillin; Z91.013 Allergy to seafood; Z88.5 Allergy status to narcotic agent; Z91.041 Radiographic dye allergy status; Z88.8 Allergy status to other drugs, medicaments and biological substances; Z79.51 Long term (current) use of inhaled steroids; Z68.41 Body mass index [BMI] 40.0-44.9, adult
CPT/HCPCS: 36415; 71045; 80053; 82947; 83735; 83880; 84484; 85025; 85610; 93005; 99285; A9270; J3490

== ENCOUNTER 2024-02-14 20:13 | Emergency (ER) | payer MEDICARE, MEDICAID ==
[2024-02-14 23:47] LABS: BASOPHILS ABSOLUTE AUTO 0.1 K/mm3 (0.0-0.2); BASOPHILS PERCENT AUTO 0.9 % (0.0-1.0); EOSINOPHILS ABSOLUTE AUTO 0.2 K/mm3 (0.0-0.4); EOSINOPHILS PERCENT AUTO 2.8 % (0.0-6.0); HEMOGLOBIN 15.7 gm/dl (14.0-18.0); IMMATURE GRAN ABSOLUTE AUTO 0.03 K/mm3 (0.00-0.05); IMMATURE GRAN PERCENT AUTO 0.4 % (0.0-0.4); LYMPHOCYTES ABSOLUTE AUTO 2.1 K/mm3 (1.0-4.8); LYMPHOCYTES PERCENT AUTO 27.3 % (24.0-44.0); MEAN CORPUSCULAR HEMOGLOBIN 31.2 pg (28.0-32.0); MEAN CORPUSCULAR HGB CONC 34.1 g/dl (32.0-36.0); MEAN CORPUSCULAR VOLUME 91.3 fl (83.0-99.0); MEAN PLATELET VOLUME 9.3 fl (9.4-12.4); MONOCYTES PERCENT AUTO 12.9 % (0.0-8.0); NEUTROPHILS ABSOLUTE AUTO 4.2 K/mm3 (1.8-7.7); NEUTROPHILS PERCENT AUTO 55.7 % (41.0-71.0); PLATELET COUNT,PLT 229 K/mm3 (150-400); RED BLOOD CELL COUNT 5.04 M/mm3 (4.52-5.90); WHITE BLOOD CELL COUNT,WBC 7.57 K/mm3 (3.9-11.3)
[2024-02-15] MEDS: Lactated Ringers 1,000 ML IV ONE (00:05)
[2024-02-15 00:11] LABS: A/G RATIO 0.9 (1-2); ALBUMIN 3.6 g/dl (3.4-5.0); BILIRUBIN TOTAL 0.3 mg/dL (0.2-1.0); BUN/CREATININE RATIO 13.3 (14-18); CALCIUM 9.4 mg/dL (8.5-10.1); CREATININE 1.2 mg/dL (0.7-1.3); EST CRCL DRUG DOSING (CG) 72.13 mL/min; PROTEIN TOTAL,TP 7.7 g/dl (6.4-8.2)
[2024-02-15 00:13] LABS: APPEARANCE,URINE CLEAR (Clear); BILIRUBIN,URINE NEGATIVE (Negative); COLOR,URINE DARK YELLOW (Yellow); GLUCOSE,URINE 2+ (Negative); KETONES,URINE NEGATIVE (Negative); LEUKOCYTE ESTERASE,URINE NEGATIVE (Negative); NITRITE,URINE NEGATIVE (Negative); OCCULT BLOOD,URINE NEGATIVE (Negative); PROTEIN,URINE NEGATIVE (Negative); UROBILINOGEN,URINE 0.2 (0.2-1.0)
[2024-02-15 01:14] LABS: CORONAVIRUS COVID-19 NAA NEGATIVE (NEGATIVE); INFLUENZA A NAA NEGATIVE (NEGATIVE); RESPIRATORY SYNCYTIAL VIR NAA NEGATIVE (NEGATIVE)
[2024-02-15] MEDS: Aluminum Hydroxide/Magnesium Hydroxide/Simethicone Susp 30 ML Cup PO ONE (02:07)
[2024-02-15] MEDS: Famotidine 20 MG/2 ML SDV IVPUSH ONE (02:07)
[2024-02-15] MEDS: Iopamidol 612 MG/ML 100 ML Bottle IVPUSH ONE (02:27)
[2024-02-15] MEDS: diphenhydrAMINE 50 MG/ML SDV IVPUSH ONE (02:30)
[2024-02-15] MEDS: Sodium Chloride 0.9% 10 ML Syringe FLUSH PRN (03:06)
== END 2024-02-15 04:45 | disposition home or self-care (01) ==
LOC: JD.ED 20:13
DX: K44.9 Diaphragmatic hernia without obstruction or gangrene (principal); R53.1 Weakness; R73.09 Other abnormal glucose; I10 Essential (primary) hypertension; I25.2 Old myocardial infarction; E78.00 Pure hypercholesterolemia, unspecified; I25.10 Atherosclerotic heart disease of native coronary artery without angina pectoris; J44.89 Other specified chronic obstructive pulmonary disease; E11.9 Type 2 diabetes mellitus without complications; Z88.1 Allergy status to other antibiotic agents; Z88.0 Allergy status to penicillin; Z88.5 Allergy status to narcotic agent; Z91.013 Allergy to seafood; Z88.6 Allergy status to analgesic agent; Z91.041 Radiographic dye allergy status; Z88.8 Allergy status to other drugs, medicaments and biological substances; Z79.02 Long term (current) use of antithrombotics/antiplatelets; Z79.899 Other long term (current) drug therapy; Z79.51 Long term (current) use of inhaled steroids; Z86.73 Personal history of transient ischemic attack (TIA), and cerebral infarction without residual deficits; Z86.16 Personal history of COVID-19; Z90.49 Acquired absence of other specified parts of digestive tract
CPT/HCPCS: 0241U; 36415; 74177; 80053; 81003; 82947; 83690; 84484; 85025; 93005; 96361; 96374; 96375; 99285; A9270; J1200; J3490; J7120; Q9967; 93010; 99284

== ENCOUNTER 2024-02-22 18:16 | Emergency (ER) | payer MEDICARE, MEDICAID ==
[2024-02-22] MEDS: Iopamidol 755 Mg/ML 100 ML Bottle IVPUSH ONE (18:52)
[2024-02-22 18:53] LABS: BASOPHILS ABSOLUTE AUTO 0.1 K/mm3 (0.0-0.2); BASOPHILS PERCENT AUTO 0.9 % (0.0-1.0); EOSINOPHILS ABSOLUTE AUTO 0.2 K/mm3 (0.0-0.4); EOSINOPHILS PERCENT AUTO 2.8 % (0.0-6.0); HEMATOCRIT 46.4 % (42.0-52.0); IMMATURE GRAN ABSOLUTE AUTO 0.04 K/mm3 (0.00-0.05); IMMATURE GRAN PERCENT AUTO 0.5 % (0.0-0.4); LYMPHOCYTES ABSOLUTE AUTO 1.8 K/mm3 (1.0-4.8); LYMPHOCYTES PERCENT AUTO 24.2 % (24.0-44.0); MEAN CORPUSCULAR HEMOGLOBIN 31.7 pg (28.0-32.0); MEAN CORPUSCULAR HGB CONC 34.5 g/dl (32.0-36.0); MEAN CORPUSCULAR VOLUME 91.9 fl (83.0-99.0); MEAN PLATELET VOLUME 9.6 fl (9.4-12.4); MONOCYTES ABSOLUTE AUTO 0.7 K/mm3 (0.0-0.8); MONOCYTES PERCENT AUTO 8.9 % (0.0-8.0); NEUTROPHILS ABSOLUTE AUTO 4.7 K/mm3 (1.8-7.7); NEUTROPHILS PERCENT AUTO 62.7 % (41.0-71.0); PLATELET COUNT,PLT 254 K/mm3 (150-400); RED BLOOD CELL COUNT 5.05 M/mm3 (4.52-5.90); WHITE BLOOD CELL COUNT,WBC 7.49 K/mm3 (3.9-11.3)
[2024-02-22] MEDS ORDERED: Sodium Chloride 0.9% 100 ML IV SCH (19:00)
[2024-02-22 19:23] LABS: A/G RATIO 0.8 (1-2); ALBUMIN 3.6 g/dl (3.4-5.0); BILIRUBIN TOTAL 0.3 mg/dL (0.2-1.0); BUN/CREATININE RATIO 12.9 (14-18); CALCIUM 9.2 mg/dL (8.5-10.1); CREATININE 1.4 mg/dL (0.7-1.3); EST CRCL DRUG DOSING (CG) 61.83 mL/min; PROTEIN TOTAL,TP 7.9 g/dl (6.4-8.2)
[2024-02-22] MEDS: Aspirin 81 MG Tab.Chew PO ONE (19:24)
[2024-02-22] MEDS: diphenhydrAMINE 50 MG/ML SDV IVPUSH ONE (19:25)
[2024-02-22] MEDS: methylPREDNISolone Sodium Succinate 125 MG/2 ML SDV IVPUSH ONE (19:25)
[2024-02-22] MEDS: Sodium Chloride 0.9% 500 ML IV SCH (19:34)
[2024-02-22] MEDS: Nitroglycerin 0.4 MG Tab.SL SL PRN (19:34)
[2024-02-22] MEDS: Labetalol 100 MG/20 ML MDV IVPUSH ONE (20:26)
[2024-02-22] MEDS: Sodium Chloride 0.9% 10 ML Syringe FLUSH PRN (20:47)
== END 2024-02-22 21:49 | disposition home or self-care (01) ==
LOC: JD.ED 18:16
DX: R07.89 Other chest pain (principal); I10 Essential (primary) hypertension; I25.2 Old myocardial infarction; I25.10 Atherosclerotic heart disease of native coronary artery without angina pectoris; K21.9 Gastro-esophageal reflux disease without esophagitis; J45.909 Unspecified asthma, uncomplicated; M19.90 Unspecified osteoarthritis, unspecified site; E78.00 Pure hypercholesterolemia, unspecified; E66.9 Obesity, unspecified; E11.9 Type 2 diabetes mellitus without complications; Z88.1 Allergy status to other antibiotic agents; Z91.013 Allergy to seafood; Z88.5 Allergy status to narcotic agent; Z88.8 Allergy status to other drugs, medicaments and biological substances; Z91.041 Radiographic dye allergy status; Z79.82 Long term (current) use of aspirin; Z79.899 Other long term (current) drug therapy; Z90.49 Acquired absence of other specified parts of digestive tract; Z87.891 Personal history of nicotine dependence; Z68.41 Body mass index [BMI] 40.0-44.9, adult
CPT/HCPCS: 36415; 71275; 80053; 83880; 84484; 85025; 93005; 96361; 96374; 96375; 99285; A9270; J1200; J1921; J2930; J3490; J7030; Q9967; 93010; 99283

== ENCOUNTER 2024-03-30 17:02 | Emergency (ER) | payer MEDICAID, MEDICARE ==
[2024-03-30 18:35] LABS: BASOPHILS ABSOLUTE AUTO 0.1 K/mm3 (0.0-0.2); BASOPHILS PERCENT AUTO 0.8 % (0.0-1.0); EOSINOPHILS ABSOLUTE AUTO 0.1 K/mm3 (0.0-0.4); EOSINOPHILS PERCENT AUTO 1.9 % (0.0-6.0); HEMATOCRIT 45.3 % (42.0-52.0); HEMOGLOBIN 15.6 gm/dl (14.0-18.0); IMMATURE GRAN ABSOLUTE AUTO 0.04 K/mm3 (0.00-0.05); IMMATURE GRAN PERCENT AUTO 0.5 % (0.0-0.4); LYMPHOCYTES ABSOLUTE AUTO 0.9 K/mm3 (1.0-4.8); LYMPHOCYTES PERCENT AUTO 12.6 % (24.0-44.0); MEAN CORPUSCULAR HEMOGLOBIN 31.5 pg (28.0-32.0); MEAN CORPUSCULAR HGB CONC 34.4 g/dl (32.0-36.0); MEAN CORPUSCULAR VOLUME 91.3 fl (83.0-99.0); MEAN PLATELET VOLUME 9.4 fl (9.4-12.4); MONOCYTES ABSOLUTE AUTO 0.6 K/mm3 (0.0-0.8); MONOCYTES PERCENT AUTO 8.4 % (0.0-8.0); NEUTROPHILS ABSOLUTE AUTO 5.6 K/mm3 (1.8-7.7); NEUTROPHILS PERCENT AUTO 75.8 % (41.0-71.0); PLATELET COUNT,PLT 196 K/mm3 (150-400); RED BLOOD CELL COUNT 4.96 M/mm3 (4.52-5.90); WHITE BLOOD CELL COUNT,WBC 7.39 K/mm3 (3.9-11.3)
[2024-03-30] MEDS: HYDROmorphone 1 MG/ML Syringe IM ONE (18:58)
[2024-03-30] MEDS: HYDROmorphone 1 MG/ML Syringe IVPUSH ONE (18:59)
[2024-03-30 19:01] LABS: A/G RATIO 0.9 (1-2); ALBUMIN 3.5 g/dl (3.4-5.0); BILIRUBIN TOTAL 0.3 mg/dL (0.2-1.0); BUN/CREATININE RATIO 14.4 (14-18); CALCIUM 8.9 mg/dL (8.5-10.1); CREATININE 0.9 mg/dL (0.7-1.3); EST CRCL DRUG DOSING (CG) 96.18 mL/min; PROTEIN TOTAL,TP 7.3 g/dl (6.4-8.2)
[2024-03-30] MEDS: Ondansetron 4 MG Tab.DIS PO ONE (19:50)
== END 2024-03-30 19:55 | disposition home or self-care (01) ==
LOC: JD.ED 17:02
DX: K04.7 Periapical abscess without sinus (principal); R07.89 Other chest pain; L08.9 Local infection of the skin and subcutaneous tissue, unspecified; E78.00 Pure hypercholesterolemia, unspecified; I10 Essential (primary) hypertension; J45.909 Unspecified asthma, uncomplicated; K21.9 Gastro-esophageal reflux disease without esophagitis; E11.9 Type 2 diabetes mellitus without complications; E66.9 Obesity, unspecified; Z86.16 Personal history of COVID-19; Z90.49 Acquired absence of other specified parts of digestive tract; Z79.899 Other long term (current) drug therapy; Z79.891 Long term (current) use of opiate analgesic; Z79.82 Long term (current) use of aspirin; Z91.013 Allergy to seafood; Z88.5 Allergy status to narcotic agent; Z88.8 Allergy status to other drugs, medicaments and biological substances; Z88.1 Allergy status to other antibiotic agents; Z88.0 Allergy status to penicillin
CPT/HCPCS: 36415; 71045; 71045-26; 80053; 84484; 85025; 93005; 96372; 99285; A9270-GY; J1170

== ENCOUNTER 2024-04-07 00:12 | Emergency (ER) | payer MEDICARE ==
[2024-04-07 01:08] LABS: BASOPHILS ABSOLUTE AUTO 0.1 K/mm3 (0.0-0.2); BASOPHILS PERCENT AUTO 0.7 % (0.0-1.0); EOSINOPHILS ABSOLUTE AUTO 0.2 K/mm3 (0.0-0.4); EOSINOPHILS PERCENT AUTO 2.2 % (0.0-6.0); HEMATOCRIT 50.8 % (42.0-52.0); HEMOGLOBIN 17.5 gm/dl (14.0-18.0); IMMATURE GRAN ABSOLUTE AUTO 0.07 K/mm3 (0.00-0.05); IMMATURE GRAN PERCENT AUTO 0.7 % (0.0-0.4); LYMPHOCYTES ABSOLUTE AUTO 1.6 K/mm3 (1.0-4.8); LYMPHOCYTES PERCENT AUTO 16.3 % (24.0-44.0); MEAN CORPUSCULAR HEMOGLOBIN 32.1 pg (28.0-32.0); MEAN CORPUSCULAR HGB CONC 34.4 g/dl (32.0-36.0); MEAN CORPUSCULAR VOLUME 93.2 fl (83.0-99.0); MEAN PLATELET VOLUME 9.9 fl (9.4-12.4); MONOCYTES PERCENT AUTO 10.4 % (0.0-8.0); NEUTROPHILS ABSOLUTE AUTO 6.9 K/mm3 (1.8-7.7); NEUTROPHILS PERCENT AUTO 69.7 % (41.0-71.0); PLATELET COUNT,PLT 245 K/mm3 (150-400); RED BLOOD CELL COUNT 5.45 M/mm3 (4.52-5.90); WHITE BLOOD CELL COUNT,WBC 9.94 K/mm3 (3.9-11.3)
[2024-04-07 01:09] LABS: APPEARANCE,URINE CLEAR (Clear); BILIRUBIN,URINE NEGATIVE (Negative); COLOR,URINE YELLOW (Yellow); GLUCOSE,URINE 2+ (Negative); KETONES,URINE TRACE (Negative); LEUKOCYTE ESTERASE,URINE NEGATIVE (Negative); NITRITE,URINE NEGATIVE (Negative); OCCULT BLOOD,URINE NEGATIVE (Negative); PROTEIN,URINE TRACE (Negative); UROBILINOGEN,URINE 0.2 (0.2-1.0)
[2024-04-07 01:15] LABS: BACTERIA,URINE RARE /hpf (FEW); EPITHELIAL CELLS,URINE 0-5 /hpf (0-5); RBC,URINE NOT SEEN /hpf (0-5); WBC,URINE 0-5 /hpf (0-5)
[2024-04-07 01:16] LABS: MUCUS,URINE NOT SEEN /hpf (FEW)
[2024-04-07 01:34] LABS: A/G RATIO 0.9 (1-2); ALANINE AMINOTRANSFERASE,ALT 59 U/L (16-63); ALBUMIN 4.1 g/dl (3.4-5.0); ALKALINE PHOSPHATASE 133 U/L (46-116); ANION GAP 14.2 (5-15); BILIRUBIN TOTAL 0.5 mg/dL (0.2-1.0); BLOOD UREA NITROGEN,BUN 18 mg/dL (7-18); CALCIUM 9.5 mg/dL (8.5-10.1); CARBON DIOXIDE,CO2 25 mEq/L (21-32); CHLORIDE,CL 96 mEq/L (98-107); CREATININE 1.2 mg/dL (0.7-1.3); EST CRCL DRUG DOSING (CG) 70.06 mL/min; ESTIMATED GFR 68 mL/min (>60); GLUCOSE RANDOM 312 mg/dL (70-99); MAGNESIUM 1.9 mg/dL (1.8-2.4); PROTEIN TOTAL,TP 8.6 g/dl (6.4-8.2); SODIUM,NA 131 mEq/L (136-145); TROPONIN I HIGH SENSITIVITY 5 pg/mL (<=76)
[2024-04-07 01:39] LABS: POTASSIUM,K 4.2 mEq/L (3.5-5.1)
[2024-04-07] MEDS: ClonazePAM 0.5 MG Tab PO ONE (02:03)
[2024-04-07] MEDS: Prochlorperazine 10 MG/2 ML SDV IM ONE (02:03)
== END 2024-04-07 02:07 | disposition home or self-care (01) ==
LOC: JD.ED 00:12
DX: R07.89 Other chest pain (principal); F41.9 Anxiety disorder, unspecified; E11.65 Type 2 diabetes mellitus with hyperglycemia; I10 Essential (primary) hypertension; E78.00 Pure hypercholesterolemia, unspecified; J44.9 Chronic obstructive pulmonary disease, unspecified; E66.9 Obesity, unspecified; Z90.49 Acquired absence of other specified parts of digestive tract; Z68.42 Body mass index [BMI] 45.0-49.9, adult; Z79.899 Other long term (current) drug therapy; Z79.52 Long term (current) use of systemic steroids; Z88.8 Allergy status to other drugs, medicaments and biological substances; Z91.041 Radiographic dye allergy status; Z88.1 Allergy status to other antibiotic agents; Z91.013 Allergy to seafood; Z88.0 Allergy status to penicillin; Z88.5 Allergy status to narcotic agent
CPT/HCPCS: 36415; 80053; 81001; 83735; 84484; 85025; 93005; 96372; 99285; A9270; J0780; 93010; 99284

== ENCOUNTER 2024-04-19 01:06 | Emergency (ER) | payer MEDICAID, MEDICARE ==
[2024-04-19] MEDS: Sodium Chloride 0.9% 500 ML IV ONE (01:41)
[2024-04-19] MEDS: methylPREDNISolone Sodium Succinate 125 MG/2 ML SDV IVPUSH ONE (01:41)
[2024-04-19 01:46] LABS: BASOPHILS ABSOLUTE AUTO 0.1 K/mm3 (0.0-0.2); BASOPHILS PERCENT AUTO 0.8 % (0.0-1.0); EOSINOPHILS ABSOLUTE AUTO 0.2 K/mm3 (0.0-0.4); EOSINOPHILS PERCENT AUTO 2.7 % (0.0-6.0); HEMATOCRIT 46.5 % (42.0-52.0); HEMOGLOBIN 16.2 gm/dl (14.0-18.0); IMMATURE GRAN ABSOLUTE AUTO 0.07 K/mm3 (0.00-0.05); IMMATURE GRAN PERCENT AUTO 0.9 % (0.0-0.4); LYMPHOCYTES ABSOLUTE AUTO 1.9 K/mm3 (1.0-4.8); LYMPHOCYTES PERCENT AUTO 25.1 % (24.0-44.0); MEAN CORPUSCULAR HEMOGLOBIN 31.7 pg (28.0-32.0); MEAN CORPUSCULAR HGB CONC 34.8 g/dl (32.0-36.0); MEAN PLATELET VOLUME 10.3 fl (9.4-12.4); MONOCYTES ABSOLUTE AUTO 0.6 K/mm3 (0.0-0.8); MONOCYTES PERCENT AUTO 8.1 % (0.0-8.0); NEUTROPHILS ABSOLUTE AUTO 4.7 K/mm3 (1.8-7.7); NEUTROPHILS PERCENT AUTO 62.4 % (41.0-71.0); PLATELET COUNT,PLT 238 K/mm3 (150-400); RED BLOOD CELL COUNT 5.11 M/mm3 (4.52-5.90); WHITE BLOOD CELL COUNT,WBC 7.52 K/mm3 (3.9-11.3)
[2024-04-19] MEDS: Sodium Chloride 0.9% 10 ML Syringe FLUSH PRN (01:46)
[2024-04-19 01:48] LABS: APPEARANCE,URINE CLEAR (Clear); BILIRUBIN,URINE NEGATIVE (Negative); COLOR,URINE LIGHT YELLOW (Yellow); GLUCOSE,URINE 2+ (Negative); KETONES,URINE NEGATIVE (Negative); LEUKOCYTE ESTERASE,URINE NEGATIVE (Negative); NITRITE,URINE NEGATIVE (Negative); OCCULT BLOOD,URINE NEGATIVE (Negative); PROTEIN,URINE NEGATIVE (Negative); UROBILINOGEN,URINE 0.2 (0.2-1.0)
[2024-04-19] MEDS: Albuterol/Ipratropium 3.0-0.5 MG/3 ML Neb Soln NEB SCH (02:01)
[2024-04-19 02:47] LABS: A/G RATIO 0.9 (1-2); ALBUMIN 3.4 g/dl (3.4-5.0); ANION GAP 17.7 (5-15); BILIRUBIN TOTAL 0.3 mg/dL (0.2-1.0); BUN/CREATININE RATIO 13.8 (14-18); CALCIUM 8.7 mg/dL (8.5-10.1); CREATININE 1.3 mg/dL (0.7-1.3); EST CRCL DRUG DOSING (CG) 66.58 mL/min; PROTEIN TOTAL,TP 7.3 g/dl (6.4-8.2)
[2024-04-19 02:47] LABS: CORONAVIRUS COVID-19 NAA NEGATIVE (NEGATIVE); INFLUENZA A NAA NEGATIVE (NEGATIVE); RESPIRATORY SYNCYTIAL VIR NAA NEGATIVE (NEGATIVE)
[2024-04-19 02:49] LABS: POTASSIUM,K 3.7 mEq/L (3.5-5.1)
[2024-04-19] MEDS ORDERED: methylPREDNISolone Sodium Succinate 125 MG/2 ML SDV IVPUSH ONE (03:28)
[2024-04-19] MEDS: diphenhydrAMINE 50 MG/ML SDV IVPUSH ONE (04:02)
[2024-04-19] MEDS: Iopamidol 612 MG/ML 30 ML SDV IVPUSH ONE (04:22)
[2024-04-19] MEDS: Ondansetron 4 MG/2 ML SDV IVPUSH ONE (05:42)
[2024-04-19] MEDS: Insulin Regular, Human 100 Units/ML 10 ML Vial IV ONE (05:43)
[2024-04-19] MEDS: Insulin Regular, Human 100 Units/ML 10 ML Vial ONE (05:50)
[2024-04-19] MEDS: Insulin Regular, Human 100 Units/ML 3 ML Vial IV ONE (05:50)
== END 2024-04-19 06:53 | disposition home or self-care (01) ==
LOC: JD.ED 01:06
DX: J44.1 Chronic obstructive pulmonary disease with (acute) exacerbation (principal); E11.65 Type 2 diabetes mellitus with hyperglycemia; R10.12 Left upper quadrant pain; I10 Essential (primary) hypertension; I25.10 Atherosclerotic heart disease of native coronary artery without angina pectoris; I25.2 Old myocardial infarction; E78.00 Pure hypercholesterolemia, unspecified; K21.9 Gastro-esophageal reflux disease without esophagitis; E66.9 Obesity, unspecified; Z86.16 Personal history of COVID-19; Z90.49 Acquired absence of other specified parts of digestive tract; Z68.41 Body mass index [BMI] 40.0-44.9, adult; Z79.82 Long term (current) use of aspirin; Z79.899 Other long term (current) drug therapy; Z79.84 Long term (current) use of oral hypoglycemic drugs; Z88.1 Allergy status to other antibiotic agents; Z91.041 Radiographic dye allergy status; Z91.013 Allergy to seafood; Z88.8 Allergy status to other drugs, medicaments and biological substances; Z88.0 Allergy status to penicillin; Z88.5 Allergy status to narcotic agent; Z91.048 Other nonmedicinal substance allergy status
CPT/HCPCS: 0241U; 36415; 71045; 74177; 80053; 81003; 82947; 83690; 83880; 84484; 85025; 85379; 93005; 94640; 96361; 96374; 96375; 99285; J1200; J1815; J2405; J2919; J3490; J7030; Q9967; J7620-GY

== ENCOUNTER 2024-04-20 21:22 | Emergency (ER) | payer MEDICARE ==
[2024-04-20 22:30] LABS: BASOPHILS ABSOLUTE AUTO 0.1 K/mm3 (0.0-0.2); BASOPHILS PERCENT AUTO 0.7 % (0.0-1.0); EOSINOPHILS ABSOLUTE AUTO 0.1 K/mm3 (0.0-0.4); EOSINOPHILS PERCENT AUTO 0.9 % (0.0-6.0); HEMATOCRIT 43.4 % (42.0-52.0); HEMOGLOBIN 15.1 gm/dl (14.0-18.0); IMMATURE GRAN ABSOLUTE AUTO 0.13 K/mm3 (0.00-0.05); IMMATURE GRAN PERCENT AUTO 1.5 % (0.0-0.4); LYMPHOCYTES PERCENT AUTO 22.6 % (24.0-44.0); MEAN CORPUSCULAR HEMOGLOBIN 32.3 pg (28.0-32.0); MEAN CORPUSCULAR HGB CONC 34.8 g/dl (32.0-36.0); MEAN CORPUSCULAR VOLUME 92.7 fl (83.0-99.0); MEAN PLATELET VOLUME 9.8 fl (9.4-12.4); MONOCYTES ABSOLUTE AUTO 0.7 K/mm3 (0.0-0.8); MONOCYTES PERCENT AUTO 8.2 % (0.0-8.0); NEUTROPHILS ABSOLUTE AUTO 5.7 K/mm3 (1.8-7.7); NEUTROPHILS PERCENT AUTO 66.1 % (41.0-71.0); PLATELET COUNT,PLT 219 K/mm3 (150-400); RED BLOOD CELL COUNT 4.68 M/mm3 (4.52-5.90); WHITE BLOOD CELL COUNT,WBC 8.67 K/mm3 (3.9-11.3)
[2024-04-20] MEDS: Sodium Chloride 0.9% 1,000 ML IV ONE (22:33)
[2024-04-20] MEDS: Famotidine 20 MG Tab PO ONE (22:33)
[2024-04-20] MEDS: Alum Hydrox/Mag Hydrox/Simeth 30 ML, Lidocaine 2% 15 ML PO ONE (22:33)
[2024-04-20 22:41] LABS: A/G RATIO 0.9 (1-2); ALBUMIN 3.3 g/dl (3.4-5.0); ANION GAP 15.6 (5-15); BILIRUBIN TOTAL 0.4 mg/dL (0.2-1.0); BUN/CREATININE RATIO 25.6 (14-18); CALCIUM 8.7 mg/dL (8.5-10.1); CREATININE 0.9 mg/dL (0.7-1.3); EST CRCL DRUG DOSING (CG) 96.18 mL/min; MAGNESIUM 1.9 mg/dL (1.8-2.4); PROTEIN TOTAL,TP 7.2 g/dl (6.4-8.2)
[2024-04-20 22:46] LABS: POTASSIUM,K 3.6 mEq/L (3.5-5.1)
[2024-04-20] MEDS: hydrOXYzine HCl 50 MG Tab PO ONE (22:47)
[2024-04-20 23:26] LABS: BASE EXCESS VENOUS -2.2 (-4.0-2.0); BICARBONATE,VENOUS 21.8 meq/L (22-26); O2 SATURATION VENOUS 83.3; PH,VENOUS 7.39 (7.30-7.40)
[2024-04-20] MEDS ORDERED: Insulin Regular, Human 100 Units/ML 3 ML Vial IV ONE (23:52)
[2024-04-21] MEDS: Albuterol 0.083% 2.5 MG/3 ML Neb Soln NEB ONE (00:07)
[2024-04-21] MEDS: Sodium Chloride 0.9% 10 ML Syringe FLUSH PRN (00:08)
[2024-04-21] MEDS: Insulin Regular, Human 100 Units/ML 10 ML Vial IV ONE (00:27)
[2024-04-21] MEDS: Hydrochlorothiazide 12.5 MG Cap PO ONE (02:39)
[2024-04-21] MEDS: Losartan 50 MG Tab PO ONE (02:40)
[2024-04-21] MEDS: LORazepam 2 MG/ML SDV IVPUSH ONE (03:08)
[2024-04-21] MEDS: Insulin Regular, Human 100 Units/ML 3 ML Vial IV ONE (03:19)
[2024-04-21] MEDS ORDERED: hydrOXYzine HCl 50 MG Tab PO ONE (22:39)
== END 2024-04-21 04:55 | disposition home or self-care (01) ==
LOC: JD.ED 21:22
DX: F41.9 Anxiety disorder, unspecified (principal); R07.9 Chest pain, unspecified; E11.65 Type 2 diabetes mellitus with hyperglycemia; I10 Essential (primary) hypertension; I25.10 Atherosclerotic heart disease of native coronary artery without angina pectoris; I25.2 Old myocardial infarction; E78.00 Pure hypercholesterolemia, unspecified; J44.9 Chronic obstructive pulmonary disease, unspecified; K21.9 Gastro-esophageal reflux disease without esophagitis; E66.9 Obesity, unspecified; Z87.891 Personal history of nicotine dependence; Z90.49 Acquired absence of other specified parts of digestive tract; Z68.42 Body mass index [BMI] 45.0-49.9, adult; Z79.82 Long term (current) use of aspirin; Z79.899 Other long term (current) drug therapy; Z79.84 Long term (current) use of oral hypoglycemic drugs; Z91.013 Allergy to seafood; Z91.041 Radiographic dye allergy status; Z88.8 Allergy status to other drugs, medicaments and biological substances; Z88.0 Allergy status to penicillin; Z88.1 Allergy status to other antibiotic agents; Z88.5 Allergy status to narcotic agent
CPT/HCPCS: 36415; 71045; 80053; 82803; 82947; 83735; 83930; 84484; 85025; 93005; 94640; 96361; 96374; 99285; A9270; J1815; J2060; J3490; J7030; 93010; 99284; J7620-GY

== ENCOUNTER 2024-05-08 02:04 | Emergency (ER) | payer MEDICARE ==
[2024-05-08 02:27] LABS: HEMATOCRIT 45.6 % (42.0-52.0); HEMOGLOBIN 15.4 gm/dl (14.0-18.0); MEAN CORPUSCULAR HEMOGLOBIN 31.4 pg (28.0-32.0); MEAN CORPUSCULAR HGB CONC 33.8 g/dl (32.0-36.0); MEAN CORPUSCULAR VOLUME 93.1 fl (83.0-99.0); MEAN PLATELET VOLUME 9.3 fl (9.4-12.4); PLATELET COUNT,PLT 184 K/mm3 (150-400); WHITE BLOOD CELL COUNT,WBC 6.51 K/mm3 (3.9-11.3)
[2024-05-08] MEDS: Albuterol/Ipratropium 3.0-0.5 MG/3 ML Neb Soln NEB ONE (02:42)
[2024-05-08] MEDS: Sodium Chloride 0.9% 500 ML IV ONE (02:49)
[2024-05-08] MEDS: Sodium Chloride 0.9% 10 ML Syringe FLUSH PRN (02:50)
[2024-05-08 02:57] LABS: LACTIC ACID 1.8 mmol/L (0.4-2.0)
[2024-05-08 03:01] LABS: A/G RATIO 0.8 (1-2); ALBUMIN 3.2 g/dl (3.4-5.0); ANION GAP 16.2 (5-15); BILIRUBIN TOTAL 0.5 mg/dL (0.2-1.0); BUN/CREATININE RATIO 7.7 (14-18); CALCIUM 8.3 mg/dL (8.5-10.1); CREATININE 1.3 mg/dL (0.7-1.3); EST CRCL DRUG DOSING (CG) 66.58 mL/min; PROTEIN TOTAL,TP 7.4 g/dl (6.4-8.2)
[2024-05-08 03:02] LABS: INR 0.95; PROTHROMBIN TIME 10.1 SECONDS (9.7-12.0)
[2024-05-08 03:03] LABS: POTASSIUM,K 4.2 mEq/L (3.5-5.1)
[2024-05-08 03:43] LABS: BAND PERCENT MAN 0 % (0-10); BASOPHILS PERCENT MAN 0 (0.2-1.2); EOSINOPHILS PERCENT MAN 3 % (0.8-7.0); LYMPHOCYTES % ATYPICAL MANUAL 0 %; LYMPHOCYTES PERCENT MAN 21 % (20-40); MONOCYTES PERCENT MAN 9 % (2-10); PLATELET COUNT ESTIMATE ADEQUATE
[2024-05-08 03:50] LABS: CORONAVIRUS COVID-19 NAA POSITIVE (NEGATIVE); INFLUENZA A NAA NEGATIVE (NEGATIVE); RESPIRATORY SYNCYTIAL VIR NAA NEGATIVE (NEGATIVE)
[2024-05-08] MEDS: Benzonatate 100 MG Cap PO ONE (04:45)
== END 2024-05-08 05:20 | disposition home or self-care (01) ==
LOC: JD.ED 02:04
DX: U07.1 COVID-19 (principal); E11.65 Type 2 diabetes mellitus with hyperglycemia; I25.10 Atherosclerotic heart disease of native coronary artery without angina pectoris; E78.00 Pure hypercholesterolemia, unspecified; I10 Essential (primary) hypertension; J45.909 Unspecified asthma, uncomplicated; K21.9 Gastro-esophageal reflux disease without esophagitis; E66.9 Obesity, unspecified; Z68.27 Body mass index [BMI] 27.0-27.9, adult; Z90.49 Acquired absence of other specified parts of digestive tract; Z91.018 Allergy to other foods; Z88.5 Allergy status to narcotic agent; Z88.0 Allergy status to penicillin; Z88.8 Allergy status to other drugs, medicaments and biological substances
CPT/HCPCS: 0241U; 36415; 71045; 80053; 83605; 83880; 84484; 85007; 85027; 85610; 85730; 87040; 93005; 94640; 96360; 99285; A9270; J3490; J7030; J7620-GY

== ENCOUNTER 2024-05-25 14:21 | Observation (INO) | payer MEDICARE ==
[2024-05-25] MEDS: Sodium Chloride 0.9% 10 ML Syringe FLUSH PRN (14:54)
[2024-05-25 14:55] LABS: BASOPHILS ABSOLUTE AUTO 0.1 K/mm3 (0.0-0.2); BASOPHILS PERCENT AUTO 0.7 % (0.0-1.0); EOSINOPHILS ABSOLUTE AUTO 0.1 K/mm3 (0.0-0.4); EOSINOPHILS PERCENT AUTO 0.7 % (0.0-6.0); HEMATOCRIT 49.3 % (42.0-52.0); IMMATURE GRAN ABSOLUTE AUTO 0.07 K/mm3 (0.00-0.05); IMMATURE GRAN PERCENT AUTO 0.7 % (0.0-0.4); LYMPHOCYTES PERCENT AUTO 18.2 % (24.0-44.0); MEAN CORPUSCULAR HEMOGLOBIN 31.7 pg (28.0-32.0); MEAN CORPUSCULAR HGB CONC 34.9 g/dl (32.0-36.0); MEAN PLATELET VOLUME 9.4 fl (9.4-12.4); MONOCYTES PERCENT AUTO 9.3 % (0.0-8.0); NEUTROPHILS ABSOLUTE AUTO 7.6 K/mm3 (1.8-7.7); NEUTROPHILS PERCENT AUTO 70.4 % (41.0-71.0); RED BLOOD CELL COUNT 5.42 M/mm3 (4.52-5.90); WHITE BLOOD CELL COUNT,WBC 10.74 K/mm3 (3.9-11.3)
[2024-05-25 15:17] LABS: A/G RATIO 0.9 (1-2); ALBUMIN 3.6 g/dl (3.4-5.0); ANION GAP 15.9 (5-15); BILIRUBIN TOTAL 0.7 mg/dL (0.2-1.0); C-REACTIVE PROTEIN 1.9 mg/dL (<0.30); CALCIUM 8.9 mg/dL (8.5-10.1); EST CRCL DRUG DOSING (CG) 86.56 mL/min; PROTEIN TOTAL,TP 7.8 g/dl (6.4-8.2)
[2024-05-25] MEDS ORDERED: Naloxone 0.4 MG/ML SDV IVPUSH PRN (15:17)
[2024-05-25 15:20] LABS: POTASSIUM,K 3.9 mEq/L (3.5-5.1)
[2024-05-25 15:23] LABS: LACTIC ACID 1.5 mmol/L (0.4-2.0)
[2024-05-25 15:26] LABS: HEMOGLOBIN 17.2 gm/dl (14.0-18.0); PLATELET COUNT,PLT 280 K/mm3 (150-400)
[2024-05-25 15:33] LABS: APPEARANCE,URINE CLEAR (Clear); BILIRUBIN,URINE NEGATIVE (Negative); COLOR,URINE YELLOW (Yellow); GLUCOSE,URINE 2+ (Negative); KETONES,URINE NEGATIVE (Negative); LEUKOCYTE ESTERASE,URINE NEGATIVE (Negative); NITRITE,URINE NEGATIVE (Negative); OCCULT BLOOD,URINE NEGATIVE (Negative); PROTEIN,URINE NEGATIVE (Negative); UROBILINOGEN,URINE 0.2 (0.2-1.0)
[2024-05-25] MEDS: Sodium Chloride 0.9% 1,000 ML IV SCH ×2 (15:37→22:10)
[2024-05-25] MEDS: Ondansetron 4 MG/2 ML SDV IVPUSH ONE (15:39)
[2024-05-25] MEDS: Pantoprazole 40 MG Vial IVPUSH ONE (15:39)
[2024-05-25] MEDS: fentaNYL 100 MCG/2 ML SDV IVPUSH ONE (15:40)
[2024-05-25] MEDS: diphenhydrAMINE 50 MG/ML SDV IVPUSH ONE (15:59)
[2024-05-25] MEDS: methylPREDNISolone Sodium Succinate 125 MG/2 ML SDV IVPUSH ONE (15:59)
[2024-05-25] MEDS: Iopamidol 612 MG/ML 100 ML Bottle IVPUSH ONE (16:39)
[2024-05-25] MEDS: Insulin Lispro 100 Unit/ML 3 ML KwikPen SUBCUT SCH (22:09)
[2024-05-25] MEDS: Acetaminophen 325 MG Tab PO PRN (23:18)
[2024-05-25] MEDS: Metoclopramide 10 MG/2 ML SDV IVPUSH ONE (23:21)
[2024-05-25] MEDS: Iopamidol 612 MG/ML 30 ML SDV IV ONE (23:21)
[2024-05-26] MEDS: Enoxaparin 40 MG/0.4 ML Syringe SUBCUT SCH (10:11)
[2024-05-26] MEDS: Ondansetron 4 MG Tab.DIS PO ONE (10:11)
[2024-05-26] MEDS ORDERED: Sennosides/Docusate Sodium 50-8.6 MG Tab PO PRN (10:12)
[2024-05-26] MEDS ORDERED: Betamethasone Valerate 0.1% Crm 15 GM Tube TOP PRN (10:15)
[2024-05-26] MEDS ORDERED: Albuterol 0.083% 2.5 MG/3 ML Neb Soln INH PRN (10:15)
[2024-05-26] MEDS ORDERED: ClonazePAM 1 MG Tab PO PRN (10:15)
[2024-05-26] MEDS: Losartan 50 MG Tab PO SCH (10:57)
[2024-05-26] MEDS: Hydrochlorothiazide 12.5 MG Cap PO SCH (10:57)
[2024-05-26] MEDS: Aspirin 81 MG Tab.Chew PO SCH (10:57)
[2024-05-26] MEDS: Clopidogrel 75 MG Tab PO SCH (10:58)
[2024-05-26] MEDS: Pantoprazole 40 MG Tab.CR PO SCH (10:58)
[2024-05-26] MEDS: Empagliflozin 10 MG Tab PO SCH (10:58)
[2024-05-26] MEDS: carBAMazepine 200 MG Tab PO SCH (10:58)
[2024-05-26] MEDS: Carvedilol 12.5 MG Tab PO SCH (10:58)
[2024-05-26] MEDS ORDERED: Clotrimazole 1% Crm 30 GM Tube TOP PRN (11:00)
[2024-05-26 11:01] LABS: ANION GAP 13.7 (5-15); EST CRCL DRUG DOSING (CG) 86.56 mL/min; POTASSIUM,K 3.7 mEq/L (3.5-5.1)
[2024-05-26] MEDS: Acetaminophen/HYDROcodone 325-5 MG Tab PO PRN (11:02)
[2024-05-26] MEDS: Acetaminophen/oxyCODONE 325-5 MG Tab PO PRN (13:31)
[2024-05-26] MEDS: PIOGLITAZONE 30 MG PO SCH (13:56)
[2024-05-26] MEDS: ISOSORBIDE MONONITRATE 20 MG PO SCH (13:56)
[2024-05-26] MEDS: Ondansetron 4 MG/2 ML SDV IV PRN (14:41)
[2024-05-26] MEDS: rOPINIRole 1 MG Tab PO SCH (20:44)
[2024-05-26] MEDS: atorvaSTATin 40 MG Tab PO SCH (20:44)
[2024-05-26] MEDS: Tamsulosin 0.4 MG Cap.ER PO SCH (20:45)
[2024-05-26] MEDS ORDERED: Melatonin 3 MG Tab PO PRN (21:00)
[2024-05-26] MEDS: LORazepam 1 MG Tab PO PRN (21:42)
[2024-05-26] MEDS: Aluminum Hydroxide/Magnesium Hydroxide/Simethicone Susp 30 ML Cup PO PRN (21:45)
[2024-05-27 05:51] LABS: ANION GAP 17.5 (5-15); BUN/CREATININE RATIO 10.8 (14-18); CREATININE 1.2 mg/dL (0.7-1.3); EST CRCL DRUG DOSING (CG) 72.13 mL/min; MAGNESIUM 1.8 mg/dL (1.8-2.4); PHOSPHORUS 4.7 mg/dL (2.6-4.7); POTASSIUM,K 3.5 mEq/L (3.5-5.1)
[2024-05-27] MEDS: DULoxetine 30 MG Cap PO SCH (08:21)
[2024-05-27] MEDS: Insulin Glargine,Human Rec. Analog 100 Units/ML 3 ML Pen SUBCUT SCH (08:23)
[2024-05-27] MEDS ORDERED: atorvaSTATin 40 MG Tab PO SCH (09:00)
[2024-05-27] MEDS: Magnesium Sulfate/Water 2 GM in Premix Bag 1 BAG IV ONE (09:04)
[2024-05-27] MEDS: Potassium Chloride 20 MEQ Tab.ER PO ONE (09:05)
[2024-05-30 12:47] LABS: A/RA RATIO CALCULATION 0.6 ratio (<=25.0); ALDOSTERONE 18.9 ng/dL; METANEPHRINE 0.13 nmol/L (0.00-0.49); NORMETANEPHRINE 0.75 nmol/L (0.00-0.89); RENIN 32.2 ng/mL/hr
== END 2024-05-27 15:45 | disposition home or self-care (01) ==
LOC: JD.ED 14:21 → JD.MS 19:41
PROVIDERS: ADMIT Family Medicine; ATTEND Family Medicine
DX: K56.7 Ileus, unspecified (principal); I25.10 Atherosclerotic heart disease of native coronary artery without angina pectoris; J44.9 Chronic obstructive pulmonary disease, unspecified; I10 Essential (primary) hypertension; E78.5 Hyperlipidemia, unspecified; E11.9 Type 2 diabetes mellitus without complications; F41.9 Anxiety disorder, unspecified; F32.A Depression, unspecified; E66.9 Obesity, unspecified; K21.9 Gastro-esophageal reflux disease without esophagitis; G47.30 Sleep apnea, unspecified; Z90.49 Acquired absence of other specified parts of digestive tract; Z95.5 Presence of coronary angioplasty implant and graft; Z87.891 Personal history of nicotine dependence; Z79.899 Other long term (current) drug therapy; Z79.82 Long term (current) use of aspirin; Z79.4 Long term (current) use of insulin; Z88.0 Allergy status to penicillin; Z88.5 Allergy status to narcotic agent; Z91.013 Allergy to seafood; Z91.041 Radiographic dye allergy status
CPT/HCPCS: 36415; 74177; 74177-26; 80048; 80053; 81003; 82088; 82272; 82947; 83605; 83690; 83735; 83835; 84100; 84244; 84484; 85025; 86140; 93005; 93010; 96361; 96372; 96374; 96375; 96376; 99222; 99239; 99284; 99285-25; A9270-GY; G0378; J1200; J1650; J1815; J1815-GY; J2405; J2470; J2919; J3010; J3475; J3490; J7030; Q9967

== ENCOUNTER 2024-07-24 21:19 | Emergency (ER) | payer MEDICARE ==
[2024-07-24] MEDS: Acetaminophen/oxyCODONE 325-5 MG Tab PO ONE (22:41)
== END 2024-07-24 22:44 | disposition home or self-care (01) ==
LOC: JD.ED 21:19
DX: S93.401A Sprain of unspecified ligament of right ankle, initial encounter (principal); I25.10 Atherosclerotic heart disease of native coronary artery without angina pectoris; E78.00 Pure hypercholesterolemia, unspecified; I10 Essential (primary) hypertension; I25.2 Old myocardial infarction; J44.9 Chronic obstructive pulmonary disease, unspecified; K21.9 Gastro-esophageal reflux disease without esophagitis; M19.90 Unspecified osteoarthritis, unspecified site; Z86.73 Personal history of transient ischemic attack (TIA), and cerebral infarction without residual deficits; E11.9 Type 2 diabetes mellitus without complications; Z68.41 Body mass index [BMI] 40.0-44.9, adult; E66.9 Obesity, unspecified; Z79.82 Long term (current) use of aspirin; Z79.899 Other long term (current) drug therapy; Z88.1 Allergy status to other antibiotic agents; Z88.0 Allergy status to penicillin; Z88.8 Allergy status to other drugs, medicaments and biological substances; Z91.013 Allergy to seafood; Z88.9 Allergy status to unspecified drugs, medicaments and biological substances; Z91.041 Radiographic dye allergy status; X50.9XXA Other and unspecified overexertion or strenuous movements or postures, initial encounter
CPT/HCPCS: 73610; 99283; A9270

== ENCOUNTER 2024-08-01 15:45 | Emergency (ER) | payer MEDICARE ==
[2024-08-01] MEDS: Cyclobenzaprine 10 MG Tab PO ONE (18:34)
[2024-08-01] MEDS: Ondansetron 4 MG Tab.DIS PO ONE (18:35)
== END 2024-08-01 18:41 | disposition home or self-care (01) ==
LOC: JD.ED 15:45
DX: M54.9 Dorsalgia, unspecified (principal); I25.10 Atherosclerotic heart disease of native coronary artery without angina pectoris; E78.00 Pure hypercholesterolemia, unspecified; I10 Essential (primary) hypertension; I25.2 Old myocardial infarction; J44.9 Chronic obstructive pulmonary disease, unspecified; K21.9 Gastro-esophageal reflux disease without esophagitis; M19.90 Unspecified osteoarthritis, unspecified site; Z86.73 Personal history of transient ischemic attack (TIA), and cerebral infarction without residual deficits; E11.9 Type 2 diabetes mellitus without complications; E66.9 Obesity, unspecified; Z68.41 Body mass index [BMI] 40.0-44.9, adult; Z90.49 Acquired absence of other specified parts of digestive tract; Z79.82 Long term (current) use of aspirin; Z79.899 Other long term (current) drug therapy; Z88.1 Allergy status to other antibiotic agents; Z88.0 Allergy status to penicillin; Z88.5 Allergy status to narcotic agent; Z91.013 Allergy to seafood; Z88.8 Allergy status to other drugs, medicaments and biological substances; Z91.041 Radiographic dye allergy status; Z88.2 Allergy status to sulfonamides
CPT/HCPCS: 72125; 99283; A9270

== ENCOUNTER 2024-09-27 23:26 | Emergency (ER) | payer MEDICARE ==
[2024-09-27] MEDS: Albuterol/Ipratropium 3.0-0.5 MG/3 ML Neb Soln NEB ONE (23:54)
[2024-09-28 00:14] LABS: BASOPHILS ABSOLUTE AUTO 0.1 K/mm3 (0.0-0.2); BASOPHILS PERCENT AUTO 1.2 % (0.0-1.0); EOSINOPHILS ABSOLUTE AUTO 0.2 K/mm3 (0.0-0.4); EOSINOPHILS PERCENT AUTO 2.8 % (0.0-6.0); HEMATOCRIT 48.8 % (42.0-52.0); HEMOGLOBIN 16.5 gm/dl (14.0-18.0); IMMATURE GRAN ABSOLUTE AUTO 0.03 K/mm3 (0.00-0.05); IMMATURE GRAN PERCENT AUTO 0.4 % (0.0-0.4); LYMPHOCYTES ABSOLUTE AUTO 1.6 K/mm3 (1.0-4.8); LYMPHOCYTES PERCENT AUTO 21.5 % (24.0-44.0); MEAN CORPUSCULAR HEMOGLOBIN 30.2 pg (28.0-32.0); MEAN CORPUSCULAR HGB CONC 33.8 g/dl (32.0-36.0); MEAN CORPUSCULAR VOLUME 89.4 fl (83.0-99.0); MEAN PLATELET VOLUME 9.4 fl (9.4-12.4); MONOCYTES ABSOLUTE AUTO 0.8 K/mm3 (0.0-0.8); NEUTROPHILS ABSOLUTE AUTO 4.7 K/mm3 (1.8-7.7); NEUTROPHILS PERCENT AUTO 63.1 % (41.0-71.0); PLATELET COUNT,PLT 228 K/mm3 (150-400); RED BLOOD CELL COUNT 5.46 M/mm3 (4.52-5.90); WHITE BLOOD CELL COUNT,WBC 7.45 K/mm3 (3.9-11.3)
[2024-09-28] MEDS: Sodium Chloride 0.9% 10 ML Syringe FLUSH PRN (00:16)
[2024-09-28] MEDS: methylPREDNISolone Sodium Succinate 125 MG/2 ML SDV IVPUSH ONE (00:16)
[2024-09-28 00:48] LABS: A/G RATIO 0.9 (1-2); ALANINE AMINOTRANSFERASE,ALT 73 U/L (16-63); ALBUMIN 3.5 g/dl (3.4-5.0); ALKALINE PHOSPHATASE 139 U/L (46-116); ANION GAP 15.9 (5-15); ASPARTATE AMNIOTRANSFERASE,AST 29 U/L (15-37); BILIRUBIN TOTAL 0.5 mg/dL (0.2-1.0); BLOOD UREA NITROGEN,BUN 10 mg/dL (7-18); BUN/CREATININE RATIO 9.1 (14-18); CALCIUM 8.7 mg/dL (8.5-10.1); CARBON DIOXIDE,CO2 24 mEq/L (21-32); CHLORIDE,CL 102 mEq/L (98-107); CREATININE 1.1 mg/dL (0.7-1.3); EST CRCL DRUG DOSING (CG) 78.69 mL/min; ESTIMATED GFR 76 mL/min (>60); GLUCOSE RANDOM 208 mg/dL (70-99); POTASSIUM,K 3.9 mEq/L (3.5-5.1); PROTEIN TOTAL,TP 7.4 g/dl (6.4-8.2); SODIUM,NA 138 mEq/L (136-145)
[2024-09-28 00:49] LABS: TROPONIN I HIGH SENSITIVITY < 4 pg/mL (<=76)
== END 2024-09-28 04:27 | disposition home or self-care (01) ==
LOC: JD.ED 23:26
DX: J44.1 Chronic obstructive pulmonary disease with (acute) exacerbation (principal); R07.9 Chest pain, unspecified; I10 Essential (primary) hypertension; I25.10 Atherosclerotic heart disease of native coronary artery without angina pectoris; J45.909 Unspecified asthma, uncomplicated; M19.90 Unspecified osteoarthritis, unspecified site; E78.00 Pure hypercholesterolemia, unspecified; E66.9 Obesity, unspecified; E11.9 Type 2 diabetes mellitus without complications; Z68.41 Body mass index [BMI] 40.0-44.9, adult; Z88.0 Allergy status to penicillin; Z88.5 Allergy status to narcotic agent; Z91.013 Allergy to seafood; Z88.8 Allergy status to other drugs, medicaments and biological substances; Z91.041 Radiographic dye allergy status; Z79.82 Long term (current) use of aspirin; Z79.4 Long term (current) use of insulin; Z79.899 Other long term (current) drug therapy; Z90.49 Acquired absence of other specified parts of digestive tract
CPT/HCPCS: 36415; 71045; 71045-26; 80053; 84484; 85025; 93005; 94640; 96374; 99285-25; J2919; J7620-GY

== ENCOUNTER 2024-09-29 20:31 | Emergency (ER) | payer MEDICARE ==
[2024-09-29] MEDS ORDERED: Sodium Chloride 0.9% 10 ML Syringe FLUSH PRN (21:50)
[2024-09-29] MEDS: Ondansetron 4 MG Tab.DIS PO ONE (22:05)
[2024-09-29] MEDS: Aspirin 81 MG Tab.Chew PO ONE (22:07)
[2024-09-29] MEDS: Alum Hydrox/Mag Hydrox/Simeth 30 ML, Lidocaine 2% 15 ML PO ONE (22:09)
[2024-09-29] MEDS: Famotidine 20 MG Tab PO ONE (22:09)
[2024-09-29 22:23] LABS: BASOPHILS ABSOLUTE AUTO 0.1 K/mm3 (0.0-0.2); BASOPHILS PERCENT AUTO 0.8 % (0.0-1.0); EOSINOPHILS ABSOLUTE AUTO 0.3 K/mm3 (0.0-0.4); EOSINOPHILS PERCENT AUTO 3.1 % (0.0-6.0); HEMATOCRIT 48.9 % (42.0-52.0); HEMOGLOBIN 16.5 gm/dl (14.0-18.0); IMMATURE GRAN ABSOLUTE AUTO 0.04 K/mm3 (0.00-0.05); IMMATURE GRAN PERCENT AUTO 0.5 % (0.0-0.4); LYMPHOCYTES PERCENT AUTO 23.5 % (24.0-44.0); MEAN CORPUSCULAR HEMOGLOBIN 29.7 pg (28.0-32.0); MEAN CORPUSCULAR HGB CONC 33.7 g/dl (32.0-36.0); MEAN CORPUSCULAR VOLUME 88.1 fl (83.0-99.0); MONOCYTES ABSOLUTE AUTO 0.9 K/mm3 (0.0-0.8); MONOCYTES PERCENT AUTO 10.2 % (0.0-8.0); NEUTROPHILS ABSOLUTE AUTO 5.1 K/mm3 (1.8-7.7); NEUTROPHILS PERCENT AUTO 61.9 % (41.0-71.0); PLATELET COUNT,PLT 229 K/mm3 (150-400); RED BLOOD CELL COUNT 5.55 M/mm3 (4.52-5.90); WHITE BLOOD CELL COUNT,WBC 8.31 K/mm3 (3.9-11.3)
[2024-09-29 22:51] LABS: A/G RATIO 1.1 (1-2); ALBUMIN 3.8 g/dl (3.4-5.0); ANION GAP 15.6 (5-15); BILIRUBIN TOTAL 0.4 mg/dL (0.2-1.0); CALCIUM 8.7 mg/dL (8.5-10.1); EST CRCL DRUG DOSING (CG) 86.56 mL/min; POTASSIUM,K 3.6 mEq/L (3.5-5.1); PROTEIN TOTAL,TP 7.4 g/dl (6.4-8.2)
== END 2024-09-30 02:01 | disposition home or self-care (01) ==
LOC: JD.ED 20:31
DX: R07.9 Chest pain, unspecified (principal); I10 Essential (primary) hypertension; E78.00 Pure hypercholesterolemia, unspecified; J44.89 Other specified chronic obstructive pulmonary disease; K21.9 Gastro-esophageal reflux disease without esophagitis; E11.9 Type 2 diabetes mellitus without complications; E66.9 Obesity, unspecified; Z90.49 Acquired absence of other specified parts of digestive tract; Z79.899 Other long term (current) drug therapy; Z91.018 Allergy to other foods; Z88.8 Allergy status to other drugs, medicaments and biological substances; Z91.013 Allergy to seafood; Z88.5 Allergy status to narcotic agent; Z88.0 Allergy status to penicillin; Z88.1 Allergy status to other antibiotic agents
CPT/HCPCS: 36415; 71045; 80053; 84484; 85025; 93005; 99285; A9270

== ENCOUNTER 2024-11-24 22:53 | Emergency (ER) | payer MEDICAID, MEDICARE, OTHER ==
[2024-11-24] MEDS ORDERED: Morphine 2 MG/ML SYRINGE IVPUSH ONE (23:18)
[2024-11-24] MEDS ORDERED: Naloxone 0.4 MG/ML SDV IVPUSH PRN (23:18)
[2024-11-24] MEDS ORDERED: Nitroglycerin 0.3 MG Tab.SL SL PRN (23:18)
[2024-11-24 23:20] LABS: BASOPHILS ABSOLUTE AUTO 0.1 K/mm3 (0.0-0.2); BASOPHILS PERCENT AUTO 0.8 % (0.0-1.0); EOSINOPHILS ABSOLUTE AUTO 0.3 K/mm3 (0.0-0.4); EOSINOPHILS PERCENT AUTO 3.3 % (0.0-6.0); HEMATOCRIT 52.6 % (42.0-52.0); HEMOGLOBIN 17.7 gm/dl (14.0-18.0); IMMATURE GRAN ABSOLUTE AUTO 0.07 K/mm3 (0.00-0.05); IMMATURE GRAN PERCENT AUTO 0.7 % (0.0-0.4); LYMPHOCYTES ABSOLUTE AUTO 2.3 K/mm3 (1.0-4.8); LYMPHOCYTES PERCENT AUTO 22.7 % (24.0-44.0); MEAN CORPUSCULAR HGB CONC 33.7 g/dl (32.0-36.0); MEAN CORPUSCULAR VOLUME 89.2 fl (83.0-99.0); MEAN PLATELET VOLUME 9.6 fl (9.4-12.4); MONOCYTES ABSOLUTE AUTO 0.9 K/mm3 (0.0-0.8); MONOCYTES PERCENT AUTO 9.1 % (0.0-8.0); NEUTROPHILS ABSOLUTE AUTO 6.5 K/mm3 (1.8-7.7); NEUTROPHILS PERCENT AUTO 63.4 % (41.0-71.0); PLATELET COUNT,PLT 276 K/mm3 (150-400); WHITE BLOOD CELL COUNT,WBC 10.24 K/mm3 (3.9-11.3)
[2024-11-24] MEDS: Heparin Sodium 5,000 Units/ML Vial IVPUSH ONE (23:31)
[2024-11-24] MEDS: Heparin Sodium/D5W 250 ML IV SCH (23:33)
[2024-11-24 23:38] LABS: INR 1.05; PROTHROMBIN TIME 11.1 SECONDS (9.7-12.0)
[2024-11-24 23:46] LABS: A/G RATIO 0.9 (1-2); ALBUMIN 3.7 g/dl (3.4-5.0); ANION GAP 13.4 (5-15); BILIRUBIN TOTAL 0.6 mg/dL (0.2-1.0); BUN/CREATININE RATIO 7.1 (14-18); CREATININE 1.7 mg/dL (0.7-1.3); EST CRCL DRUG DOSING (CG) 50.92 mL/min; MAGNESIUM 1.9 mg/dL (1.8-2.4); POTASSIUM,K 4.4 mEq/L (3.5-5.1); PROTEIN TOTAL,TP 7.8 g/dl (6.4-8.2)
[2024-11-25] MEDS ORDERED: Naloxone 0.4 MG/ML SDV IVPUSH PRN (00:02)
[2024-11-25] MEDS: fentaNYL 100 MCG/2 ML SDV IVPUSH ONE (00:15)
[2024-11-25] MEDS: Heparin Sodium/D5W 250 ML IV SCH (00:16)
== END 2024-11-25 00:30 ==
LOC: JD.ED 22:53
DX: I21.3 ST elevation (STEMI) myocardial infarction of unspecified site (principal); I24.9 Acute ischemic heart disease, unspecified; E11.9 Type 2 diabetes mellitus without complications; I10 Essential (primary) hypertension; E78.00 Pure hypercholesterolemia, unspecified; I25.10 Atherosclerotic heart disease of native coronary artery without angina pectoris; I25.2 Old myocardial infarction; J44.89 Other specified chronic obstructive pulmonary disease; Z88.1 Allergy status to other antibiotic agents; Z88.5 Allergy status to narcotic agent; Z88.0 Allergy status to penicillin; Z91.013 Allergy to seafood; Z91.041 Radiographic dye allergy status; Z79.899 Other long term (current) drug therapy; Z79.51 Long term (current) use of inhaled steroids; Z79.4 Long term (current) use of insulin; Z79.02 Long term (current) use of antithrombotics/antiplatelets; Z79.82 Long term (current) use of aspirin
CPT/HCPCS: 36415; 71045; 71045-26; 80053; 82550; 83735; 83880; 84484; 85025; 85610; 93005; 93010; 96365; 96375; 99285; 99285-25; J1644; J3010

== ENCOUNTER 2025-01-07 17:49 | Emergency (ER) | payer MEDICARE, OTHER ==
[2025-01-07] MEDS ORDERED: Naloxone 0.4 MG/ML SDV IVPUSH PRN ×3 (19:29→22:00)
[2025-01-07 20:00] LABS: BASOPHILS ABSOLUTE AUTO 0.1 K/mm3 (0.0-0.2); EOSINOPHILS ABSOLUTE AUTO 0.4 K/mm3 (0.0-0.4); EOSINOPHILS PERCENT AUTO 4.4 % (0.0-6.0); HEMATOCRIT 52.6 % (42.0-52.0); IMMATURE GRAN ABSOLUTE AUTO 0.06 K/mm3 (0.00-0.05); IMMATURE GRAN PERCENT AUTO 0.6 % (0.0-0.4); LYMPHOCYTES PERCENT AUTO 19.7 % (24.0-44.0); MEAN CORPUSCULAR HEMOGLOBIN 30.5 pg (28.0-32.0); MEAN CORPUSCULAR HGB CONC 34.2 g/dl (32.0-36.0); MEAN CORPUSCULAR VOLUME 89.2 fl (83.0-99.0); MEAN PLATELET VOLUME 9.2 fl (9.4-12.4); MONOCYTES ABSOLUTE AUTO 1.1 K/mm3 (0.0-0.8); MONOCYTES PERCENT AUTO 10.5 % (0.0-8.0); NEUTROPHILS ABSOLUTE AUTO 6.5 K/mm3 (1.8-7.7); NEUTROPHILS PERCENT AUTO 63.8 % (41.0-71.0); PLATELET COUNT,PLT 272 K/mm3 (150-400); WHITE BLOOD CELL COUNT,WBC 10.11 K/mm3 (3.9-11.3)
[2025-01-07 20:02] LABS: APPEARANCE,URINE CLEAR (Clear); BILIRUBIN,URINE NEGATIVE (Negative); COLOR,URINE YELLOW (Yellow); GLUCOSE,URINE 2+ (Negative); KETONES,URINE NEGATIVE (Negative); LEUKOCYTE ESTERASE,URINE NEGATIVE (Negative); NITRITE,URINE NEGATIVE (Negative); OCCULT BLOOD,URINE NEGATIVE (Negative); PROTEIN,URINE NEGATIVE (Negative); UROBILINOGEN,URINE 0.2 (0.2-1.0)
[2025-01-07 20:05] LABS: BACTERIA,URINE FEW /hpf (FEW); MUCUS,URINE FEW /hpf (FEW); RBC,URINE 0-5 /hpf (0-5); SQUAMOUS EPITHELIAL CELLS,UR 0-5 /hpf (0-5); WBC,URINE 0-5 /hpf (0-5)
[2025-01-07] MEDS: HYDROmorphone 0.5 MG/0.5 ML Syringe IVPUSH ONE ×2 (20:07→22:07)
[2025-01-07 20:24] LABS: A/G RATIO 0.9 (1-2); ALBUMIN 4.1 g/dl (3.4-5.0); ANION GAP 17.1 (5-15); BILIRUBIN TOTAL 0.4 mg/dL (0.2-1.0); BUN/CREATININE RATIO 14.2 (14-18); CALCIUM 9.4 mg/dL (8.5-10.1); CREATININE 1.2 mg/dL (0.7-1.3); EST CRCL DRUG DOSING (CG) 71.21 mL/min; POTASSIUM,K 4.1 mEq/L (3.5-5.1); PROTEIN TOTAL,TP 8.5 g/dl (6.4-8.2)
[2025-01-07] MEDS: Sodium Chloride 0.9% 10 ML Syringe FLUSH PRN (20:34)
[2025-01-07] MEDS: HYDROmorphone 1 MG/ML Syringe IVPUSH ONE (20:43)
== END 2025-01-07 23:29 | disposition home or self-care (01) ==
LOC: JD.ED 17:49
DX: S80.02XA Contusion of left knee, initial encounter (principal); S50.02XA Contusion of left elbow, initial encounter; M54.2 Cervicalgia; I10 Essential (primary) hypertension; E78.00 Pure hypercholesterolemia, unspecified; I25.2 Old myocardial infarction; J44.89 Other specified chronic obstructive pulmonary disease; E11.9 Type 2 diabetes mellitus without complications; Z88.0 Allergy status to penicillin; Z91.013 Allergy to seafood; Z88.5 Allergy status to narcotic agent; Z88.8 Allergy status to other drugs, medicaments and biological substances; Z88.1 Allergy status to other antibiotic agents; Z91.041 Radiographic dye allergy status; Z79.02 Long term (current) use of antithrombotics/antiplatelets; Z79.899 Other long term (current) drug therapy; Z79.4 Long term (current) use of insulin; Z79.51 Long term (current) use of inhaled steroids; Z86.73 Personal history of transient ischemic attack (TIA), and cerebral infarction without residual deficits; Z79.01 Long term (current) use of anticoagulants; W01.0XXA Fall on same level from slipping, tripping and stumbling without subsequent striking against object, initial encounter; Y93.89 Activity, other specified
CPT/HCPCS: 36415; 70450; 72125; 73030; 73080; 73562; 80053; 81001; 85025; 96374; 96376; 99284; J1171

== ENCOUNTER 2025-01-11 19:58 | Emergency (ER) | payer MEDICARE, OTHER ==
[2025-01-11] MEDS ORDERED: Sodium Chloride 0.9% 10 ML Syringe FLUSH PRN (20:39)
[2025-01-11 20:53] LABS: BASOPHILS ABSOLUTE AUTO 0.1 K/mm3 (0.0-0.2); BASOPHILS PERCENT AUTO 1.3 % (0.0-1.0); EOSINOPHILS ABSOLUTE AUTO 0.6 K/mm3 (0.0-0.4); EOSINOPHILS PERCENT AUTO 7.3 % (0.0-6.0); HEMATOCRIT 49.1 % (42.0-52.0); HEMOGLOBIN 16.5 gm/dl (14.0-18.0); IMMATURE GRAN ABSOLUTE AUTO 0.03 K/mm3 (0.00-0.05); IMMATURE GRAN PERCENT AUTO 0.3 % (0.0-0.4); LYMPHOCYTES ABSOLUTE AUTO 1.5 K/mm3 (1.0-4.8); LYMPHOCYTES PERCENT AUTO 17.5 % (24.0-44.0); MEAN CORPUSCULAR HEMOGLOBIN 30.3 pg (28.0-32.0); MEAN CORPUSCULAR HGB CONC 33.6 g/dl (32.0-36.0); MEAN CORPUSCULAR VOLUME 90.1 fl (83.0-99.0); MEAN PLATELET VOLUME 9.2 fl (9.4-12.4); MONOCYTES ABSOLUTE AUTO 0.8 K/mm3 (0.0-0.8); MONOCYTES PERCENT AUTO 9.3 % (0.0-8.0); NEUTROPHILS ABSOLUTE AUTO 5.5 K/mm3 (1.8-7.7); NEUTROPHILS PERCENT AUTO 64.3 % (41.0-71.0); PLATELET COUNT,PLT 259 K/mm3 (150-400); RED BLOOD CELL COUNT 5.45 M/mm3 (4.52-5.90); WHITE BLOOD CELL COUNT,WBC 8.58 K/mm3 (3.9-11.3)
[2025-01-11 21:06] LABS: A/G RATIO 0.9 (1-2); ALBUMIN 3.5 g/dl (3.4-5.0); ANION GAP 12.1 (5-15); BILIRUBIN TOTAL 0.5 mg/dL (0.2-1.0); CALCIUM 8.9 mg/dL (8.5-10.1); CREATININE 1.1 mg/dL (0.7-1.3); EST CRCL DRUG DOSING (CG) 77.68 mL/min; POTASSIUM,K 4.1 mEq/L (3.5-5.1); PROTEIN TOTAL,TP 7.4 g/dl (6.4-8.2)
[2025-01-11] MEDS: Acetaminophen/oxyCODONE 325-5 MG Tab PO ONE (21:16)
[2025-01-11] MEDS: Levofloxacin 750 MG Tab PO SCH (21:17)
[2025-01-11] MEDS: methylPREDNISolone Sodium Succinate 125 MG/2 ML SDV IVPUSH ONE (21:18)
== END 2025-01-11 21:39 | disposition home or self-care (01) ==
LOC: JD.ED 19:58
DX: J44.0 Chronic obstructive pulmonary disease with (acute) lower respiratory infection (principal); J18.9 Pneumonia, unspecified organism; E78.00 Pure hypercholesterolemia, unspecified; I25.10 Atherosclerotic heart disease of native coronary artery without angina pectoris; I25.2 Old myocardial infarction; K21.9 Gastro-esophageal reflux disease without esophagitis; E11.9 Type 2 diabetes mellitus without complications; Z88.1 Allergy status to other antibiotic agents; Z88.5 Allergy status to narcotic agent; Z91.013 Allergy to seafood; Z91.041 Radiographic dye allergy status; Z88.8 Allergy status to other drugs, medicaments and biological substances; Z79.02 Long term (current) use of antithrombotics/antiplatelets; Z79.899 Other long term (current) drug therapy; Z79.4 Long term (current) use of insulin; Z86.73 Personal history of transient ischemic attack (TIA), and cerebral infarction without residual deficits
CPT/HCPCS: 36415; 71045; 71045-26; 80053; 84484; 85025; 93005; 93010; 96374; 99283; 99285-25; A9270-GY; J2919

== ENCOUNTER 2025-01-22 15:38 | Emergency (ER) | payer MEDICARE | END 2025-01-22 16:36 | disposition home or self-care (01) | LOC: JD.ED 15:38 | DX: S50.02XA Contusion of left elbow, initial encounter (principal); S80.10XA Contusion of unspecified lower leg, initial encounter; Z88.0 Allergy status to penicillin; Z88.5 Allergy status to narcotic agent; Z88.8 Allergy status to other drugs, medicaments and biological substances; Z79.82 Long term (current) use of aspirin; Z79.899 Other long term (current) drug therapy; X58.XXXA Exposure to other specified factors, initial encounter | CPT/HCPCS: 73070-26-LT; 73070-LT; 73590-26-LT; 73590-LT; 99283 ==

== ENCOUNTER 2025-02-15 18:01 | Emergency (ER) | payer MEDICARE ==
[2025-02-15 18:50] LABS: BASOPHILS ABSOLUTE AUTO 0.1 K/mm3 (0.0-0.2); BASOPHILS PERCENT AUTO 1.2 % (0.0-1.0); EOSINOPHILS ABSOLUTE AUTO 0.6 K/mm3 (0.0-0.4); EOSINOPHILS PERCENT AUTO 8.2 % (0.0-6.0); HEMATOCRIT 49.2 % (42.0-52.0); HEMOGLOBIN 16.7 gm/dl (14.0-18.0); IMMATURE GRAN ABSOLUTE AUTO 0.04 K/mm3 (0.00-0.05); IMMATURE GRAN PERCENT AUTO 0.6 % (0.0-0.4); LYMPHOCYTES ABSOLUTE AUTO 1.2 K/mm3 (1.0-4.8); LYMPHOCYTES PERCENT AUTO 17.8 % (24.0-44.0); MEAN CORPUSCULAR HEMOGLOBIN 30.3 pg (28.0-32.0); MEAN CORPUSCULAR HGB CONC 33.9 g/dl (32.0-36.0); MEAN CORPUSCULAR VOLUME 89.1 fl (83.0-99.0); MEAN PLATELET VOLUME 9.5 fl (9.4-12.4); MONOCYTES ABSOLUTE AUTO 0.7 K/mm3 (0.0-0.8); MONOCYTES PERCENT AUTO 9.7 % (0.0-8.0); NEUTROPHILS ABSOLUTE AUTO 4.2 K/mm3 (1.8-7.7); NEUTROPHILS PERCENT AUTO 62.5 % (41.0-71.0); PLATELET COUNT,PLT 197 K/mm3 (150-400); RED BLOOD CELL COUNT 5.52 M/mm3 (4.52-5.90); WHITE BLOOD CELL COUNT,WBC 6.68 K/mm3 (3.9-11.3)
[2025-02-15] MEDS: Aspirin 81 MG Tab.Chew PO ONE (19:01)
[2025-02-15] MEDS: methylPREDNISolone Sodium Succinate 125 MG/2 ML SDV IVPUSH ONE (19:01)
[2025-02-15] MEDS: Albuterol/Ipratropium 3.0-0.5 MG/3 ML Neb Soln NEB ONE ×3 (19:06→21:18)
[2025-02-15] MEDS ORDERED: Naloxone 0.4 MG/ML SDV IVPUSH PRN ×2 (19:24→20:27)
[2025-02-15 19:32] LABS: A/G RATIO 0.9 (1-2); ALBUMIN 3.6 g/dl (3.4-5.0); BILIRUBIN TOTAL 0.4 mg/dL (0.2-1.0); BUN/CREATININE RATIO 13.3 (14-18); CALCIUM 8.7 mg/dL (8.5-10.1); CREATININE 0.9 mg/dL (0.7-1.3); EST CRCL DRUG DOSING (CG) 94.94 mL/min; PROTEIN TOTAL,TP 7.5 g/dl (6.4-8.2)
[2025-02-15] MEDS: HYDROmorphone 0.5 MG/0.5 ML Syringe IVPUSH ONE ×2 (19:44→20:47)
[2025-02-15] MEDS: Metoclopramide 10 MG/2 ML SDV IVPUSH ONE (20:47)
== END 2025-02-15 21:33 | disposition home or self-care (01) ==
LOC: JD.ED 18:01
DX: J44.1 Chronic obstructive pulmonary disease with (acute) exacerbation (principal); I25.2 Old myocardial infarction; I10 Essential (primary) hypertension; E78.00 Pure hypercholesterolemia, unspecified; M19.90 Unspecified osteoarthritis, unspecified site; K21.9 Gastro-esophageal reflux disease without esophagitis; E11.9 Type 2 diabetes mellitus without complications; Z90.49 Acquired absence of other specified parts of digestive tract; Z88.0 Allergy status to penicillin; Z88.1 Allergy status to other antibiotic agents; Z88.5 Allergy status to narcotic agent; Z88.8 Allergy status to other drugs, medicaments and biological substances; Z91.041 Radiographic dye allergy status; Z91.048 Other nonmedicinal substance allergy status; Z79.82 Long term (current) use of aspirin; Z79.4 Long term (current) use of insulin; Z79.51 Long term (current) use of inhaled steroids
CPT/HCPCS: 36415; 71045; 73030; 80053; 83880; 84484; 85025; 93005; 94640; 96374; 96375; 96376; 99285; A9270; J2765; J2919; 93010; 99284

== ENCOUNTER 2025-02-16 22:18 | Emergency (ER) | payer MEDICARE ==
[2025-02-16] MEDS ORDERED: Sodium Chloride 0.9% 10 ML Syringe FLUSH PRN (23:10)
[2025-02-16] MEDS: Sodium Chloride 0.9% 500 ML IV ONE (23:33)
[2025-02-16] MEDS: LORazepam 2 MG/ML SDV IVPUSH ONE (23:33)
[2025-02-16 23:41] LABS: BASOPHILS PERCENT AUTO 0.2 % (0.0-1.0); HEMATOCRIT 47.5 % (42.0-52.0); HEMOGLOBIN 16.3 gm/dl (14.0-18.0); IMMATURE GRAN ABSOLUTE AUTO 0.16 K/mm3 (0.00-0.05); IMMATURE GRAN PERCENT AUTO 0.8 % (0.0-0.4); LYMPHOCYTES ABSOLUTE AUTO 1.4 K/mm3 (1.0-4.8); LYMPHOCYTES PERCENT AUTO 7.5 % (24.0-44.0); MEAN CORPUSCULAR HEMOGLOBIN 30.6 pg (28.0-32.0); MEAN CORPUSCULAR HGB CONC 34.3 g/dl (32.0-36.0); MEAN CORPUSCULAR VOLUME 89.1 fl (83.0-99.0); MEAN PLATELET VOLUME 9.4 fl (9.4-12.4); MONOCYTES ABSOLUTE AUTO 1.4 K/mm3 (0.0-0.8); MONOCYTES PERCENT AUTO 7.3 % (0.0-8.0); NEUTROPHILS PERCENT AUTO 84.2 % (41.0-71.0); PLATELET COUNT,PLT 256 K/mm3 (150-400); RED BLOOD CELL COUNT 5.33 M/mm3 (4.52-5.90); WHITE BLOOD CELL COUNT,WBC 18.96 K/mm3 (3.9-11.3)
[2025-02-16 23:44] LABS: BASE EXCESS VENOUS -2.3 (-4.0-2.0); BICARBONATE,VENOUS 20.2 meq/L (22-26); PH,VENOUS 7.45 (7.30-7.40)
[2025-02-17 00:19] LABS: ALBUMIN 3.7 g/dl (3.4-5.0); ANION GAP 18.1 (5-15); BILIRUBIN TOTAL 0.3 mg/dL (0.2-1.0); BUN/CREATININE RATIO 12.7 (14-18); CALCIUM 8.7 mg/dL (8.5-10.1); CREATININE 1.1 mg/dL (0.7-1.3); EST CRCL DRUG DOSING (CG) 77.68 mL/min; PROTEIN TOTAL,TP 7.5 g/dl (6.4-8.2); TSH 0.895 uIU/mL (0.358-3.74)
[2025-02-17 00:37] LABS: POTASSIUM,K 4.1 mEq/L (3.5-5.1)
[2025-02-17 01:05] LABS: APPEARANCE,URINE CLEAR (Clear); BILIRUBIN,URINE NEGATIVE (Negative); COLOR,URINE YELLOW (Yellow); GLUCOSE,URINE 2+ (Negative); KETONES,URINE TRACE (Negative); LEUKOCYTE ESTERASE,URINE NEGATIVE (Negative); NITRITE,URINE NEGATIVE (Negative); OCCULT BLOOD,URINE NEGATIVE (Negative); PROTEIN,URINE NEGATIVE (Negative)
[2025-02-17] MEDS: Insulin Regular, Human 100 Units/ML 10 ML Vial IV ONE (02:03)
== END 2025-02-17 02:40 | disposition home or self-care (01) ==
LOC: JD.ED 22:18
DX: F41.0 Panic disorder [episodic paroxysmal anxiety] (principal); R07.9 Chest pain, unspecified; I10 Essential (primary) hypertension; E78.00 Pure hypercholesterolemia, unspecified; I25.10 Atherosclerotic heart disease of native coronary artery without angina pectoris; J44.89 Other specified chronic obstructive pulmonary disease; K21.9 Gastro-esophageal reflux disease without esophagitis; E11.9 Type 2 diabetes mellitus without complications; E66.9 Obesity, unspecified; Z90.49 Acquired absence of other specified parts of digestive tract; Z79.899 Other long term (current) drug therapy; Z79.82 Long term (current) use of aspirin; Z79.4 Long term (current) use of insulin; Z91.013 Allergy to seafood; Z88.5 Allergy status to narcotic agent; Z88.8 Allergy status to other drugs, medicaments and biological substances; Z91.048 Other nonmedicinal substance allergy status; Z88.0 Allergy status to penicillin; Z88.1 Allergy status to other antibiotic agents
CPT/HCPCS: 36415; 71045; 80053; 81003; 82803; 82947; 83690; 83735; 83880; 83930; 84443; 84484; 85025; 93005; 94640; 96361; 96374; 96375; 96376; 99285; A9270; J1171; J1815; J2060; J2405; J2765; J2919; J7030; 93010; 99284

== ENCOUNTER 2025-02-19 04:36 | Emergency (ER) | payer MEDICARE, OTHER ==
[2025-02-19] MEDS: Sodium Chloride 0.9% 1,000 ML IV ONE (05:14)
[2025-02-19] MEDS: Ondansetron 4 MG/2 ML SDV IVPUSH ONE (05:14)
[2025-02-19 05:25] LABS: ALANINE AMINOTRANSFERASE,ALT 59 U/L (16-63); ALBUMIN 3.7 g/dl (3.4-5.0); ALKALINE PHOSPHATASE 139 U/L (46-116); ANION GAP 17.7 (5-15); ASPARTATE AMNIOTRANSFERASE,AST 20 U/L (15-37); BILIRUBIN TOTAL 0.8 mg/dL (0.2-1.0); BLOOD UREA NITROGEN,BUN 27 mg/dL (7-18); BUN/CREATININE RATIO 20.8 (14-18); CALCIUM 8.6 mg/dL (8.5-10.1); CARBON DIOXIDE,CO2 21 mEq/L (21-32); CHLORIDE,CL 100 mEq/L (98-107); CREATININE 1.3 mg/dL (0.7-1.3); ESTIMATED GFR 62 mL/min (>60); GLUCOSE RANDOM 276 mg/dL (70-99); LIPASE 41 U/L (16-77); MAGNESIUM 1.9 mg/dL (1.8-2.4); POTASSIUM,K 3.7 mEq/L (3.5-5.1); PROTEIN TOTAL,TP 7.6 g/dl (6.4-8.2); SODIUM,NA 135 mEq/L (136-145)
[2025-02-19 05:38] LABS: BASOPHILS ABSOLUTE AUTO 0.1 K/mm3 (0.0-0.2); BASOPHILS PERCENT AUTO 0.4 % (0.0-1.0); EOSINOPHILS PERCENT AUTO 0.2 % (0.0-6.0); HEMATOCRIT 54.7 % (42.0-52.0); IMMATURE GRAN ABSOLUTE AUTO 0.11 K/mm3 (0.00-0.05); IMMATURE GRAN PERCENT AUTO 0.9 % (0.0-0.4); LYMPHOCYTES ABSOLUTE AUTO 0.3 K/mm3 (1.0-4.8); LYMPHOCYTES PERCENT AUTO 2.5 % (24.0-44.0); MEAN CORPUSCULAR HEMOGLOBIN 30.3 pg (28.0-32.0); MEAN CORPUSCULAR VOLUME 89.1 fl (83.0-99.0); MEAN PLATELET VOLUME 9.4 fl (9.4-12.4); MONOCYTES ABSOLUTE AUTO 0.9 K/mm3 (0.0-0.8); MONOCYTES PERCENT AUTO 7.3 % (0.0-8.0); NEUTROPHILS ABSOLUTE AUTO 10.9 K/mm3 (1.8-7.7); NEUTROPHILS PERCENT AUTO 88.7 % (41.0-71.0); PLATELET COUNT,PLT 259 K/mm3 (150-400); RED BLOOD CELL COUNT 6.14 M/mm3 (4.52-5.90); WHITE BLOOD CELL COUNT,WBC 12.33 K/mm3 (3.9-11.3)
[2025-02-19 05:39] LABS: HEMOGLOBIN 18.6 gm/dl (14.0-18.0)
[2025-02-19] MEDS: Acetaminophen 325 MG Tab PO ONE (05:40)
[2025-02-19 05:49] LABS: APPEARANCE,URINE CLEAR (Clear); BILIRUBIN,URINE NEGATIVE (Negative); COLOR,URINE YELLOW (Yellow); GLUCOSE,URINE 2+ (Negative); KETONES,URINE TRACE (Negative); LEUKOCYTE ESTERASE,URINE NEGATIVE (Negative); NITRITE,URINE NEGATIVE (Negative); OCCULT BLOOD,URINE TRACE-LYSED (Negative); PROTEIN,URINE NEGATIVE (Negative); UROBILINOGEN,URINE 0.2 (0.2-1.0)
[2025-02-19 05:59] LABS: BACTERIA,URINE FEW /hpf (FEW); EPITHELIAL CELLS,URINE 0-5 /hpf (0-5); HYALINE CASTS,URINE 0-5 /lpf (0-5); MUCUS,URINE RARE /hpf (FEW); RBC,URINE 0-5 /hpf (0-5); WBC,URINE 0-5 /hpf (0-5)
[2025-02-19] MEDS: Sodium Chloride 0.9% 10 ML Syringe FLUSH PRN ×2 (07:59→09:43)
[2025-02-19] MEDS: Iopamidol 612 MG/ML 30 ML SDV IV ONE (07:59)
[2025-02-19] MEDS: Iopamidol 612 MG/ML 100 ML Bottle IVPUSH ONE (07:59)
[2025-02-19] MEDS: Pantoprazole 40 MG Vial IVPUSH ONE (09:42)
[2025-02-19] MEDS: Lactated Ringers 1,000 ML IV ONE (09:42)
[2025-02-19] MEDS: Carvedilol 6.25 MG Tab PO ONE (12:05)
== END 2025-02-19 14:10 | disposition home or self-care (01) ==
LOC: JD.ED 04:36
DX: R19.7 Diarrhea, unspecified (principal); R11.2 Nausea with vomiting, unspecified; E11.65 Type 2 diabetes mellitus with hyperglycemia; I10 Essential (primary) hypertension; I25.10 Atherosclerotic heart disease of native coronary artery without angina pectoris; E66.9 Obesity, unspecified; E78.00 Pure hypercholesterolemia, unspecified; Z88.8 Allergy status to other drugs, medicaments and biological substances; Z88.0 Allergy status to penicillin; Z79.899 Other long term (current) drug therapy; Z90.49 Acquired absence of other specified parts of digestive tract
CPT/HCPCS: 36415; 71045; 71045-26; 74177; 74177-26; 80053; 81001; 83690; 83735; 84484; 85025; 93005; 96361; 96374; 96375; 99284-25; A9270-GY; J2405; J2470; J7030; J7120; Q9967

== ENCOUNTER 2025-03-09 18:32 | Emergency (ER) | payer MEDICARE, OTHER ==
[2025-03-09] MEDS: Sodium Chloride 0.9% 1,000 ML IV STA (19:33)
[2025-03-09] MEDS: oxyCODONE 5 MG Tab PO ONE (19:33)
[2025-03-09] MEDS: Sodium Chloride 0.9% 10 ML Syringe FLUSH PRN (19:34)
[2025-03-09 19:38] LABS: BASOPHILS ABSOLUTE AUTO 0.1 K/mm3 (0.0-0.2); BASOPHILS PERCENT AUTO 0.9 % (0.0-1.0); EOSINOPHILS ABSOLUTE AUTO 0.4 K/mm3 (0.0-0.4); EOSINOPHILS PERCENT AUTO 5.3 % (0.0-6.0); HEMATOCRIT 43.4 % (42.0-52.0); HEMOGLOBIN 14.7 gm/dl (14.0-18.0); IMMATURE GRAN ABSOLUTE AUTO 0.04 K/mm3 (0.00-0.05); IMMATURE GRAN PERCENT AUTO 0.6 % (0.0-0.4); LYMPHOCYTES ABSOLUTE AUTO 1.4 K/mm3 (1.0-4.8); LYMPHOCYTES PERCENT AUTO 20.8 % (24.0-44.0); MEAN CORPUSCULAR HEMOGLOBIN 30.5 pg (28.0-32.0); MEAN CORPUSCULAR HGB CONC 33.9 g/dl (32.0-36.0); MONOCYTES ABSOLUTE AUTO 0.8 K/mm3 (0.0-0.8); MONOCYTES PERCENT AUTO 11.5 % (0.0-8.0); NEUTROPHILS ABSOLUTE AUTO 4.1 K/mm3 (1.8-7.7); NEUTROPHILS PERCENT AUTO 60.9 % (41.0-71.0); PLATELET COUNT,PLT 286 K/mm3 (150-400); RED BLOOD CELL COUNT 4.82 M/mm3 (4.52-5.90); WHITE BLOOD CELL COUNT,WBC 6.79 K/mm3 (3.9-11.3)
[2025-03-09 20:02] LABS: A/G RATIO 0.9 (1-2); ALBUMIN 3.3 g/dl (3.4-5.0); ANION GAP 12.9 (5-15); BILIRUBIN TOTAL 0.4 mg/dL (0.2-1.0); CALCIUM 8.9 mg/dL (8.5-10.1); CREATININE 1.5 mg/dL (0.7-1.3); EST CRCL DRUG DOSING (CG) 56.97 mL/min; POTASSIUM,K 3.9 mEq/L (3.5-5.1)
== END 2025-03-09 20:52 | disposition home or self-care (01) ==
LOC: JD.ED 18:32
DX: R42 Dizziness and giddiness (principal); R07.89 Other chest pain; E78.00 Pure hypercholesterolemia, unspecified; I10 Essential (primary) hypertension; I25.2 Old myocardial infarction; I25.10 Atherosclerotic heart disease of native coronary artery without angina pectoris; J44.89 Other specified chronic obstructive pulmonary disease; Z95.5 Presence of coronary angioplasty implant and graft; Z88.0 Allergy status to penicillin; Z88.5 Allergy status to narcotic agent; Z88.1 Allergy status to other antibiotic agents; Z88.8 Allergy status to other drugs, medicaments and biological substances; Z91.013 Allergy to seafood; Z91.041 Radiographic dye allergy status; Z79.02 Long term (current) use of antithrombotics/antiplatelets; Z79.899 Other long term (current) drug therapy; Z79.82 Long term (current) use of aspirin; Z79.4 Long term (current) use of insulin; Z79.85 Long-term (current) use of injectable non-insulin antidiabetic drugs; Z79.51 Long term (current) use of inhaled steroids
CPT/HCPCS: 36415; 71046; 80053; 84484; 85025; 93005; 96360; 99285; A9270; J7030; 93010; 99284

== ENCOUNTER 2025-03-14 17:12 | Inpatient (IN) | payer MEDICARE, OTHER ==
[2025-03-14] MEDS: Albuterol/Ipratropium 3.0-0.5 MG/3 ML Neb Soln NEB ONE ×2 (19:07→19:52)
[2025-03-14] MEDS ORDERED: Naloxone 0.4 MG/ML SDV IVPUSH PRN (19:20)
[2025-03-14 19:40] LABS: BASOPHILS ABSOLUTE AUTO 0.1 K/mm3 (0.0-0.2); EOSINOPHILS ABSOLUTE AUTO 0.8 K/mm3 (0.0-0.4); EOSINOPHILS PERCENT AUTO 10.4 % (0.0-6.0); HEMATOCRIT 47.3 % (42.0-52.0); HEMOGLOBIN 15.6 gm/dl (14.0-18.0); IMMATURE GRAN ABSOLUTE AUTO 0.04 K/mm3 (0.00-0.05); IMMATURE GRAN PERCENT AUTO 0.5 % (0.0-0.4); LYMPHOCYTES ABSOLUTE AUTO 1.6 K/mm3 (1.0-4.8); LYMPHOCYTES PERCENT AUTO 19.8 % (24.0-44.0); MEAN CORPUSCULAR HEMOGLOBIN 29.9 pg (28.0-32.0); MEAN CORPUSCULAR VOLUME 90.6 fl (83.0-99.0); MEAN PLATELET VOLUME 9.3 fl (9.4-12.4); MONOCYTES ABSOLUTE AUTO 0.8 K/mm3 (0.0-0.8); MONOCYTES PERCENT AUTO 10.6 % (0.0-8.0); NEUTROPHILS ABSOLUTE AUTO 4.6 K/mm3 (1.8-7.7); NEUTROPHILS PERCENT AUTO 57.7 % (41.0-71.0); PLATELET COUNT,PLT 227 K/mm3 (150-400); RED BLOOD CELL COUNT 5.22 M/mm3 (4.52-5.90); WHITE BLOOD CELL COUNT,WBC 7.92 K/mm3 (3.9-11.3)
[2025-03-14] MEDS: Aspirin 81 MG Tab.Chew PO ONE (20:03)
[2025-03-14] MEDS: HYDROmorphone 0.5 MG/0.5 ML Syringe IVPUSH ONE (20:03)
[2025-03-14] MEDS: methylPREDNISolone Sodium Succinate 125 MG/2 ML SDV IVPUSH ONE (20:04)
[2025-03-14] MEDS: Aspirin 81 MG Tab.EC ONE (20:19)
[2025-03-14 20:20] LABS: A/G RATIO 0.8 (1-2); ALBUMIN 3.4 g/dl (3.4-5.0); ANION GAP 12.1 (5-15); BILIRUBIN TOTAL 0.3 mg/dL (0.2-1.0); CALCIUM 9.2 mg/dL (8.5-10.1); EST CRCL DRUG DOSING (CG) 85.45 mL/min; POTASSIUM,K 4.1 mEq/L (3.5-5.1); PROTEIN TOTAL,TP 7.5 g/dl (6.4-8.2)
[2025-03-14] MEDS: Ondansetron 4 MG/2 ML SDV IVPUSH ONE (21:15)
[2025-03-14] MEDS: Albuterol/Ipratropium 3.0-0.5 MG/3 ML Neb Soln NEB SCH (22:16)
[2025-03-14] MEDS: Carvedilol 12.5 MG Tab PO SCH (23:04)
[2025-03-14] MEDS: traMADol 50 MG Tab PO PRN (23:05)
[2025-03-15] MEDS: oxyCODONE 5 MG Tab PO PRN (00:49)
[2025-03-15] MEDS: Acetaminophen 325 MG Tab PO PRN (02:46)
[2025-03-15] MEDS ORDERED: 50% Dextrose in Water 50 ML Syringe IVPUSH PRN (07:30)
[2025-03-15] MEDS: Insulin Lispro 100 Unit/ML 3 ML KwikPen SUBCUT SCH (08:34)
[2025-03-15] MEDS: Aspirin 81 MG Tab.Chew PO SCH (08:36)
[2025-03-15] MEDS: DULoxetine 30 MG Cap PO SCH (08:37)
[2025-03-15] MEDS: Carvedilol 12.5 MG Tab PO SCH (08:39)
[2025-03-15] MEDS: Clopidogrel 75 MG Tab PO SCH (08:42)
[2025-03-15] MEDS: Empagliflozin 10 MG Tab PO SCH (08:42)
[2025-03-15] MEDS ORDERED: carBAMazepine 200 MG Tab PO SCH (09:00)
[2025-03-15] MEDS ORDERED: DULOXETINE 60 MG PO SCH (09:00)
[2025-03-15] MEDS: Losartan 50 MG Tab PO SCH (09:47)
[2025-03-15] MEDS: Enoxaparin 40 MG/0.4 ML Syringe SUBCUT SCH (09:47)
[2025-03-15] MEDS: Pantoprazole 40 MG Tab.CR PO SCH (09:48)
[2025-03-15] MEDS: Hydrochlorothiazide 12.5 MG Cap PO SCH (09:48)
[2025-03-15] MEDS: Tiotropium BR/Olodaterol HCL 4 GM Inhalation Spray 2.5mcg/1 dose; 10 doses INH SCH (10:08)
[2025-03-15] MEDS: ISOSORBIDE MONONITRATE 20 MG PO SCH (10:24)
[2025-03-15] MEDS: Insulin Glargine,Human Rec. Analog 100 Units/ML 3 ML Pen SUBCUT SCH (10:40)
[2025-03-15] MEDS ORDERED: Aspirin 81 MG Tab.EC PO ONE (13:00)
[2025-03-15 13:09] LABS: BASOPHILS PERCENT AUTO 0.2 % (0.0-1.0); EOSINOPHILS PERCENT AUTO 0.2 % (0.0-6.0); HEMATOCRIT 46.3 % (42.0-52.0); HEMOGLOBIN 15.5 gm/dl (14.0-18.0); IMMATURE GRAN ABSOLUTE AUTO 0.09 K/mm3 (0.00-0.05); IMMATURE GRAN PERCENT AUTO 0.7 % (0.0-0.4); LYMPHOCYTES ABSOLUTE AUTO 1.4 K/mm3 (1.0-4.8); MEAN CORPUSCULAR HEMOGLOBIN 30.2 pg (28.0-32.0); MEAN CORPUSCULAR HGB CONC 33.5 g/dl (32.0-36.0); MEAN CORPUSCULAR VOLUME 90.3 fl (83.0-99.0); MEAN PLATELET VOLUME 9.1 fl (9.4-12.4); MONOCYTES PERCENT AUTO 7.8 % (0.0-8.0); NEUTROPHILS ABSOLUTE AUTO 10.2 K/mm3 (1.8-7.7); NEUTROPHILS PERCENT AUTO 80.1 % (41.0-71.0); PLATELET COUNT,PLT 243 K/mm3 (150-400); RED BLOOD CELL COUNT 5.13 M/mm3 (4.52-5.90); WHITE BLOOD CELL COUNT,WBC 12.69 K/mm3 (3.9-11.3)
[2025-03-15] MEDS: LORazepam 2 MG/ML SDV IVPUSH ONE (13:12)
[2025-03-15] MEDS: Nitroglycerin 0.4 MG Tab.SL SL ONE (13:16)
[2025-03-15] MEDS: Aspirin 81 MG Tab.Chew PO ONE (13:17)
[2025-03-15] MEDS ORDERED: NITROGLYCERIN 6.5 MG PO ONE (13:30)
[2025-03-15 13:38] LABS: A/G RATIO 0.8 (1-2); ALBUMIN 3.5 g/dl (3.4-5.0); ANION GAP 15.1 (5-15); BILIRUBIN TOTAL 0.5 mg/dL (0.2-1.0); BUN/CREATININE RATIO 15.5 (14-18); CALCIUM 9.4 mg/dL (8.5-10.1); CREATININE 1.1 mg/dL (0.7-1.3); EST CRCL DRUG DOSING (CG) 77.68 mL/min; POTASSIUM,K 4.1 mEq/L (3.5-5.1); PROTEIN TOTAL,TP 7.7 g/dl (6.4-8.2)
[2025-03-15 13:40] LABS: MAGNESIUM 2.2 mg/dL (1.8-2.4)
[2025-03-15] MEDS ORDERED: Albuterol/Ipratropium 3.0-0.5 MG/3 ML Neb Soln NEB SCH (16:00)
[2025-03-15] MEDS ORDERED: Docusate Sodium 100 MG Cap PO PRN (16:16)
[2025-03-15] MEDS ORDERED: Ondansetron 4 MG/2 ML SDV IV PRN (16:16)
[2025-03-15] MEDS ORDERED: Polyethylene Glycol 3350 Powder 17 GM Packet PO PRN (16:16)
[2025-03-15] MEDS: Ondansetron 4 MG Tab.DIS PO PRN (16:41)
[2025-03-15] MEDS: atorvaSTATin 40 MG Tab PO SCH (20:19)
[2025-03-15] MEDS: ClonazePAM 1 MG Tab PO PRN (20:19)
[2025-03-15] MEDS: Metoprolol Tartrate 100 MG Tab PO SCH (20:19)
[2025-03-15] MEDS: rOPINIRole 1 MG Tab PO SCH (20:20)
[2025-03-15] MEDS: Tamsulosin 0.4 MG Cap.ER PO SCH (20:25)
[2025-03-15] MEDS: Albuterol/Ipratropium 3.0-0.5 MG/3 ML Neb Soln NEB SCH (20:50)
[2025-03-15] MEDS ORDERED: Carvedilol 12.5 MG Tab PO SCH (21:00)
[2025-03-16 04:11] LABS: BASOPHILS ABSOLUTE AUTO 0.1 K/mm3 (0.0-0.2); BASOPHILS PERCENT AUTO 0.7 % (0.0-1.0); EOSINOPHILS ABSOLUTE AUTO 0.4 K/mm3 (0.0-0.4); HEMATOCRIT 46.9 % (42.0-52.0); HEMOGLOBIN 15.7 gm/dl (14.0-18.0); IMMATURE GRAN ABSOLUTE AUTO 0.05 K/mm3 (0.00-0.05); IMMATURE GRAN PERCENT AUTO 0.5 % (0.0-0.4); LYMPHOCYTES ABSOLUTE AUTO 2.2 K/mm3 (1.0-4.8); LYMPHOCYTES PERCENT AUTO 23.5 % (24.0-44.0); MEAN CORPUSCULAR HEMOGLOBIN 30.1 pg (28.0-32.0); MEAN CORPUSCULAR HGB CONC 33.5 g/dl (32.0-36.0); MEAN PLATELET VOLUME 9.2 fl (9.4-12.4); NEUTROPHILS ABSOLUTE AUTO 5.8 K/mm3 (1.8-7.7); NEUTROPHILS PERCENT AUTO 61.3 % (41.0-71.0); PLATELET COUNT,PLT 215 K/mm3 (150-400); RED BLOOD CELL COUNT 5.21 M/mm3 (4.52-5.90); WHITE BLOOD CELL COUNT,WBC 9.49 K/mm3 (3.9-11.3)
[2025-03-16 04:56] LABS: A/G RATIO 0.9 (1-2); ALBUMIN 3.4 g/dl (3.4-5.0); ANION GAP 13.2 (5-15); BILIRUBIN TOTAL 0.4 mg/dL (0.2-1.0); BUN/CREATININE RATIO 16.4 (14-18); CALCIUM 9.4 mg/dL (8.5-10.1); CREATININE 1.1 mg/dL (0.7-1.3); EST CRCL DRUG DOSING (CG) 77.68 mL/min; MAGNESIUM 2.4 mg/dL (1.8-2.4); PROTEIN TOTAL,TP 7.3 g/dl (6.4-8.2)
[2025-03-16 05:00] LABS: POTASSIUM,K 4.2 mEq/L (3.5-5.1)
[2025-03-16] MEDS: predniSONE 20 MG Tab PO SCH (06:15)
[2025-03-16] MEDS: methylPREDNISolone Sodium Succinate 40 MG/1 ML SDV IVPUSH SCH (13:46)
[2025-03-16] MEDS: Nitroglycerin 0.4 MG Tab.SL SL ONE (22:12)
[2025-03-17] MEDS: Albuterol/Ipratropium 3.0-0.5 MG/3 ML Neb Soln NEB PRN (02:18)
[2025-03-17 04:37] LABS: BASOPHILS PERCENT AUTO 0.1 % (0.0-1.0); EOSINOPHILS PERCENT AUTO 0.1 % (0.0-6.0); HEMATOCRIT 47.8 % (42.0-52.0); HEMOGLOBIN 15.8 gm/dl (14.0-18.0); IMMATURE GRAN ABSOLUTE AUTO 0.15 K/mm3 (0.00-0.05); IMMATURE GRAN PERCENT AUTO 1.1 % (0.0-0.4); LYMPHOCYTES ABSOLUTE AUTO 1.5 K/mm3 (1.0-4.8); MEAN CORPUSCULAR HGB CONC 33.1 g/dl (32.0-36.0); MEAN CORPUSCULAR VOLUME 90.7 fl (83.0-99.0); MONOCYTES PERCENT AUTO 7.4 % (0.0-8.0); NEUTROPHILS ABSOLUTE AUTO 11.2 K/mm3 (1.8-7.7); NEUTROPHILS PERCENT AUTO 80.3 % (41.0-71.0); PLATELET COUNT,PLT 243 K/mm3 (150-400); RED BLOOD CELL COUNT 5.27 M/mm3 (4.52-5.90); WHITE BLOOD CELL COUNT,WBC 13.97 K/mm3 (3.9-11.3)
[2025-03-17 04:55] LABS: A/G RATIO 0.9 (1-2); ALBUMIN 3.5 g/dl (3.4-5.0); BILIRUBIN TOTAL 0.5 mg/dL (0.2-1.0); BUN/CREATININE RATIO 19.2 (14-18); CALCIUM 9.6 mg/dL (8.5-10.1); CREATININE 1.2 mg/dL (0.7-1.3); EST CRCL DRUG DOSING (CG) 71.21 mL/min; MAGNESIUM 2.3 mg/dL (1.8-2.4); PROTEIN TOTAL,TP 7.5 g/dl (6.4-8.2)
== END 2025-03-17 13:00 | disposition home or self-care (01) | DRG 191 ==
LOC: JD.ED 17:12 → JD.MS 22:11
PROVIDERS: ADMIT Family Medicine; ATTEND Student in an Organized Health Care Education/Training Program
DX: J44.1 Chronic obstructive pulmonary disease with (acute) exacerbation (principal); Z68.41 Body mass index [BMI] 40.0-44.9, adult; I10 Essential (primary) hypertension; I25.10 Atherosclerotic heart disease of native coronary artery without angina pectoris; R07.89 Other chest pain; F41.9 Anxiety disorder, unspecified; H54.7 Unspecified visual loss; E78.00 Pure hypercholesterolemia, unspecified; G47.30 Sleep apnea, unspecified; K21.9 Gastro-esophageal reflux disease without esophagitis; N40.0 Benign prostatic hyperplasia without lower urinary tract symptoms; M54.9 Dorsalgia, unspecified; M19.90 Unspecified osteoarthritis, unspecified site; G89.29 Other chronic pain; Z91.048 Other nonmedicinal substance allergy status; G43.909 Migraine, unspecified, not intractable, without status migrainosus; E11.69 Type 2 diabetes mellitus with other specified complication; E66.9 Obesity, unspecified; Z98.890 Other specified postprocedural states; I25.2 Old myocardial infarction; Z86.718 Personal history of other venous thrombosis and embolism; Z87.442 Personal history of urinary calculi; Z86.73 Personal history of transient ischemic attack (TIA), and cerebral infarction without residual deficits; Z95.5 Presence of coronary angioplasty implant and graft; Z90.49 Acquired absence of other specified parts of digestive tract; Z88.1 Allergy status to other antibiotic agents; Z88.0 Allergy status to penicillin; Z88.5 Allergy status to narcotic agent; Z91.013 Allergy to seafood; Z88.8 Allergy status to other drugs, medicaments and biological substances; Z91.041 Radiographic dye allergy status; Z79.02 Long term (current) use of antithrombotics/antiplatelets; Z79.899 Other long term (current) drug therapy; Z79.82 Long term (current) use of aspirin; Z79.4 Long term (current) use of insulin; Z79.52 Long term (current) use of systemic steroids; Z79.891 Long term (current) use of opiate analgesic; Z87.891 Personal history of nicotine dependence; Z86.16 Personal history of COVID-19
CPT/HCPCS: 36415; 71045; 80053; 82947; 84484; 85025; 93005; 94640; 96374; 96375; 99285; A9270 ×4; J2405; J2919; 83735; 93010; 94761; 97161-GP; 97530-GP; 99284; J1171; J1650; J1815-GY; J2060; J7512

== ENCOUNTER 2025-03-31 11:58 | Emergency (ER) | payer MEDICARE, OTHER ==
[2025-03-31] MEDS ORDERED: Sodium Chloride 0.9% 10 ML Syringe FLUSH PRN (12:35)
[2025-03-31 12:43] LABS: BASOPHILS ABSOLUTE AUTO 0.1 K/mm3 (0.0-0.2); BASOPHILS PERCENT AUTO 0.7 % (0.0-1.0); EOSINOPHILS ABSOLUTE AUTO 0.6 K/mm3 (0.0-0.4); EOSINOPHILS PERCENT AUTO 5.6 % (0.0-6.0); IMMATURE GRAN ABSOLUTE AUTO 0.05 K/mm3 (0.00-0.05); IMMATURE GRAN PERCENT AUTO 0.5 % (0.0-0.4); LYMPHOCYTES ABSOLUTE AUTO 1.3 K/mm3 (1.0-4.8); LYMPHOCYTES PERCENT AUTO 12.4 % (24.0-44.0); MEAN PLATELET VOLUME 9.1 fl (9.4-12.4); MONOCYTES ABSOLUTE AUTO 0.8 K/mm3 (0.0-0.8); MONOCYTES PERCENT AUTO 8.0 % (0.0-8.0); NEUTROPHILS ABSOLUTE AUTO 7.4 K/mm3 (1.8-7.7); NEUTROPHILS PERCENT AUTO 72.8 % (41.0-71.0); NRBC ABSOLUTE 0.00 (0.00-0.02); NRBC PERCENT 0.0 % (0.0-0.2); PLATELET COUNT,PLT 225 K/mm3 (150-400); RED BLOOD CELL COUNT 5.20 M/mm3 (4.52-5.90); WHITE BLOOD CELL COUNT,WBC 10.09 K/mm3 (3.9-11.3)
[2025-03-31 13:12] LABS: A/G RATIO 0.9 (1-2); ALANINE AMINOTRANSFERASE,ALT 59.0 U/L (16-63); ASPARTATE AMNIOTRANSFERASE,AST 17.0 U/L (15-37); BILIRUBIN TOTAL 0.7 mg/dL (0.2-1.0); BLOOD UREA NITROGEN,BUN 9.0 mg/dL (7-18); CARBON DIOXIDE,CO2 24.0 mEq/L (21-32); CHLORIDE,CL 100.0 mEq/L (98-107); CREATININE 1.2 mg/dL (0.7-1.3); EST CRCL DRUG DOSING (CG) 71.21 mL/min; ESTIMATED GFR 68.0 mL/min (>60); GLUCOSE RANDOM 168.0 mg/dL (70-99); PROTEIN TOTAL,TP 7.5 g/dl (6.4-8.2); SODIUM,NA 137.0 mEq/L (136-145); TROPONIN I HIGH SENSITIVITY 4.0 pg/mL (<=76)
[2025-03-31 13:21] LABS: POTASSIUM,K 3.2 mEq/L (3.5-5.1)
[2025-03-31] MEDS: Orphenadrine 60 MG/2 ML Inj IM ONE (13:47)
[2025-03-31] MEDS: methylPREDNISolone Sodium Succinate 125 MG/2 ML SDV IVPUSH ONE (13:48)
== END 2025-03-31 15:20 | disposition home or self-care (01) ==
LOC: JD.ED 11:58
DX: J44.1 Chronic obstructive pulmonary disease with (acute) exacerbation (principal); I10 Essential (primary) hypertension; K21.9 Gastro-esophageal reflux disease without esophagitis; M19.90 Unspecified osteoarthritis, unspecified site; E78.00 Pure hypercholesterolemia, unspecified; E66.9 Obesity, unspecified; E11.9 Type 2 diabetes mellitus without complications; Z88.0 Allergy status to penicillin; Z88.8 Allergy status to other drugs, medicaments and biological substances; Z88.5 Allergy status to narcotic agent; Z91.013 Allergy to seafood; Z86.16 Personal history of COVID-19; Z79.82 Long term (current) use of aspirin; Z79.4 Long term (current) use of insulin; Z79.899 Other long term (current) drug therapy; Z68.41 Body mass index [BMI] 40.0-44.9, adult
CPT/HCPCS: 36415; 71046; 80053; 83880; 84484; 85025; 85379; 86140; 94640; 96372; 96374; 96375; 99285; A9270; J2360; J2919; 93010; 99284; J1171

== ENCOUNTER 2025-04-04 18:02 | Emergency (ER) | payer MEDICARE, OTHER ==
[2025-04-04 18:42] LABS: BASOPHILS ABSOLUTE AUTO 0.0 K/mm3 (0.0-0.2); BASOPHILS PERCENT AUTO 0.2 % (0.0-1.0); EOSINOPHILS ABSOLUTE AUTO 0.0 K/mm3 (0.0-0.4); EOSINOPHILS PERCENT AUTO 0.0 % (0.0-6.0); IMMATURE GRAN ABSOLUTE AUTO 0.08 K/mm3 (0.00-0.05); IMMATURE GRAN PERCENT AUTO 0.8 % (0.0-0.4); LYMPHOCYTES ABSOLUTE AUTO 0.9 K/mm3 (1.0-4.8); LYMPHOCYTES PERCENT AUTO 8.2 % (24.0-44.0); MEAN PLATELET VOLUME 9.0 fl (9.4-12.4); MONOCYTES ABSOLUTE AUTO 0.3 K/mm3 (0.0-0.8); MONOCYTES PERCENT AUTO 3.2 % (0.0-8.0); NEUTROPHILS ABSOLUTE AUTO 9.3 K/mm3 (1.8-7.7); NEUTROPHILS PERCENT AUTO 87.6 % (41.0-71.0); NRBC ABSOLUTE 0.00 (0.00-0.02); NRBC PERCENT 0.0 % (0.0-0.2); PLATELET COUNT,PLT 275 K/mm3 (150-400); RED BLOOD CELL COUNT 5.15 M/mm3 (4.52-5.90); WHITE BLOOD CELL COUNT,WBC 10.59 K/mm3 (3.9-11.3)
[2025-04-04 19:09] LABS: A/G RATIO 1.0 (1-2); ALANINE AMINOTRANSFERASE,ALT 68.0 U/L (16-63); ASPARTATE AMNIOTRANSFERASE,AST 25.0 U/L (15-37); BILIRUBIN TOTAL 0.4 mg/dL (0.2-1.0); BLOOD UREA NITROGEN,BUN 14.0 mg/dL (7-18); CARBON DIOXIDE,CO2 26.0 mEq/L (21-32); CHLORIDE,CL 97.0 mEq/L (98-107); CREATINE KINASE,CK 330.0 U/L (39-308); CREATININE 1.3 mg/dL (0.7-1.3); EST CRCL DRUG DOSING (CG) 65.73 mL/min; ESTIMATED GFR 62.0 mL/min (>60); GLUCOSE RANDOM 196.0 mg/dL (70-99); POTASSIUM,K 4.3 mEq/L (3.5-5.1); PROTEIN TOTAL,TP 7.6 g/dl (6.4-8.2); SODIUM,NA 135.0 mEq/L (136-145)
== END 2025-04-04 19:28 | disposition home or self-care (01) ==
LOC: JD.ED 18:02
DX: F41.9 Anxiety disorder, unspecified (principal); E11.65 Type 2 diabetes mellitus with hyperglycemia; E78.00 Pure hypercholesterolemia, unspecified; E66.9 Obesity, unspecified; K21.9 Gastro-esophageal reflux disease without esophagitis; Z88.8 Allergy status to other drugs, medicaments and biological substances; Z88.5 Allergy status to narcotic agent; Z91.041 Radiographic dye allergy status; Z88.0 Allergy status to penicillin; Z79.4 Long term (current) use of insulin; Z79.82 Long term (current) use of aspirin; Z79.899 Other long term (current) drug therapy; Z86.16 Personal history of COVID-19; Z90.49 Acquired absence of other specified parts of digestive tract; Z79.01 Long term (current) use of anticoagulants; Z86.73 Personal history of transient ischemic attack (TIA), and cerebral infarction without residual deficits
CPT/HCPCS: 36415; 70450; 80053; 82550; 82947; 83735; 85025; 99285; A9270; 99284

== ENCOUNTER 2025-04-16 21:32 | Emergency (ER) | payer MEDICARE, OTHER ==
[2025-04-16] MEDS ORDERED: Sodium Chloride 0.9% 10 ML Syringe FLUSH PRN (22:10)
[2025-04-16 22:17] LABS: BASOPHILS ABSOLUTE AUTO 0.1 K/mm3 (0.0-0.2); BASOPHILS PERCENT AUTO 0.9 % (0.0-1.0); EOSINOPHILS ABSOLUTE AUTO 0.3 K/mm3 (0.0-0.4); EOSINOPHILS PERCENT AUTO 3.7 % (0.0-6.0); IMMATURE GRAN ABSOLUTE AUTO 0.07 K/mm3 (0.00-0.05); IMMATURE GRAN PERCENT AUTO 0.8 % (0.0-0.4); LYMPHOCYTES ABSOLUTE AUTO 1.8 K/mm3 (1.0-4.8); LYMPHOCYTES PERCENT AUTO 21.0 % (24.0-44.0); MEAN PLATELET VOLUME 9.4 fl (9.4-12.4); MONOCYTES ABSOLUTE AUTO 0.8 K/mm3 (0.0-0.8); MONOCYTES PERCENT AUTO 9.2 % (0.0-8.0); NEUTROPHILS ABSOLUTE AUTO 5.5 K/mm3 (1.8-7.7); NEUTROPHILS PERCENT AUTO 64.4 % (41.0-71.0); NRBC ABSOLUTE 0.00 (0.00-0.02); NRBC PERCENT 0.0 % (0.0-0.2); PLATELET COUNT,PLT 268 K/mm3 (150-400); RED BLOOD CELL COUNT 5.32 M/mm3 (4.52-5.90); WHITE BLOOD CELL COUNT,WBC 8.56 K/mm3 (3.9-11.3)
[2025-04-16 22:37] LABS: A/G RATIO 1.0 (1-2); ALANINE AMINOTRANSFERASE,ALT 62 U/L (16-63); ASPARTATE AMNIOTRANSFERASE,AST 24 U/L (15-37); BILIRUBIN TOTAL 0.4 mg/dL (0.2-1.0); BLOOD UREA NITROGEN,BUN 15 mg/dL (7-18); CARBON DIOXIDE,CO2 27 mEq/L (21-32); CHLORIDE,CL 101 mEq/L (98-107); CREATININE 1.5 mg/dL (0.7-1.3); ESTIMATED GFR 52 mL/min (>60); GLUCOSE RANDOM 180 mg/dL (70-99); POTASSIUM,K 4.2 mEq/L (3.5-5.1); PROTEIN TOTAL,TP 7.2 g/dl (6.4-8.2); SODIUM,NA 138 mEq/L (136-145); TROPONIN I HIGH SENSITIVITY 5 pg/mL (<=76)
[2025-04-16] MEDS: fentaNYL 100 MCG/2 ML SDV IVPUSH ONE (23:21)
== END 2025-04-17 00:10 | disposition home or self-care (01) ==
LOC: JD.ED 21:32
DX: R07.89 Other chest pain (principal); I10 Essential (primary) hypertension; I25.2 Old myocardial infarction; I25.10 Atherosclerotic heart disease of native coronary artery without angina pectoris; K21.9 Gastro-esophageal reflux disease without esophagitis; E78.00 Pure hypercholesterolemia, unspecified; E11.9 Type 2 diabetes mellitus without complications; J44.89 Other specified chronic obstructive pulmonary disease; Z95.5 Presence of coronary angioplasty implant and graft; Z88.0 Allergy status to penicillin; Z86.73 Personal history of transient ischemic attack (TIA), and cerebral infarction without residual deficits; Z88.5 Allergy status to narcotic agent; Z88.1 Allergy status to other antibiotic agents; Z91.013 Allergy to seafood; Z91.041 Radiographic dye allergy status; Z88.8 Allergy status to other drugs, medicaments and biological substances; Z79.899 Other long term (current) drug therapy; Z79.82 Long term (current) use of aspirin; Z79.51 Long term (current) use of inhaled steroids; Z79.4 Long term (current) use of insulin; Z90.49 Acquired absence of other specified parts of digestive tract; Z86.16 Personal history of COVID-19; Z79.02 Long term (current) use of antithrombotics/antiplatelets
CPT/HCPCS: 36415; 71045; 80053; 83735; 84484; 85025; 93005; 96374; 99285; J3010

== ENCOUNTER 2025-04-23 22:06 | Emergency (ER) | payer MEDICARE, OTHER ==
[2025-04-23] MEDS ORDERED: Sodium Chloride 0.9% 10 ML Syringe FLUSH PRN (22:12)
[2025-04-23 22:27] LABS: BASOPHILS ABSOLUTE AUTO 0.1 K/mm3 (0.0-0.2); BASOPHILS PERCENT AUTO 1.0 % (0.0-1.0); EOSINOPHILS ABSOLUTE AUTO 0.3 K/mm3 (0.0-0.4); EOSINOPHILS PERCENT AUTO 3.1 % (0.0-6.0); IMMATURE GRAN ABSOLUTE AUTO 0.05 K/mm3 (0.00-0.05); IMMATURE GRAN PERCENT AUTO 0.6 % (0.0-0.4); LYMPHOCYTES ABSOLUTE AUTO 2.2 K/mm3 (1.0-4.8); LYMPHOCYTES PERCENT AUTO 25.3 % (24.0-44.0); MEAN PLATELET VOLUME 9.5 fl (9.4-12.4); MONOCYTES ABSOLUTE AUTO 1.0 K/mm3 (0.0-0.8); MONOCYTES PERCENT AUTO 11.7 % (0.0-8.0); NEUTROPHILS ABSOLUTE AUTO 5.1 K/mm3 (1.8-7.7); NEUTROPHILS PERCENT AUTO 58.3 % (41.0-71.0); NRBC ABSOLUTE 0.00 (0.00-0.02); NRBC PERCENT 0.0 % (0.0-0.2); PLATELET COUNT,PLT 254 K/mm3 (150-400); RED BLOOD CELL COUNT 5.40 M/mm3 (4.52-5.90); WHITE BLOOD CELL COUNT,WBC 8.66 K/mm3 (3.9-11.3)
[2025-04-23] MEDS ORDERED: Naloxone 0.4 MG/ML SDV IVPUSH PRN ×2 (22:30→22:38)
[2025-04-23] MEDS: Labetalol 100 MG/20 ML MDV IVPUSH ONE (22:36)
[2025-04-23 23:27] LABS: A/G RATIO 1.0 (1-2); ALANINE AMINOTRANSFERASE,ALT 63.0 U/L (16-63); ASPARTATE AMNIOTRANSFERASE,AST 28.0 U/L (15-37); BILIRUBIN TOTAL 0.4 mg/dL (0.2-1.0); BLOOD UREA NITROGEN,BUN 11.0 mg/dL (7-18); CARBON DIOXIDE,CO2 27.0 mEq/L (21-32); CHLORIDE,CL 104.0 mEq/L (98-107); CREATININE 1.2 mg/dL (0.7-1.3); EST CRCL DRUG DOSING (CG) 51.34 mL/min; ESTIMATED GFR 68.0 mL/min (>60); GLUCOSE RANDOM 136.0 mg/dL (70-99); POTASSIUM,K 3.9 mEq/L (3.5-5.1); PROTEIN TOTAL,TP 7.2 g/dl (6.4-8.2); SODIUM,NA 140.0 mEq/L (136-145); TROPONIN I HIGH SENSITIVITY 5.0 pg/mL (<=76)
[2025-04-24] MEDS: Alum Hydrox/Mag Hydrox/Simeth 30 ML, Lidocaine 2% 15 ML PO ONE (00:21)
[2025-04-24] MEDS: Acetaminophen/oxyCODONE 325-5 MG Tab PO ONE (00:21)
[2025-04-24] MEDS: diphenhydrAMINE 50 MG/ML SDV IVPUSH ONE (01:39)
[2025-04-24] MEDS: methylPREDNISolone Sodium Succinate 125 MG/2 ML SDV IVPUSH ONE (01:40)
[2025-04-24] MEDS: Ondansetron 4 MG/2 ML SDV IVPUSH ONE (01:40)
[2025-04-24] MEDS: Iopamidol 755 Mg/ML 100 ML Bottle IVPUSH ONE (02:11)
[2025-04-24] MEDS: Sodium Chloride 0.9% 10 ML Syringe FLUSH PRN (02:12)
== END 2025-04-24 04:33 | disposition home or self-care (01) ==
LOC: JD.ED 22:06
DX: R07.89 Other chest pain (principal); E78.00 Pure hypercholesterolemia, unspecified; I10 Essential (primary) hypertension; I25.2 Old myocardial infarction; I25.10 Atherosclerotic heart disease of native coronary artery without angina pectoris; E11.9 Type 2 diabetes mellitus without complications; J44.89 Other specified chronic obstructive pulmonary disease; K21.9 Gastro-esophageal reflux disease without esophagitis; Z88.1 Allergy status to other antibiotic agents; Z88.5 Allergy status to narcotic agent; Z88.0 Allergy status to penicillin; Z91.013 Allergy to seafood; Z91.041 Radiographic dye allergy status; Z88.8 Allergy status to other drugs, medicaments and biological substances; Z79.02 Long term (current) use of antithrombotics/antiplatelets; Z79.899 Other long term (current) drug therapy; Z79.51 Long term (current) use of inhaled steroids; Z79.4 Long term (current) use of insulin; Z90.49 Acquired absence of other specified parts of digestive tract
CPT/HCPCS: 36415; 71045; 71275; 80053; 83735; 83880; 84484; 85025; 93005; 94640; 96374; 96375; 96376; 99285; A9270; J1200; J1920; J2405; J2919; Q9967; 93010; 99284; J1171

== ENCOUNTER 2025-04-26 22:19 | Emergency (ER) | payer MEDICARE, OTHER ==
[2025-04-26 23:01] LABS: BASOPHILS ABSOLUTE AUTO 0.1 K/mm3 (0.0-0.2); BASOPHILS PERCENT AUTO 1.0 % (0.0-1.0); EOSINOPHILS ABSOLUTE AUTO 0.3 K/mm3 (0.0-0.4); EOSINOPHILS PERCENT AUTO 2.8 % (0.0-6.0); IMMATURE GRAN ABSOLUTE AUTO 0.09 K/mm3 (0.00-0.05); IMMATURE GRAN PERCENT AUTO 1.0 % (0.0-0.4); LYMPHOCYTES ABSOLUTE AUTO 2.1 K/mm3 (1.0-4.8); LYMPHOCYTES PERCENT AUTO 23.9 % (24.0-44.0); MEAN PLATELET VOLUME 9.2 fl (9.4-12.4); MONOCYTES ABSOLUTE AUTO 0.9 K/mm3 (0.0-0.8); MONOCYTES PERCENT AUTO 10.4 % (0.0-8.0); NEUTROPHILS ABSOLUTE AUTO 5.5 K/mm3 (1.8-7.7); NEUTROPHILS PERCENT AUTO 60.9 % (41.0-71.0); NRBC ABSOLUTE 0.00 (0.00-0.02); NRBC PERCENT 0.0 % (0.0-0.2); PLATELET COUNT,PLT 275 K/mm3 (150-400); RED BLOOD CELL COUNT 5.19 M/mm3 (4.52-5.90); WHITE BLOOD CELL COUNT,WBC 8.96 K/mm3 (3.9-11.3)
[2025-04-26] MEDS: Sodium Chloride 0.9% 10 ML Syringe FLUSH PRN (23:09)
[2025-04-26 23:22] LABS: A/G RATIO 1.0 (1-2); ALANINE AMINOTRANSFERASE,ALT 80.0 U/L (16-63); ASPARTATE AMNIOTRANSFERASE,AST 41.0 U/L (15-37); BILIRUBIN TOTAL 0.5 mg/dL (0.2-1.0); BLOOD UREA NITROGEN,BUN 17.0 mg/dL (7-18); CARBON DIOXIDE,CO2 28.0 mEq/L (21-32); CHLORIDE,CL 101.0 mEq/L (98-107); CREATININE 1.2 mg/dL (0.7-1.3); EST CRCL DRUG DOSING (CG) 71.21 mL/min; ESTIMATED GFR 68.0 mL/min (>60); GLUCOSE RANDOM 138.0 mg/dL (70-99); POTASSIUM,K 3.9 mEq/L (3.5-5.1); PROTEIN TOTAL,TP 7.2 g/dl (6.4-8.2); SODIUM,NA 138.0 mEq/L (136-145); TROPONIN I HIGH SENSITIVITY 7.0 pg/mL (<=76)
== END 2025-04-27 00:27 | disposition home or self-care (01) ==
LOC: JD.ED 22:19
DX: R07.89 Other chest pain (principal); I25.2 Old myocardial infarction; I10 Essential (primary) hypertension; E78.00 Pure hypercholesterolemia, unspecified; J44.89 Other specified chronic obstructive pulmonary disease; K21.9 Gastro-esophageal reflux disease without esophagitis; M19.90 Unspecified osteoarthritis, unspecified site; E11.9 Type 2 diabetes mellitus without complications; Z86.16 Personal history of COVID-19; Z90.49 Acquired absence of other specified parts of digestive tract; Z88.1 Allergy status to other antibiotic agents; Z88.0 Allergy status to penicillin; Z88.5 Allergy status to narcotic agent; Z88.8 Allergy status to other drugs, medicaments and biological substances; Z91.018 Allergy to other foods; Z91.013 Allergy to seafood; Z91.041 Radiographic dye allergy status; Z79.82 Long term (current) use of aspirin; Z79.51 Long term (current) use of inhaled steroids; Z79.4 Long term (current) use of insulin; Z79.899 Other long term (current) drug therapy
CPT/HCPCS: 36415; 71045; 71045-26; 80053; 83735; 84484; 85025; 93005; 93010; 96374; 99284; 99285-25; J1171

== ENCOUNTER 2025-05-01 15:12 | Emergency (ER) | payer MEDICARE, OTHER | END 2025-05-01 17:30 | disposition home or self-care (01) | LOC: JD.ED 15:12 | DX: M54.50 Low back pain, unspecified (principal); I10 Essential (primary) hypertension; R51.9 Headache, unspecified; M54.2 Cervicalgia; E78.00 Pure hypercholesterolemia, unspecified; J45.909 Unspecified asthma, uncomplicated; E11.9 Type 2 diabetes mellitus without complications; Z88.5 Allergy status to narcotic agent; Z88.0 Allergy status to penicillin; Z88.8 Allergy status to other drugs, medicaments and biological substances; Z91.013 Allergy to seafood; Z79.82 Long term (current) use of aspirin; Z79.4 Long term (current) use of insulin; Z86.16 Personal history of COVID-19; Z90.49 Acquired absence of other specified parts of digestive tract; W19.XXXA Unspecified fall, initial encounter | CPT/HCPCS: 70450; 72125; 72131; 99284; A9270 ==

== ENCOUNTER 2025-05-22 19:35 | Emergency (ER) | payer MEDICARE, OTHER ==
[2025-05-22] MEDS: Ketorolac 30 MG/ML SDV IM ONE (20:44)
== END 2025-05-22 22:37 | disposition home or self-care (01) ==
LOC: JD.ED 19:35
DX: M54.50 Low back pain, unspecified (principal); I10 Essential (primary) hypertension; I25.2 Old myocardial infarction; I25.10 Atherosclerotic heart disease of native coronary artery without angina pectoris; E11.9 Type 2 diabetes mellitus without complications; E66.9 Obesity, unspecified; E78.00 Pure hypercholesterolemia, unspecified; J44.89 Other specified chronic obstructive pulmonary disease; K21.9 Gastro-esophageal reflux disease without esophagitis; Z79.899 Other long term (current) drug therapy; Z79.82 Long term (current) use of aspirin; Z88.5 Allergy status to narcotic agent; Z88.0 Allergy status to penicillin; Z88.8 Allergy status to other drugs, medicaments and biological substances; Z86.16 Personal history of COVID-19; Z90.49 Acquired absence of other specified parts of digestive tract; Z91.041 Radiographic dye allergy status; Z68.43 Body mass index [BMI] 50.0-59.9, adult; Z91.013 Allergy to seafood; W06.XXXA Fall from bed, initial encounter
CPT/HCPCS: 72128; 72131; 96372; 99284; J1885; 99283

== ENCOUNTER 2025-05-25 23:50 | Emergency (ER) | payer MEDICARE, OTHER ==
[2025-05-26] MEDS ORDERED: Sodium Chloride 0.9% 10 ML Syringe FLUSH PRN (01:04)
[2025-05-26] MEDS ORDERED: Ketorolac 15 MG/ML SDV IVPUSH ONE (01:05)
[2025-05-26 01:22] LABS: BASOPHILS ABSOLUTE AUTO 0.1 K/mm3 (0.0-0.2); BASOPHILS PERCENT AUTO 1.0 % (0.0-1.0); EOSINOPHILS ABSOLUTE AUTO 0.3 K/mm3 (0.0-0.4); EOSINOPHILS PERCENT AUTO 3.8 % (0.0-6.0); IMMATURE GRAN ABSOLUTE AUTO 0.06 K/mm3 (0.00-0.05); IMMATURE GRAN PERCENT AUTO 0.7 % (0.0-0.4); LYMPHOCYTES ABSOLUTE AUTO 1.8 K/mm3 (1.0-4.8); LYMPHOCYTES PERCENT AUTO 21.4 % (24.0-44.0); MEAN PLATELET VOLUME 9.7 fl (9.4-12.4); MONOCYTES ABSOLUTE AUTO 1.0 K/mm3 (0.0-0.8); MONOCYTES PERCENT AUTO 12.2 % (0.0-8.0); NEUTROPHILS ABSOLUTE AUTO 5.1 K/mm3 (1.8-7.7); NEUTROPHILS PERCENT AUTO 60.9 % (41.0-71.0); NRBC ABSOLUTE 0.00 (0.00-0.02); NRBC PERCENT 0.0 % (0.0-0.2); PLATELET COUNT,PLT 252 K/mm3 (150-400); RED BLOOD CELL COUNT 5.14 M/mm3 (4.52-5.90); WHITE BLOOD CELL COUNT,WBC 8.33 K/mm3 (3.9-11.3)
[2025-05-26] MEDS: Ketorolac 30 MG/ML SDV IM ONE (01:22)
[2025-05-26 02:10] LABS: A/G RATIO 0.9 (1-2); ALANINE AMINOTRANSFERASE,ALT 69 U/L (16-63); ASPARTATE AMNIOTRANSFERASE,AST 34 U/L (15-37); BILIRUBIN TOTAL 0.4 mg/dL (0.2-1.0); BLOOD UREA NITROGEN,BUN 22 mg/dL (7-18); CARBON DIOXIDE,CO2 27 mEq/L (21-32); CHLORIDE,CL 100 mEq/L (98-107); CREATININE 1.5 mg/dL (0.7-1.3); EST CRCL DRUG DOSING (CG) 56.97 mL/min; ESTIMATED GFR 52 mL/min (>60); GLUCOSE RANDOM 131 mg/dL (70-99); POTASSIUM,K 4.2 mEq/L (3.5-5.1); PROTEIN TOTAL,TP 7.3 g/dl (6.4-8.2); SODIUM,NA 136 mEq/L (136-145)
[2025-05-26 02:11] LABS: TROPONIN I HIGH SENSITIVITY < 4 pg/mL (<=76)
== END 2025-05-26 03:08 | disposition home or self-care (01) ==
LOC: JD.ED 23:50
DX: M54.2 Cervicalgia (principal); M25.512 Pain in left shoulder; I25.10 Atherosclerotic heart disease of native coronary artery without angina pectoris; I25.2 Old myocardial infarction; I10 Essential (primary) hypertension; J44.89 Other specified chronic obstructive pulmonary disease; E11.9 Type 2 diabetes mellitus without complications; K21.9 Gastro-esophageal reflux disease without esophagitis; Z86.73 Personal history of transient ischemic attack (TIA), and cerebral infarction without residual deficits; Z86.16 Personal history of COVID-19; Z79.899 Other long term (current) drug therapy; Z79.01 Long term (current) use of anticoagulants; Z88.0 Allergy status to penicillin; Z88.2 Allergy status to sulfonamides; Z88.5 Allergy status to narcotic agent; Z88.8 Allergy status to other drugs, medicaments and biological substances; Z91.013 Allergy to seafood; Z88.1 Allergy status to other antibiotic agents; Z91.041 Radiographic dye allergy status
CPT/HCPCS: 36415; 70450; 71045; 72125; 73060; 80053; 84484; 85025; 93005; 96372; 99284; J1885

== ENCOUNTER 2025-06-06 16:05 | Emergency (ER) | payer MEDICARE, OTHER ==
[2025-06-06] MEDS ORDERED: Sodium Chloride 0.9% 10 ML Syringe FLUSH PRN (16:55)
[2025-06-06 17:19] LABS: BASOPHILS ABSOLUTE AUTO 0.1 K/mm3 (0.0-0.2); BASOPHILS PERCENT AUTO 1.2 % (0.0-1.0); EOSINOPHILS ABSOLUTE AUTO 0.4 K/mm3 (0.0-0.4); EOSINOPHILS PERCENT AUTO 4.7 % (0.0-6.0); IMMATURE GRAN ABSOLUTE AUTO 0.04 K/mm3 (0.00-0.05); IMMATURE GRAN PERCENT AUTO 0.5 % (0.0-0.4); LYMPHOCYTES ABSOLUTE AUTO 2.1 K/mm3 (1.0-4.8); LYMPHOCYTES PERCENT AUTO 25.2 % (24.0-44.0); MEAN PLATELET VOLUME 9.4 fl (9.4-12.4); MONOCYTES ABSOLUTE AUTO 0.9 K/mm3 (0.0-0.8); MONOCYTES PERCENT AUTO 10.9 % (0.0-8.0); NEUTROPHILS ABSOLUTE AUTO 4.7 K/mm3 (1.8-7.7); NEUTROPHILS PERCENT AUTO 57.5 % (41.0-71.0); NRBC ABSOLUTE 0.00 (0.00-0.02); NRBC PERCENT 0.0 % (0.0-0.2); PLATELET COUNT,PLT 278 K/mm3 (150-400); RED BLOOD CELL COUNT 5.47 M/mm3 (4.52-5.90); WHITE BLOOD CELL COUNT,WBC 8.15 K/mm3 (3.9-11.3)
[2025-06-06 18:06] LABS: A/G RATIO 1.0 (1-2); ALANINE AMINOTRANSFERASE,ALT 71.0 U/L (16-63); ASPARTATE AMNIOTRANSFERASE,AST 31.0 U/L (15-37); BILIRUBIN TOTAL 0.4 mg/dL (0.2-1.0); BLOOD UREA NITROGEN,BUN 17.0 mg/dL (7-18); CARBON DIOXIDE,CO2 26.0 mEq/L (21-32); CHLORIDE,CL 101.0 mEq/L (98-107); CREATININE 2.1 mg/dL (0.7-1.3); EST CRCL DRUG DOSING (CG) 40.69 mL/min; ESTIMATED GFR 35.0 mL/min (>60); GLUCOSE RANDOM 162.0 mg/dL (70-99); POTASSIUM,K 4.0 mEq/L (3.5-5.1); PROTEIN TOTAL,TP 7.7 g/dl (6.4-8.2); SODIUM,NA 137.0 mEq/L (136-145); TROPONIN I HIGH SENSITIVITY 6.0 pg/mL (<=76)
== END 2025-06-06 19:37 | disposition home or self-care (01) ==
LOC: JD.ED 16:05
DX: M54.50 Low back pain, unspecified (principal); R51.9 Headache, unspecified; M54.2 Cervicalgia; I25.10 Atherosclerotic heart disease of native coronary artery without angina pectoris; E78.00 Pure hypercholesterolemia, unspecified; I10 Essential (primary) hypertension; I25.2 Old myocardial infarction; E11.9 Type 2 diabetes mellitus without complications; Z88.1 Allergy status to other antibiotic agents; Z88.5 Allergy status to narcotic agent; Z88.8 Allergy status to other drugs, medicaments and biological substances; Z91.013 Allergy to seafood; Z91.041 Radiographic dye allergy status; Z79.02 Long term (current) use of antithrombotics/antiplatelets; Z79.899 Other long term (current) drug therapy; Z79.82 Long term (current) use of aspirin; Z86.73 Personal history of transient ischemic attack (TIA), and cerebral infarction without residual deficits; Z86.16 Personal history of COVID-19; W01.198A Fall on same level from slipping, tripping and stumbling with subsequent striking against other object, initial encounter; Y93.89 Activity, other specified
CPT/HCPCS: 36415; 70450; 71045; 72125; 72131; 80053; 84484; 85025; 93005; 96361; 96374; 96376; 99284; J7030; 93010; J1171

== ENCOUNTER 2025-06-08 14:02 | Emergency (ER) | payer MEDICARE, OTHER ==
[2025-06-08] MEDS ORDERED: Sodium Chloride 0.9% 10 ML Syringe FLUSH PRN (14:52)
[2025-06-08 15:03] LABS: BASOPHILS ABSOLUTE AUTO 0.1 K/mm3 (0.0-0.2); BASOPHILS PERCENT AUTO 1.3 % (0.0-1.0); EOSINOPHILS ABSOLUTE AUTO 0.3 K/mm3 (0.0-0.4); EOSINOPHILS PERCENT AUTO 4.7 % (0.0-6.0); IMMATURE GRAN ABSOLUTE AUTO 0.03 K/mm3 (0.00-0.05); IMMATURE GRAN PERCENT AUTO 0.5 % (0.0-0.4); LYMPHOCYTES ABSOLUTE AUTO 1.3 K/mm3 (1.0-4.8); LYMPHOCYTES PERCENT AUTO 24.3 % (24.0-44.0); MEAN PLATELET VOLUME 9.7 fl (9.4-12.4); MONOCYTES ABSOLUTE AUTO 0.6 K/mm3 (0.0-0.8); MONOCYTES PERCENT AUTO 11.4 % (0.0-8.0); NEUTROPHILS ABSOLUTE AUTO 3.2 K/mm3 (1.8-7.7); NEUTROPHILS PERCENT AUTO 57.8 % (41.0-71.0); NRBC ABSOLUTE 0.00 (0.00-0.02); NRBC PERCENT 0.0 % (0.0-0.2); PLATELET COUNT,PLT 243 K/mm3 (150-400); RED BLOOD CELL COUNT 5.20 M/mm3 (4.52-5.90); WHITE BLOOD CELL COUNT,WBC 5.52 K/mm3 (3.9-11.3)
[2025-06-08 15:10] LABS: APPEARANCE,URINE CLEAR (Clear); GLUCOSE,URINE 3+ (Negative); OCCULT BLOOD,URINE NEGATIVE (Negative)
[2025-06-08 15:28] LABS: A/G RATIO 0.9 (1-2); ALANINE AMINOTRANSFERASE,ALT 55 U/L (16-63); ASPARTATE AMNIOTRANSFERASE,AST 20 U/L (15-37); BILIRUBIN TOTAL 0.3 mg/dL (0.2-1.0); BLOOD UREA NITROGEN,BUN 10 mg/dL (7-18); CARBON DIOXIDE,CO2 25 mEq/L (21-32); CHLORIDE,CL 101 mEq/L (98-107); CREATININE 1.4 mg/dL (0.7-1.3); ESTIMATED GFR 56 mL/min (>60); GLUCOSE RANDOM 336 mg/dL (70-99); PROTEIN TOTAL,TP 7.3 g/dl (6.4-8.2); SODIUM,NA 137 mEq/L (136-145); TROPONIN I HIGH SENSITIVITY 12 pg/mL (<=76)
[2025-06-08 15:39] LABS: POTASSIUM,K 3.7 mEq/L (3.5-5.1)
[2025-06-08] MEDS: Alum Hydrox/Mag Hydrox/Simeth 30 ML, Lidocaine 2% 15 ML PO ONE (15:44)
[2025-06-08 15:45] LABS: O2 SATURATION VENOUS 85.4; PCO2 VENOUS 36.0 mmHg (41-51); PH,VENOUS 7.47 (7.30-7.40); PO2 VENOUS 53.0 mmHG (40-80)
[2025-06-08 15:46] LABS: BASE EXCESS VENOUS 2.8 (-4.0-2.0); BICARBONATE,VENOUS 26.2 meq/L (22-26)
[2025-06-08 17:20] LABS: OSMOLALITY,SERUM 304.0 mosm/kg (280-300)
[2025-06-08] MEDS ORDERED: Insulin Regular, Human 100 Units/ML 10 ML Vial IV ONE (17:32)
== END 2025-06-08 19:20 | disposition home or self-care (01) ==
LOC: JD.ED 14:02
DX: R07.9 Chest pain, unspecified (principal); E11.65 Type 2 diabetes mellitus with hyperglycemia; I25.10 Atherosclerotic heart disease of native coronary artery without angina pectoris; E78.00 Pure hypercholesterolemia, unspecified; I10 Essential (primary) hypertension; I25.2 Old myocardial infarction; J44.9 Chronic obstructive pulmonary disease, unspecified; K21.9 Gastro-esophageal reflux disease without esophagitis; Z86.16 Personal history of COVID-19; Z90.49 Acquired absence of other specified parts of digestive tract; Z88.5 Allergy status to narcotic agent; Z88.0 Allergy status to penicillin; Z88.8 Allergy status to other drugs, medicaments and biological substances; Z79.899 Other long term (current) drug therapy; Z91.013 Allergy to seafood; Z88.1 Allergy status to other antibiotic agents; Z79.02 Long term (current) use of antithrombotics/antiplatelets; Z79.82 Long term (current) use of aspirin; R06.02 Shortness of breath
CPT/HCPCS: 36415; 71045; 80053; 81003; 82803; 82947; 83690; 83735; 83880; 83930; 84484; 85025; 85379; 87428; 93005; 96360; 96361; 99285; A9270; J7030; 93010; 99284

== ENCOUNTER 2025-06-11 21:30 | Emergency (ER) | payer MEDICARE, OTHER ==
[2025-06-11] MEDS: Acetaminophen/oxyCODONE 325-5 MG Tab PO ONE (22:49)
== END 2025-06-11 22:45 | disposition home or self-care (01) ==
LOC: JD.ED 21:30
DX: G24.3 Spasmodic torticollis (principal); M62.830 Muscle spasm of back; I25.10 Atherosclerotic heart disease of native coronary artery without angina pectoris; E78.00 Pure hypercholesterolemia, unspecified; I10 Essential (primary) hypertension; I25.2 Old myocardial infarction; J44.89 Other specified chronic obstructive pulmonary disease; E11.9 Type 2 diabetes mellitus without complications; K21.9 Gastro-esophageal reflux disease without esophagitis; Z88.1 Allergy status to other antibiotic agents; Z88.5 Allergy status to narcotic agent; Z88.8 Allergy status to other drugs, medicaments and biological substances; Z91.013 Allergy to seafood; Z91.012 Allergy to eggs; Z79.899 Other long term (current) drug therapy; Z79.4 Long term (current) use of insulin; Z79.02 Long term (current) use of antithrombotics/antiplatelets; Z86.16 Personal history of COVID-19; Z90.49 Acquired absence of other specified parts of digestive tract
CPT/HCPCS: 99283; A9270

== ENCOUNTER 2025-07-04 11:56 | Emergency (ER) | payer MEDICARE, OTHER ==
[2025-07-04 12:40] LABS: BASOPHILS ABSOLUTE AUTO 0.1 K/mm3 (0.0-0.2); BASOPHILS PERCENT AUTO 1.0 % (0.0-1.0); EOSINOPHILS ABSOLUTE AUTO 0.1 K/mm3 (0.0-0.4); EOSINOPHILS PERCENT AUTO 2.1 % (0.0-6.0); IMMATURE GRAN ABSOLUTE AUTO 0.03 K/mm3 (0.00-0.05); IMMATURE GRAN PERCENT AUTO 0.4 % (0.0-0.4); LYMPHOCYTES ABSOLUTE AUTO 1.3 K/mm3 (1.0-4.8); LYMPHOCYTES PERCENT AUTO 19.2 % (24.0-44.0); MEAN PLATELET VOLUME 9.1 fl (9.4-12.4); MONOCYTES ABSOLUTE AUTO 0.7 K/mm3 (0.0-0.8); MONOCYTES PERCENT AUTO 9.7 % (0.0-8.0); NEUTROPHILS ABSOLUTE AUTO 4.6 K/mm3 (1.8-7.7); NEUTROPHILS PERCENT AUTO 67.6 % (41.0-71.0); NRBC ABSOLUTE 0.00 (0.00-0.02); NRBC PERCENT 0.0 % (0.0-0.2); PLATELET COUNT,PLT 243 K/mm3 (150-400); RED BLOOD CELL COUNT 5.40 M/mm3 (4.52-5.90); WHITE BLOOD CELL COUNT,WBC 6.81 K/mm3 (3.9-11.3)
[2025-07-04 13:24] LABS: A/G RATIO 0.8 (1-2); ALANINE AMINOTRANSFERASE,ALT 48.0 U/L (16-63); ASPARTATE AMNIOTRANSFERASE,AST 17.0 U/L (15-37); BILIRUBIN TOTAL 0.3 mg/dL (0.2-1.0); BLOOD UREA NITROGEN,BUN 14.0 mg/dL (7-18); CARBON DIOXIDE,CO2 25.0 mEq/L (21-32); CHLORIDE,CL 101.0 mEq/L (98-107); CREATININE 1.0 mg/dL (0.7-1.3); EST CRCL DRUG DOSING (CG) 85.45 mL/min; ESTIMATED GFR 85.0 mL/min (>60); GLUCOSE RANDOM 274.0 mg/dL (70-99); POTASSIUM,K 3.7 mEq/L (3.5-5.1); PROTEIN TOTAL,TP 7.7 g/dl (6.4-8.2); SODIUM,NA 138.0 mEq/L (136-145); TROPONIN I HIGH SENSITIVITY 8.0 pg/mL (<=76)
[2025-07-04] MEDS: LORazepam 2 MG/ML SDV IVPUSH ONE (13:43)
[2025-07-04] MEDS: Sodium Chloride 0.9% 10 ML Syringe FLUSH PRN (13:46)
== END 2025-07-04 15:05 | disposition home or self-care (01) ==
LOC: JD.ED 11:56
DX: E11.65 Type 2 diabetes mellitus with hyperglycemia (principal); I25.10 Atherosclerotic heart disease of native coronary artery without angina pectoris; I25.2 Old myocardial infarction; E78.00 Pure hypercholesterolemia, unspecified; J44.89 Other specified chronic obstructive pulmonary disease; K21.9 Gastro-esophageal reflux disease without esophagitis; E66.9 Obesity, unspecified; Z68.41 Body mass index [BMI] 40.0-44.9, adult; Z86.16 Personal history of COVID-19; Z90.49 Acquired absence of other specified parts of digestive tract; Z88.0 Allergy status to penicillin; Z88.5 Allergy status to narcotic agent; Z88.8 Allergy status to other drugs, medicaments and biological substances; Z91.041 Radiographic dye allergy status; Z91.013 Allergy to seafood; Z79.4 Long term (current) use of insulin; Z79.82 Long term (current) use of aspirin; Z79.899 Other long term (current) drug therapy
CPT/HCPCS: 36415; 80053; 82947; 83880; 84484; 85025; 93005; 96374; 99285; A9270; J2060; 93010; 99283

== ENCOUNTER 2025-07-20 00:28 | Emergency (ER) | payer MEDICARE, OTHER ==
[2025-07-20] MEDS ORDERED: Sodium Chloride 0.9% 10 ML Syringe FLUSH PRN (00:40)
[2025-07-20] MEDS ORDERED: Naloxone 0.4 MG/ML SDV IVPUSH PRN ×2 (00:59→01:59)
[2025-07-20 01:06] LABS: BASOPHILS ABSOLUTE AUTO 0.1 K/mm3 (0.0-0.2); BASOPHILS PERCENT AUTO 0.5 % (0.0-1.0); EOSINOPHILS ABSOLUTE AUTO 0.2 K/mm3 (0.0-0.4); EOSINOPHILS PERCENT AUTO 2.4 % (0.0-6.0); IMMATURE GRAN ABSOLUTE AUTO 0.06 K/mm3 (0.00-0.05); IMMATURE GRAN PERCENT AUTO 0.6 % (0.0-0.4); LYMPHOCYTES ABSOLUTE AUTO 1.7 K/mm3 (1.0-4.8); LYMPHOCYTES PERCENT AUTO 18.2 % (24.0-44.0); MEAN PLATELET VOLUME 9.6 fl (9.4-12.4); MONOCYTES ABSOLUTE AUTO 1.0 K/mm3 (0.0-0.8); MONOCYTES PERCENT AUTO 10.3 % (0.0-8.0); NEUTROPHILS ABSOLUTE AUTO 6.4 K/mm3 (1.8-7.7); NEUTROPHILS PERCENT AUTO 68.0 % (41.0-71.0); NRBC ABSOLUTE 0.00 (0.00-0.02); NRBC PERCENT 0.0 % (0.0-0.2); PLATELET COUNT,PLT 223 K/mm3 (150-400); RED BLOOD CELL COUNT 5.46 M/mm3 (4.52-5.90); WHITE BLOOD CELL COUNT,WBC 9.40 K/mm3 (3.9-11.3)
[2025-07-20 01:35] LABS: A/G RATIO 0.8 (1-2); ALANINE AMINOTRANSFERASE,ALT 72 U/L (16-63); BILIRUBIN TOTAL 0.4 mg/dL (0.2-1.0); BLOOD UREA NITROGEN,BUN 13 mg/dL (7-18); CARBON DIOXIDE,CO2 23 mEq/L (21-32); CHLORIDE,CL 101 mEq/L (98-107); CREATININE 1.3 mg/dL (0.7-1.3); EST CRCL DRUG DOSING (CG) 65.73 mL/min; ESTIMATED GFR 62 mL/min (>60); PROTEIN TOTAL,TP 7.9 g/dl (6.4-8.2); SODIUM,NA 139 mEq/L (136-145)
[2025-07-20] MEDS: diphenhydrAMINE 50 MG/ML SDV IVPUSH ONE (01:39)
[2025-07-20 01:51] LABS: TROPONIN I HIGH SENSITIVITY < 4 pg/mL (<=76)
[2025-07-20 01:55] LABS: GLUCOSE RANDOM 218 mg/dL (70-99); POTASSIUM,K 4.2 mEq/L (3.5-5.1)
[2025-07-20 01:56] LABS: ASPARTATE AMNIOTRANSFERASE,AST 40 U/L (15-37)
[2025-07-20] MEDS: Iopamidol 755 Mg/ML 100 ML Bottle IVPUSH ONE (02:51)
[2025-07-20 04:05] LABS: BASE EXCESS ARTERIAL 1.6 (-2-2.0); BICARBONATE,ARTERIAL 24.7 meq/L (22.0-26.0); O2 SATURATION ARTERIAL 94.3 % (96.0-97.0); PCO2 ARTERIAL 34.0 mmHg (35.0-45.0); PO2 ARTERIAL 76.0 mmHg (80.0-100.0)
[2025-07-20] MEDS: methylPREDNISolone Sodium Succinate 125 MG/2 ML SDV IVPUSH ONE (04:09)
== END 2025-07-20 06:17 | disposition home or self-care (01) ==
LOC: JD.ED 00:28
DX: J44.1 Chronic obstructive pulmonary disease with (acute) exacerbation (principal); E87.20 Acidosis, unspecified; I25.2 Old myocardial infarction; E78.00 Pure hypercholesterolemia, unspecified; I10 Essential (primary) hypertension; K21.9 Gastro-esophageal reflux disease without esophagitis; E11.9 Type 2 diabetes mellitus without complications; Z88.5 Allergy status to narcotic agent; Z88.0 Allergy status to penicillin; Z91.013 Allergy to seafood; Z88.1 Allergy status to other antibiotic agents; Z88.8 Allergy status to other drugs, medicaments and biological substances; Z91.041 Radiographic dye allergy status; Z79.02 Long term (current) use of antithrombotics/antiplatelets; Z79.899 Other long term (current) drug therapy; Z79.82 Long term (current) use of aspirin; Z86.16 Personal history of COVID-19; Z87.891 Personal history of nicotine dependence
CPT/HCPCS: 36415; 36600; 71045; 71275; 72191; 74175; 80053; 82803; 83605; 83735; 83880; 84484; 85025; 93005; 94640; 96361; 96365; 96375; 96376; 99285; A9270; J0456; J1200; J7030; J7050; Q9967; 93010; 99284; J1171; J2919

== ENCOUNTER 2025-08-03 09:58 | Emergency (ER) | payer MEDICARE, OTHER ==
[2025-08-03] MEDS: diphenhydrAMINE 50 MG/ML SDV IVPUSH ONE (10:49)
[2025-08-03] MEDS: Sodium Chloride 0.9% 10 ML Syringe FLUSH PRN (10:49)
[2025-08-03] MEDS: methylPREDNISolone Sodium Succinate 125 MG/2 ML SDV IVPUSH ONE (10:49)
[2025-08-03 10:59] LABS: BASOPHILS ABSOLUTE AUTO 0.1 K/mm3 (0.0-0.2); BASOPHILS PERCENT AUTO 0.7 % (0.0-1.0); EOSINOPHILS ABSOLUTE AUTO 0.6 K/mm3 (0.0-0.4); EOSINOPHILS PERCENT AUTO 5.5 % (0.0-6.0); IMMATURE GRAN ABSOLUTE AUTO 0.05 K/mm3 (0.00-0.05); IMMATURE GRAN PERCENT AUTO 0.5 % (0.0-0.4); LYMPHOCYTES ABSOLUTE AUTO 1.7 K/mm3 (1.0-4.8); LYMPHOCYTES PERCENT AUTO 15.4 % (24.0-44.0); MEAN PLATELET VOLUME 9.4 fl (9.4-12.4); MONOCYTES ABSOLUTE AUTO 0.9 K/mm3 (0.0-0.8); MONOCYTES PERCENT AUTO 8.5 % (0.0-8.0); NEUTROPHILS ABSOLUTE AUTO 7.4 K/mm3 (1.8-7.7); NEUTROPHILS PERCENT AUTO 69.4 % (41.0-71.0); NRBC ABSOLUTE 0.00 (0.00-0.02); NRBC PERCENT 0.0 % (0.0-0.2); PLATELET COUNT,PLT 201 K/mm3 (150-400); RED BLOOD CELL COUNT 5.27 M/mm3 (4.52-5.90); WHITE BLOOD CELL COUNT,WBC 10.70 K/mm3 (3.9-11.3)
[2025-08-03 11:00] LABS: APPEARANCE,URINE CLEAR (Clear); GLUCOSE,URINE 3+ (Negative); OCCULT BLOOD,URINE NEGATIVE (Negative)
[2025-08-03] MEDS ORDERED: Sodium Chloride 0.9% 10 ML Syringe FLUSH PRN (11:21)
[2025-08-03] MEDS ORDERED: Iopamidol 612 MG/ML 100 ML Bottle IVPUSH ONE (11:21)
[2025-08-03 11:25] LABS: A/G RATIO 0.9 (1-2); ALANINE AMINOTRANSFERASE,ALT 58.0 U/L (16-63); ASPARTATE AMNIOTRANSFERASE,AST 21.0 U/L (15-37); BILIRUBIN TOTAL 0.4 mg/dL (0.2-1.0); BLOOD UREA NITROGEN,BUN 11.0 mg/dL (7-18); CARBON DIOXIDE,CO2 27.0 mEq/L (21-32); CHLORIDE,CL 101.0 mEq/L (98-107); CREATININE 1.1 mg/dL (0.7-1.3); EST CRCL DRUG DOSING (CG) 77.68 mL/min; ESTIMATED GFR 75.0 mL/min (>60); GLUCOSE RANDOM 210.0 mg/dL (70-99); POTASSIUM,K 3.1 mEq/L (3.5-5.1); PROTEIN TOTAL,TP 7.4 g/dl (6.4-8.2); SODIUM,NA 139.0 mEq/L (136-145)
[2025-08-03] MEDS ORDERED: Ketorolac 15 MG/ML SDV IVPUSH ONE (13:04)
[2025-08-03] MEDS: Ketorolac 30 MG/ML SDV IVPUSH ONE (13:15)
[2025-08-03] MEDS: Potassium Chloride 20 MEQ Tab.ER PO ONE (13:18)
== END 2025-08-03 13:30 | disposition home or self-care (01) ==
LOC: JD.ED 09:58
DX: R51.9 Headache, unspecified (principal); R10.12 Left upper quadrant pain; J18.9 Pneumonia, unspecified organism; I25.10 Atherosclerotic heart disease of native coronary artery without angina pectoris; I10 Essential (primary) hypertension; E11.65 Type 2 diabetes mellitus with hyperglycemia; J44.89 Other specified chronic obstructive pulmonary disease; E87.6 Hypokalemia; E78.00 Pure hypercholesterolemia, unspecified; E66.9 Obesity, unspecified; K21.9 Gastro-esophageal reflux disease without esophagitis; M19.90 Unspecified osteoarthritis, unspecified site; N28.89 Other specified disorders of kidney and ureter; Z87.891 Personal history of nicotine dependence; Z86.16 Personal history of COVID-19; Z90.49 Acquired absence of other specified parts of digestive tract; Z95.5 Presence of coronary angioplasty implant and graft; Z79.899 Other long term (current) drug therapy; Z79.82 Long term (current) use of aspirin; Z79.51 Long term (current) use of inhaled steroids; Z79.02 Long term (current) use of antithrombotics/antiplatelets; Z79.2 Long term (current) use of antibiotics; Z79.891 Long term (current) use of opiate analgesic; Z91.013 Allergy to seafood; Z88.1 Allergy status to other antibiotic agents; Z88.8 Allergy status to other drugs, medicaments and biological substances; Z91.041 Radiographic dye allergy status; Z88.0 Allergy status to penicillin; Z88.5 Allergy status to narcotic agent; Z68.41 Body mass index [BMI] 40.0-44.9, adult
CPT/HCPCS: 36415; 70450; 74177; 80053; 81003; 83690; 85025; 93005; 96374; 96375; 99285; A9270; J1200; J7030; 93010; 99284; J1885; J2919

== ENCOUNTER 2025-08-08 21:18 | Emergency (ER) | payer MEDICARE, OTHER ==
[2025-08-08] MEDS ORDERED: Sodium Chloride 0.9% 10 ML Syringe FLUSH PRN (21:43)
[2025-08-08 21:57] LABS: BASOPHILS ABSOLUTE AUTO 0.1 K/mm3 (0.0-0.2); BASOPHILS PERCENT AUTO 1.0 % (0.0-1.0); EOSINOPHILS ABSOLUTE AUTO 0.7 K/mm3 (0.0-0.4); EOSINOPHILS PERCENT AUTO 8.9 % (0.0-6.0); IMMATURE GRAN ABSOLUTE AUTO 0.06 K/mm3 (0.00-0.05); IMMATURE GRAN PERCENT AUTO 0.7 % (0.0-0.4); LYMPHOCYTES ABSOLUTE AUTO 1.8 K/mm3 (1.0-4.8); LYMPHOCYTES PERCENT AUTO 21.2 % (24.0-44.0); MEAN PLATELET VOLUME 9.1 fl (9.4-12.4); MONOCYTES ABSOLUTE AUTO 0.8 K/mm3 (0.0-0.8); MONOCYTES PERCENT AUTO 9.4 % (0.0-8.0); NEUTROPHILS ABSOLUTE AUTO 4.9 K/mm3 (1.8-7.7); NEUTROPHILS PERCENT AUTO 58.8 % (41.0-71.0); NRBC ABSOLUTE 0.00 (0.00-0.02); NRBC PERCENT 0.0 % (0.0-0.2); PLATELET COUNT,PLT 201 K/mm3 (150-400); RED BLOOD CELL COUNT 5.08 M/mm3 (4.52-5.90); WHITE BLOOD CELL COUNT,WBC 8.27 K/mm3 (3.9-11.3)
[2025-08-08 22:17] LABS: APPEARANCE,URINE CLEAR (Clear); GLUCOSE,URINE 2+ (Negative); OCCULT BLOOD,URINE NEGATIVE (Negative)
[2025-08-08 22:18] LABS: A/G RATIO 1.0 (1-2); ALANINE AMINOTRANSFERASE,ALT 62 U/L (16-63); ASPARTATE AMNIOTRANSFERASE,AST 27 U/L (15-37); BILIRUBIN TOTAL 0.4 mg/dL (0.2-1.0); BLOOD UREA NITROGEN,BUN 11 mg/dL (7-18); CARBON DIOXIDE,CO2 25 mEq/L (21-32); CHLORIDE,CL 105 mEq/L (98-107); CREATININE 0.9 mg/dL (0.7-1.3); ESTIMATED GFR 96 mL/min (>60); GLUCOSE RANDOM 143 mg/dL (70-99); POTASSIUM,K 4.1 mEq/L (3.5-5.1); PROTEIN TOTAL,TP 7.0 g/dl (6.4-8.2); SODIUM,NA 139 mEq/L (136-145)
[2025-08-08 22:23] LABS: EPITHELIAL CELLS,URINE 0-5 /hpf (0-5)
[2025-08-08] MEDS: Ondansetron 4 MG/2 ML SDV IVPUSH ONE (22:23)
[2025-08-08] MEDS: Magnesium Citrate Solution 296 ML Bottle PO ONE (23:41)
== END 2025-08-08 23:50 | disposition home or self-care (01) ==
LOC: JD.ED 21:18
DX: K59.09 Other constipation (principal); I10 Essential (primary) hypertension; I25.2 Old myocardial infarction; E66.9 Obesity, unspecified; E11.9 Type 2 diabetes mellitus without complications; J44.89 Other specified chronic obstructive pulmonary disease; Z79.899 Other long term (current) drug therapy; Z88.5 Allergy status to narcotic agent; Z88.0 Allergy status to penicillin; Z88.8 Allergy status to other drugs, medicaments and biological substances; Z91.013 Allergy to seafood; Z86.16 Personal history of COVID-19; Z90.49 Acquired absence of other specified parts of digestive tract; Z87.891 Personal history of nicotine dependence
CPT/HCPCS: 36415; 74176; 80053; 81001; 83690; 85025; 96361; 96374; 96375; 96376; 99284; A9270; J1171; J2405; J7030

== ENCOUNTER 2025-08-12 20:47 | Emergency (ER) | payer MEDICARE, OTHER ==
[2025-08-12] MEDS: Acetaminophen/oxyCODONE 325-5 MG Tab PO ONE (21:26)
[2025-08-12 21:32] LABS: BASOPHILS ABSOLUTE AUTO 0.1 K/mm3 (0.0-0.2); BASOPHILS PERCENT AUTO 1.2 % (0.0-1.0); EOSINOPHILS ABSOLUTE AUTO 0.9 K/mm3 (0.0-0.4); EOSINOPHILS PERCENT AUTO 10.3 % (0.0-6.0); IMMATURE GRAN ABSOLUTE AUTO 0.08 K/mm3 (0.00-0.05); IMMATURE GRAN PERCENT AUTO 1.0 % (0.0-0.4); LYMPHOCYTES ABSOLUTE AUTO 1.5 K/mm3 (1.0-4.8); LYMPHOCYTES PERCENT AUTO 17.6 % (24.0-44.0); MEAN PLATELET VOLUME 9.1 fl (9.4-12.4); MONOCYTES ABSOLUTE AUTO 0.8 K/mm3 (0.0-0.8); MONOCYTES PERCENT AUTO 9.0 % (0.0-8.0); NEUTROPHILS ABSOLUTE AUTO 5.1 K/mm3 (1.8-7.7); NEUTROPHILS PERCENT AUTO 60.9 % (41.0-71.0); NRBC ABSOLUTE 0.00 (0.00-0.02); NRBC PERCENT 0.0 % (0.0-0.2); PLATELET COUNT,PLT 236 K/mm3 (150-400); RED BLOOD CELL COUNT 5.49 M/mm3 (4.52-5.90); WHITE BLOOD CELL COUNT,WBC 8.37 K/mm3 (3.9-11.3)
[2025-08-12 21:47] LABS: APPEARANCE,URINE CLEAR (Clear); GLUCOSE,URINE 2+ (Negative); OCCULT BLOOD,URINE NEGATIVE (Negative)
[2025-08-12 21:50] LABS: A/G RATIO 0.9 (1-2); ALANINE AMINOTRANSFERASE,ALT 70.0 U/L (16-63); ASPARTATE AMNIOTRANSFERASE,AST 31.0 U/L (15-37); BILIRUBIN TOTAL 0.3 mg/dL (0.2-1.0); BLOOD UREA NITROGEN,BUN 12.0 mg/dL (7-18); CARBON DIOXIDE,CO2 23.0 mEq/L (21-32); CHLORIDE,CL 105.0 mEq/L (98-107); CREATINE KINASE,CK 83.0 U/L (39-308); CREATININE 0.9 mg/dL (0.7-1.3); EST CRCL DRUG DOSING (CG) 94.94 mL/min; ESTIMATED GFR 96.0 mL/min (>60); GLUCOSE RANDOM 202.0 mg/dL (70-99); POTASSIUM,K 4.1 mEq/L (3.5-5.1); PROTEIN TOTAL,TP 7.6 g/dl (6.4-8.2); SODIUM,NA 137.0 mEq/L (136-145)
[2025-08-12 21:55] LABS: EPITHELIAL CELLS,URINE 0-5 /hpf (0-5)
[2025-08-12 22:09] LABS: BUPRENORPHINE SCREEN,URINE NEGATIVE (CUTOFF=10); METHADONE SCREEN, URINE NEGATIVE (CUT0FF=200); METHAMPHETAMINES SCREEN, URINE NEGATIVE (CUTOFF=500); OXYCODONE SCREEN,URINE NEGATIVE (CUT0FF=100); THC SCREEN,URINE 20 NG/ML NEGATIVE (CUTOFF=50)
[2025-08-12 22:10] LABS: AMPHETAMINES SCREEN, URINE NEGATIVE (CUTOFF=500)
== END 2025-08-12 23:34 | disposition home or self-care (01) ==
LOC: JD.ED 20:47
DX: G89.29 Other chronic pain (principal); M54.42 Lumbago with sciatica, left side; F41.9 Anxiety disorder, unspecified; F11.93 Opioid use, unspecified with withdrawal; R25.2 Cramp and spasm; R53.1 Weakness; E86.0 Dehydration; I11.9 Hypertensive heart disease without heart failure; I25.10 Atherosclerotic heart disease of native coronary artery without angina pectoris; E78.00 Pure hypercholesterolemia, unspecified; K21.9 Gastro-esophageal reflux disease without esophagitis; M19.90 Unspecified osteoarthritis, unspecified site; J44.89 Other specified chronic obstructive pulmonary disease; E11.9 Type 2 diabetes mellitus without complications; E66.9 Obesity, unspecified; Z86.16 Personal history of COVID-19; Z90.49 Acquired absence of other specified parts of digestive tract; Z95.5 Presence of coronary angioplasty implant and graft; Z79.899 Other long term (current) drug therapy; Z79.82 Long term (current) use of aspirin; Z79.01 Long term (current) use of anticoagulants; Z79.84 Long term (current) use of oral hypoglycemic drugs; Z88.1 Allergy status to other antibiotic agents; Z88.5 Allergy status to narcotic agent; Z88.0 Allergy status to penicillin; Z88.8 Allergy status to other drugs, medicaments and biological substances; Z91.013 Allergy to seafood; Z91.041 Radiographic dye allergy status
CPT/HCPCS: 36415; 80053; 80306; 81001; 82550; 83690; 83735; 85025; 96360; 99284; A9270; J7030

== ENCOUNTER 2025-08-22 13:27 | Emergency (ER) | payer MEDICARE, OTHER ==
[2025-08-22 14:15] LABS: BASOPHILS ABSOLUTE AUTO 0.1 K/mm3 (0.0-0.2); BASOPHILS PERCENT AUTO 0.5 % (0.0-1.0); EOSINOPHILS ABSOLUTE AUTO 0.0 K/mm3 (0.0-0.4); EOSINOPHILS PERCENT AUTO 0.1 % (0.0-6.0); IMMATURE GRAN ABSOLUTE AUTO 0.07 K/mm3 (0.00-0.05); IMMATURE GRAN PERCENT AUTO 0.7 % (0.0-0.4); LYMPHOCYTES ABSOLUTE AUTO 1.1 K/mm3 (1.0-4.8); LYMPHOCYTES PERCENT AUTO 10.6 % (24.0-44.0); MEAN PLATELET VOLUME 9.6 fl (9.4-12.4); MONOCYTES ABSOLUTE AUTO 0.5 K/mm3 (0.0-0.8); MONOCYTES PERCENT AUTO 4.9 % (0.0-8.0); NEUTROPHILS ABSOLUTE AUTO 8.5 K/mm3 (1.8-7.7); NEUTROPHILS PERCENT AUTO 83.2 % (41.0-71.0); NRBC ABSOLUTE 0.00 (0.00-0.02); NRBC PERCENT 0.0 % (0.0-0.2); PLATELET COUNT,PLT 277 K/mm3 (150-400); RED BLOOD CELL COUNT 5.56 M/mm3 (4.52-5.90); WHITE BLOOD CELL COUNT,WBC 10.16 K/mm3 (3.9-11.3)
[2025-08-22] MEDS: Sodium Chloride 0.9% 10 ML Syringe FLUSH PRN (14:26)
[2025-08-22 14:35] LABS: A/G RATIO 0.9 (1-2); ALANINE AMINOTRANSFERASE,ALT 55.0 U/L (16-63); BILIRUBIN TOTAL 0.5 mg/dL (0.2-1.0); BLOOD UREA NITROGEN,BUN 10.0 mg/dL (7-18); CARBON DIOXIDE,CO2 22.0 mEq/L (21-32); CHLORIDE,CL 101.0 mEq/L (98-107); CREATININE 1.3 mg/dL (0.7-1.3); EST CRCL DRUG DOSING (CG) 65.73 mL/min; ESTIMATED GFR 62.0 mL/min (>60); PROTEIN TOTAL,TP 7.9 g/dl (6.4-8.2); SODIUM,NA 140.0 mEq/L (136-145); TROPONIN I HIGH SENSITIVITY 6.0 pg/mL (<=76)
[2025-08-22 14:39] LABS: ASPARTATE AMNIOTRANSFERASE,AST 16.0 U/L (15-37); GLUCOSE RANDOM 294.0 mg/dL (70-99); POTASSIUM,K 4.2 mEq/L (3.5-5.1)
== END 2025-08-22 16:06 | disposition home or self-care (01) ==
LOC: JD.ED 13:27
DX: J44.1 Chronic obstructive pulmonary disease with (acute) exacerbation (principal); R10.12 Left upper quadrant pain; I25.10 Atherosclerotic heart disease of native coronary artery without angina pectoris; I25.2 Old myocardial infarction; I10 Essential (primary) hypertension; E78.00 Pure hypercholesterolemia, unspecified; K21.9 Gastro-esophageal reflux disease without esophagitis; E11.9 Type 2 diabetes mellitus without complications; E66.9 Obesity, unspecified; Z86.16 Personal history of COVID-19; Z95.5 Presence of coronary angioplasty implant and graft; Z90.49 Acquired absence of other specified parts of digestive tract; Z88.0 Allergy status to penicillin; Z88.5 Allergy status to narcotic agent; Z88.1 Allergy status to other antibiotic agents; Z88.2 Allergy status to sulfonamides; Z88.8 Allergy status to other drugs, medicaments and biological substances; Z91.013 Allergy to seafood; Z91.041 Radiographic dye allergy status; Z79.82 Long term (current) use of aspirin; Z79.899 Other long term (current) drug therapy; Z68.41 Body mass index [BMI] 40.0-44.9, adult
CPT/HCPCS: 36415; 71045; 80053; 83735; 84484; 85025; 93005; 94640; 96374; 96376; 99285; A9270; J1171

== ENCOUNTER 2025-09-01 11:46 | Emergency (ER) | payer MEDICARE, OTHER ==
[2025-09-01] MEDS ORDERED: Sodium Chloride 0.9% 10 ML Syringe FLUSH PRN (11:59)
[2025-09-01 12:25] LABS: BASOPHILS ABSOLUTE AUTO 0.1 K/mm3 (0.0-0.2); BASOPHILS PERCENT AUTO 1.0 % (0.0-1.0); EOSINOPHILS ABSOLUTE AUTO 0.8 K/mm3 (0.0-0.4); EOSINOPHILS PERCENT AUTO 9.4 % (0.0-6.0); IMMATURE GRAN ABSOLUTE AUTO 0.06 K/mm3 (0.00-0.05); IMMATURE GRAN PERCENT AUTO 0.7 % (0.0-0.4); LYMPHOCYTES ABSOLUTE AUTO 1.1 K/mm3 (1.0-4.8); LYMPHOCYTES PERCENT AUTO 12.4 % (24.0-44.0); MEAN PLATELET VOLUME 9.3 fl (9.4-12.4); MONOCYTES ABSOLUTE AUTO 0.9 K/mm3 (0.0-0.8); MONOCYTES PERCENT AUTO 10.1 % (0.0-8.0); NEUTROPHILS ABSOLUTE AUTO 5.9 K/mm3 (1.8-7.7); NEUTROPHILS PERCENT AUTO 66.4 % (41.0-71.0); NRBC ABSOLUTE 0.00 (0.00-0.02); NRBC PERCENT 0.0 % (0.0-0.2); PLATELET COUNT,PLT 191 K/mm3 (150-400); RED BLOOD CELL COUNT 5.54 M/mm3 (4.52-5.90); WHITE BLOOD CELL COUNT,WBC 8.81 K/mm3 (3.9-11.3)
[2025-09-01] MEDS ORDERED: Naloxone 0.4 MG/ML SDV IVPUSH PRN ×2 (12:41→13:05)
[2025-09-01 12:53] LABS: A/G RATIO 0.8 (1-2); ALANINE AMINOTRANSFERASE,ALT 52.0 U/L (16-63); ASPARTATE AMNIOTRANSFERASE,AST 19.0 U/L (15-37); BILIRUBIN TOTAL 0.6 mg/dL (0.2-1.0); BLOOD UREA NITROGEN,BUN 6.0 mg/dL (7-18); CARBON DIOXIDE,CO2 22.0 mEq/L (21-32); CHLORIDE,CL 103.0 mEq/L (98-107); CREATININE 0.9 mg/dL (0.7-1.3); EST CRCL DRUG DOSING (CG) 92.21 mL/min; ESTIMATED GFR 96.0 mL/min (>60); GLUCOSE RANDOM 196.0 mg/dL (70-99); POTASSIUM,K 3.6 mEq/L (3.5-5.1); PROTEIN TOTAL,TP 7.6 g/dl (6.4-8.2); SODIUM,NA 139.0 mEq/L (136-145); TROPONIN I HIGH SENSITIVITY 5.0 pg/mL (<=76)
[2025-09-01 12:54] LABS: ETHANOL BLOOD MEDICAL 0.0 gm% (0.00)
[2025-09-01 14:18] LABS: APPEARANCE,URINE CLEAR (Clear); GLUCOSE,URINE 2+ (Negative); OCCULT BLOOD,URINE NEGATIVE (Negative)
[2025-09-01 14:21] LABS: BUPRENORPHINE SCREEN,URINE NEGATIVE (CUTOFF=10); METHADONE SCREEN, URINE NEGATIVE (CUT0FF=200); METHAMPHETAMINES SCREEN, URINE NEGATIVE (CUTOFF=500); OXYCODONE SCREEN,URINE NEGATIVE (CUT0FF=100); THC SCREEN,URINE 20 NG/ML NEGATIVE (CUTOFF=50)
[2025-09-01 14:25] LABS: AMPHETAMINES SCREEN, URINE NEGATIVE (CUTOFF=500)
[2025-09-01 14:49] LABS: EPITHELIAL CELLS,URINE 0-5 /hpf (0-5)
== END 2025-09-01 16:55 | disposition home or self-care (01) ==
LOC: JD.ED 11:46
DX: R07.9 Chest pain, unspecified (principal); R05.9 Cough, unspecified; I10 Essential (primary) hypertension; E78.00 Pure hypercholesterolemia, unspecified; E11.9 Type 2 diabetes mellitus without complications; I25.2 Old myocardial infarction; J44.9 Chronic obstructive pulmonary disease, unspecified; Z86.73 Personal history of transient ischemic attack (TIA), and cerebral infarction without residual deficits; Z86.16 Personal history of COVID-19; Z88.5 Allergy status to narcotic agent; Z88.2 Allergy status to sulfonamides; Z88.8 Allergy status to other drugs, medicaments and biological substances; Z88.0 Allergy status to penicillin; Z91.013 Allergy to seafood; Z88.1 Allergy status to other antibiotic agents; Z79.82 Long term (current) use of aspirin; Z79.899 Other long term (current) drug therapy
CPT/HCPCS: 36415; 71045; 80053; 80306; 80307; 81001; 83605; 83690; 83735; 84484; 85025; 86140; 93005; 96361; 96374; 96376; 99285; J7030; 93010; 99284; J1171